=== PATIENT | female | born 2000 | race Caucasian/White ===

== ENCOUNTER 2021-08-03 00:38 | Emergency (ER) | payer MEDICAID, SELFPAY ==
[2021-08-03 00:50] VITALS: BP 161/109; PULSE 72; RESP 18; TEMP 36.9; O2SAT 98; BMI 34.3
--- NOTE | 2021-08-03 01:00 | W.ED.PREGNAN ---
HPI - General: Chief complaint: Vaginal Bleeding Stated complaint: 2 Months Preg\ Bleeding Time Seen by Provider: 08/03/21 00:47 Source: patient Mode of arrival: ambulatory Limitations: no limitations History of Present Illness: HPI Narrative: 20-year-old female who believes she is 6 to 8 weeks states that she has been having some vaginal spotting over the last 3 to 4 days states that starting tonight 4 to 5 hours ago she has had heavier bleeding she states it is on and off to go through a pad denies any clots or tissue passed. She denies any pain she denies any worsening proving factors. This is her first . Associated symptoms: Deny abdominal pain, headache(s), nausea or vomiting Review of Systems Const: Denies: fever(s), chills, body aches or change in appetite Eyes: Denies: blurry vision or eye discomfort ENMT: Denies: throat pain or dental pain Card: Denies: chest pain Resp: Denies: dyspnea GI: Denies: abdominal pain, nausea, vomiting or diarrhea : Reports: vaginal bleeding Musc: Denies: neck pain or back pain Skin/Breast: Denies: rash Neuro: Denies: headache(s) Psych: Denies: depression Cristian/Lymph: Denies: easy bruising All/Imm: Denies: urticaria Physical Exam Const: COMMON NORMALS: no acute distress, patient oriented x3 and healthy appearing HENMT: COMMON NORMALS: normocephalic and atraumatic HEAD & SCALP: normocephalic and atraumatic Eye: COMMON NORMALS: Equal, round and reactive pupils present and EOMs intact bilaterally PUPIL: Yes Equal, round and reactive pupils present Neck/C-Spine: COMMON NORMALS: full ROM and supple Chest: COMMONS NORMALS: normal inspection of the chest and normal palpation of entire chest wall Resp: COMMON NORMALS: normal respiratory effort, No retractions, No use of accessory muscles and clear to auscultation bilaterally AUSCULTATION: clear to auscultation bilaterally Cardio: COMMON NORMALS: regular rate, regular rhythm and No murmurs present (Cardio) RATE: regular rate RHYTHM: regular rhythm GI: COMMON NORMALS: Normal to inspection, nondistended, normoactive bowel sounds present, Soft to palpation, non-tender and no masses PALPATION: Yes Soft to palpation : OTHER: Patient does have blood along with clot in the vaginal vault cervix is slightly open with some blood coming from the cervical os no tissue noted Extremity: COMMON NORMALS: normal to inspection and full ROM Neuro: COMMON NORMALS: patient oriented x3, moves all extremities and no focal motor deficits Psych: COMMON NORMALS: mental status grossly normal, Normal thought process present and cooperative THOUGHT PROCESS: Normal thought process present Skin: COMMON NORMALS: no rashes or lesions noted and no wounds GENERAL SKIN EXAM: no rashes or lesions noted Course Vital Signs: Vital signs: Vital Signs Temperature 98.4 F 08/03/21 00:50 Pulse Rate 64 08/03/21 01:41 Respiratory Rate 17 08/03/21 01:41 Blood Pressure 133/82 08/03/21 01:41 Pulse Oximetry 98 08/03/21 01:41 MDM - OB/Uterine Contractions MDM Narrative: Medical decision making narrative: Patient presents here with a threatened miscarriage is likely inevitable. Cervix is slightly open ultrasound shows likely normal wall motion as well she has no signs of ectopic she has follow-up with her OB this week and is to follow-up as scheduled her bleeding is minimal here she does not require RhoGam she is stable for discharge is to follow-up as scheduled and return if worsening. Lab Data: Labs: Lab Results 08/03/21 08/03/21 08/03/21 01:36 01:36 01:36 WBC 15.2 10^3/uL H 10 ^3/uL (4.0-10.0) RBC 4.46 10^6/uL 10^6 /uL (4.1-5.3) Hgb 14.0 g/dL g/dL (11.5-15.3) Hct 42.4 % % (37.0-47.0) MCV 95.1 fl fl (81-99) MCH 31.4 pg pg (28.0-34.0) MCHC 33.0 g/dL g/dL (30.0-36.0) RDW 14.7 % % (12.1-15.1) Plt Count 275 10^3/cmm 10^3 /cmm (130-400) MPV 9.8 fL fL (7.4-10.4) Neut % (Auto) 71.7 % % Lymph % (Auto) 20.1 % % [place] % (Auto) 5.7 % % Eos % (Auto) 0.3 % % Baso % (Auto) 0.3 % % Neut # (Auto) 10.91 10^3/uL H 1 0^3/uL (1.8-7.7) Lymph # (Auto) 3.1 10^3/uL 10^3/ uL (0.8-4.8) [place] # (Auto) 0.9 10^3/uL 10^3/ uL (0.2-0.9) Eos # (Auto) 0.1 10^3/uL 10^3/ uL (0.0-0.8) Baso # (Auto) 0.1 10^3/uL 10^3/ uL (0.0-0.1) Nucleated RBC % (a uto) 0 % % Nucleated RBCs # 0.0 /100WBC /100W BC Sodium 139 mmol/L mmol/L (136-145) Potassium 4.3 mmol/L mmol/L (3.5-5.1) Chloride 100 mmol/L mmol/L (98-107) Carbon Dioxide 25 mmol/L mmol/L (22-29) Anion Gap 18.3 (5-19) BUN 14 mg/dL mg/dL (6-20) Creatinine 0.6 mg/dL mg/dL (0.5-0.9) GFR Calculation 126.2 mL/min mL/m in (90-130) Glucose 87 mg/dL mg/dL (65-115) Calculated Osmolal ity 288 mOsm/kg mOsm/ kg (285-295) Calcium 9.2 mg/dL mg/dL (8.5-10.5) Total Bilirubin 0.2 mg/dL mg/dL (0.15-1.2) AST 15 U/L U/L (0-32) ALT 23 U/L U/L (0-33) Alkaline Phosphata se 55 IU/L IU/L (35-105) Total Protein 6.9 g/dL g/dL (6.6-8.7) Albumin 4.3 g/dL g/dL (3.5-5.2) Globulin 2.6 g/dL g/dL (1.3-4.6) Ser , Alicia i-Qnt 3004.00 mIU/mL mI U/mL Blood Type A Positive Rho(D) Type Positive Antibody Screen Negative Discharge Plan Discharge Patient Disposition: Home Clinical Impression: Threatened Condition: Stable Discharge Orders: Discharge ED (Routine); Ordered 08/03/21 Ordered By: Sofiya Lock Discharge Diet: Advance as tolerated Discharge Activity: Resume usual activity Patient Instructions: Threatened Miscarriage (ED) Coding Level of Care Code ED Produce Associate for Ben Fwd Exam Comprehensive
[2021-08-03 01:41] VITALS: BP 133/82; PULSE 64; RESP 17; O2SAT 98
[2021-08-03 02:07] LABS: Basophils # 0.1 10^3/uL (0.0-0.1); Basophils % 0.3 %; Eosinophils # 0.1 10^3/uL (0.0-0.8); Eosinophils % 0.3 %; Hematocrit 42.4 % (37.0-47.0); Lymphocytes # 3.1 10^3/uL (0.8-4.8); Lymphocytes % 20.1 %; Mean Corpuscular Hemoglobin 31.4 pg (28.0-34.0); Mean Corpuscular Volume 95.1 fl (81-99); Mean Platelet Volume 9.8 fL (7.4-10.4); Monocytes # 0.9 10^3/uL (0.2-0.9); Monocytes % 5.7 %; Neutrophils # 10.91 10^3/uL (1.8-7.7); Neutrophils % 71.7 %; Nucleated Red Blood Cells % 0 %; Platelet Count 275 10^3/cmm (130-400); Red Blood Count 4.46 10^6/uL (4.1-5.3); Red Cell Distribution Width 14.7 % (12.1-15.1); White Blood Count 15.2 10^3/uL (4.0-10.0)
--- NOTE | 2021-08-03 02:37 | USR_ITS ---
PROCEDURE INFORMATION: Exam: US , Transvaginal Exam date and time: 08/03/2021 2:37 AM Age: 20 years old Clinical indication: Lmp or gestational age (in weeks): 9w0d; Antepartum complications; Bleeding; ; Patient HX: ; Additional info: Threatened ab TECHNIQUE: Imaging protocol: Real-time transvaginal obstetrical ultrasound of the maternal pelvis with image documentation. Transvaginal imaging was used for better evaluation of the fetus, adnexa, and/or cervix. COMPARISON: No relevant prior studies available. FINDINGS: Gestation: Gestational sac is present in the lower uterine segment and is partially surrounded by fluid. Mean gestational sac diameter is 1.06 cm. No pole. No heart rate is identified. BIOMETRY: Gestational age (AUA): Estimated gestational age = 6 weeks/1 day. MATERNAL: Right ovary/adnexa: Right ovary is normal and measures 2.8 x 1.5 x 2 cm. Normal ovarian blood flow. Normal ovarian blood flow. Left ovary/adnexa: Left ovary is normal and measures 2 x 1.3 x 1.7 cm . Intraperitoneal space: Tiny amount of free fluid in the pelvic cul-de-sac. US/US OB transvaginal [id number] IMPRESSION: Gestational sac present in the lower uterine segment with surrounding fluid. Findings are suspicious for failed . No pole or heart rate. Radiation Dose CTDIVOL = (mGy): DLP = (mGy-cm)
[2021-08-03 02:44] LABS: Alanine Aminotransferase 23 U/L (0-33); Albumin Level 4.3 g/dL (3.5-5.2); Alkaline Phosphatase 55 IU/L (35-105); Aspartate Amino Transferase 15 U/L (0-32); Blood Urea Nitrogen 14 mg/dL (6-20); Calcium 9.2 mg/dL (8.5-10.5); Carbon Dioxide 25 mmol/L (22-29); Chloride 100 mmol/L (98-107); Globulin 2.6 g/dL (1.3-4.6); Glomerular Filtration Rate 126.2 mL/min (90-130); Glucose 87 mg/dL (65-115); Osmolality Calculated 288 mOsm/kg (285-295); Sodium 139 mmol/L (136-145); Total Bilirubin 0.2 mg/dL (0.15-1.2); Total Protein 6.9 g/dL (6.6-8.7)
[2021-08-03 02:50] LABS: Anion Gap 18.3 (5-19); Potassium 4.3 mmol/L (3.5-5.1)
[2021-08-03 03:45] VITALS: BP 130/93
== END 2021-08-03 03:47 | disposition home or self-care (01) ==
PROVIDERS: Nurse Practitioner Family; Emergency Provider Emergency Medicine
DX: O20.0 Threatened abortion (principal); Z3A.01 Less than 8 weeks gestation of pregnancy
CPT/HCPCS: 76817; 80053; 84702; 85025; 86850; 86900; 99283

== ENCOUNTER 2022-06-14 12:45 | Emergency (ER) | payer MEDICAID, SELFPAY ==
[2022-06-14 12:48] VITALS: BP 122/72; PULSE 94; RESP 16; TEMP 36.1; O2SAT 95
--- NOTE | 2022-06-14 12:55 | W.ED.GENADLT ---
HPI - General Adult General: Chief complaint: General Medical Stated complaint: can't talk, allergies Time Seen by Provider: 06/14/22 12:54 History of Present Illness: Patient is a 21-year-old female comes to the ED with sore throat. Patient says she has been having a lot of nasal drainage and congestion over the past couple days. 3 days ago she started having a scratchy voice and 2 days ago her voice was completely gone. Over the past 24 hours her voice started to improve. She denies any fevers, chills, trouble breathing, throat tightening/swelling. She states her sore throat is mild. Endorses voice hoarseness. Denies painful swallowing or any trouble swallowing. Associated symptoms: Deny chest pain, dyspnea, headache(s), nausea, rash, palpitations or vomiting Review of Systems Const: Denies: fever(s), chills or fatigue Eyes: Denies: change in vision or eye discomfort ENMT: Reports: throat pain and hoarseness; Denies: odynophagia, swelling of lips/tongue, nasal discharge or nasal congestion Card: Denies: chest pain, palpitations, edema, swelling of feet/ankles, dyspnea on exertion or orthopnea Resp: Denies: dyspnea, productive cough or non-productive cough GI: Denies: abdominal pain, nausea, vomiting, diarrhea, constipation or hematochezia : Denies: flank pain, dysuria or hematuria Musc: Denies: neck pain, back pain or extremity swelling Skin/Breast: Denies: rash or new lesions Neuro: Denies: headache(s), numbness in extremities or weakness in extremities [facility] ED PFSH: Medical History (Updated 06/15/22 @ 11:46 by ANKIT Hercules) No pertinent family history No pertinent past medical history Female Reproductive History: Date of last menstrual period: 05/27/21 Physical Exam Const: COMMON NORMALS: no acute distress, patient oriented x3, healthy appearing and alert GENERAL APPEARANCE: cooperative and comfortable OTHER: Patient's voice is hoarse and a little scratchy. HENMT: COMMON NORMALS: normocephalic HEAD & SCALP: normocephalic MOUTH: Normal oral and palatal mucosa present THROAT: posterior oropharynx normal, tonsils normal and uvula midline Neck/C-Spine: COMMON NORMALS: supple GENERAL: Yes normal visual inspection Resp: COMMON NORMALS: normal respiratory effort, No retractions, No use of accessory muscles and clear to auscultation bilaterally AUSCULTATION: clear to auscultation bilaterally Cardio: COMMON NORMALS: regular rate, regular rhythm, S1 normal heart sound present, S2 normal heart sound present, No gallops present (Cardio), No clicks present (Cardio), No murmurs present (Cardio) and Peripheral pulses 2+ throughout RATE: regular rate RHYTHM: regular rhythm HEART SOUNDS: S1 normal heart sound present and S2 normal heart sound present PERIPHERAL PULSES: Peripheral pulses 2+ throughout GI: COMMON NORMALS: Normal to inspection, nondistended, normoactive bowel sounds present, Soft to palpation, non-tender and no masses PALPATION: Yes Soft to palpation : COMMON NORMALS: Yes no CVA tenderness BLADDER/KIDNEY EXAM: Yes no CVA tenderness Back/Pelvis: COMMON NORMALS: no CVA tenderness Extremity: COMMON NORMALS: normal to inspection Neuro: COMMON NORMALS: patient oriented x3 SENSORIUM/ORIENTATION: Yes alert GAIT: Yes Normal gait present Skin: GENERAL SKIN EXAM: dry skin Course Vital Signs: Vital signs: Vital Signs Temperature 97.0 F L 06/14/22 12:48 Pulse Rate 94 06/14/22 12:48 Respiratory Rate 16 06/14/22 12:48 Blood Pressure 122/72 06/14/22 12:48 Pulse Oximetry 95 06/14/22 12:48 Oxygen Delivery Me thod 06/14/22 12:48 MDM - General Adult Medical Decision Making Patient is a 21-year-old female comes to the ED with sore throat. Patient says she has been having a lot of nasal drainage and congestion over the past couple days. 3 days ago she started having a scratchy voice and 2 days ago her voice was completely gone. Over the past 24 hours her voice started to improve. She denies any fevers, chills, trouble breathing, throat tightening/swelling. Vitals are stable. Patient's voice is a little hoarse and scratchy but the rest of her exam is benign. She appears in no acute distress or pain. Strep was negative. Patient was diagnosed with viral laryngitis and was discharged home. Told to follow-up with PCP within the next week for reevaluation. Return to ED precautions given. Patient understood and agreed with plan. Lab Data I reviewed the patient's lab results. Laboratory Results Group A Strep Rapid Negative (Negative) 06/14/22 13:30 Discharge Plan Discharge Patient Disposition: Home Clinical Impression: Viral laryngitis Condition: Stable Discharge Orders: Discharge ED (Routine); Ordered 06/14/22 Ordered By: Rich Salgado Discharge Diet: Regular Discharge Activity: Resume usual activity Patient Instructions: Acute Laryngitis - Adult Activity Restrictions/Additional Instructions: Follow-up with medical provider as directed in the next 5 to 7 days for reevaluation. Take medications as prescribed. Return to the ER or your medical provider if condition worsens. Please read and understand discharge instructions. Thank you for choosing [facility] for your healthcare needs today. Please realize this is an emergency room and that we are providing you with a medical screening exam and this may not be complete and all inclusive of all the testing and or work up that you may need to determine your ailment or severity of your illness. It is very important that you follow up as instructed or that you return to the Emergency Department should you have concerns or if your condition changes or worsens in any way. Coding Level of Care Code ED Director Of Collections for Ben Newby Exam Comprehensive
[2022-06-14 14:05] LABS: Rapid Strep A Test Negative (Negative)
== END 2022-06-14 14:47 | disposition home or self-care (01) ==
PROVIDERS: Emergency Provider Physician Assistant
DX: J04.0 Acute laryngitis (principal)
CPT/HCPCS: 87081; 87880; 99283

== ENCOUNTER 2022-10-06 07:49 | Outpatient (CLI) | payer OTHER, MEDICAID, SELFPAY ==
--- NOTE | 2022-10-06 | US_ITS ---
WS: [id number] OBSTETRICAL ULTRASOUND COMPLETE HISTORY: ANATOMY SCAN COMPARISON: None available. Single intrauterine gestation in breech presentation. Cervix is Closed and normal length. Cervical length is 4.1 cm. Normal amount of amniotic fluid surrounds the fetus. Placenta: Posterior and LEFT, no previa or abruption. Placenta grade 1 Heart: 144 BPM. Four chambers are identified. RIGHT and LEFT outflow tracts are unremarkable. Anatomy: Intracranial structures and spine are normal. kidneys, stomach and urinary bladd er are unremarkable. Abdominal wall, three-vessel cord and cord insertion site are normal. 4 extremities are present. profile: Unremarkable. Gender: Male. measurements: BPD = 4.8 cm = 20w4d HC = 18.9 cm = 21w2d AC = 16.0 cm = 21w1d FL = 3.4 cm = 20w4d EFW: 384 g. Biometry is internally concordant. AGA by ultrasound: 20w6d MARY by ultrasound: 02/17/2023 US/US OB >= 14 weeks fetus [id number] IMPRESSION: 1. Single intrauterine gestation of 20w6d with an MARY of 02/17/2023. 2. Unremarkable screening survey of anatomy.
== END 2022-10-06 07:50 | disposition home or self-care (01) ==
LOC: RAD 07:52
PROVIDERS: PCP Family Medicine; Visit Provider Family Medicine
DX: Z34.82 Encounter for supervision of other normal pregnancy, second trimester (principal)
CPT/HCPCS: 76805

== ENCOUNTER 2023-01-05 12:06 | Outpatient (CLI) | payer OTHER, MEDICAID, SELFPAY ==
[2023-01-05 12:25] VITALS: BP 139/94; PULSE 80
[2023-01-05 12:41] VITALS: BP 139/84; RESP 16
[2023-01-05 12:42] VITALS: BP 145/78; PULSE 53
[2023-01-05 12:44] VITALS: BMI 38.0
[2023-01-05 12:57] VITALS: BP 142/86; PULSE 56
[2023-01-05 13:26] LABS: Add Urine Microscopic? NO; Charge for UA Resulting for Rev
[2023-01-05 13:29] LABS: Bilirubin Urine Neg (Negative); Blood Urine Neg (Negative); Glucose Urine UA Norm (Normal); Ketones Urine 1+ (Negative); Leukocyte Esterase Urine Negative (Negative); Nitrate Urine Negative (Negative); Protein Urine Neg (Negative); Urine Appearance Clear (CLEAR); Urine Color Yellow (Yellow); Urobilinogen Urine Neg (Negative); pH Urine 6.5 (5-7)
[2023-01-05 13:35] LABS: Basophils % 0.1 %; Eosinophils % 0.5 %; Hematocrit 37.5 % (37.0-47.0); Hemoglobin 12.2 g/dL (11.5-15.3); Lymphocytes # 1.9 10^3/uL (0.8-4.8); Lymphocytes % 22.3 %; Mean Corpuscular HGB Conc 32.5 g/dL (30.0-36.0); Mean Corpuscular Volume 95.4 fl (81-99); Mean Platelet Volume 11.1 fL (7.4-10.4); Monocytes # 0.5 10^3/uL (0.2-0.9); Monocytes % 5.6 %; Neutrophils # 6.08 10^3/uL (1.8-7.7); Nucleated Red Blood Cells % 0 %; Platelet Count 210 10^3/cmm (130-400); Red Blood Count 3.93 10^6/uL (4.1-5.3); Red Cell Distribution Width 13.6 % (12.1-15.1); White Blood Count 8.6 10^3/uL (4.0-10.0)
[2023-01-05 14:03] LABS: Urine Creatinine 124 mg/dL (28-217); Urine Protein Random 19 mg/dL
[2023-01-05 14:03] LABS: Alanine Aminotransferase 19 U/L (0-33); Albumin Level 3.3 g/dL (3.5-5.2); Alkaline Phosphatase 100 U/L (35-105); Aspartate Amino Transferase 24 U/L (0-32); Blood Urea Nitrogen 6 mg/dL (6-20); Carbon Dioxide 20 mmol/L (22-29); Chloride 103 mmol/L (98-107); Globulin 2.7 g/dL (1.3-4.6); Glomerular Filtration Rate 152.9 mL/min (90-130); Glucose 76 mg/dL (65-115); Osmolality Calculated 278 mOsm/kg (285-295); Sodium 136 mmol/L (136-145); Total Bilirubin 0.3 mg/dL (0.15-1.2); Uric Acid 5.3 mg/dL (2.4-5.7)
[2023-01-05 14:08] LABS: UPRO/UCREAT Ratio 0.15 mg/mg CR
== END 2023-01-05 13:15 | disposition home or self-care (01) ==
LOC: OPOB 12:06 → OBGYN 12:07
PROVIDERS: PCP Family Medicine; Visit Provider Family Medicine
DX: O24.419 Gestational diabetes mellitus in pregnancy, unspecified control (principal)
CPT/HCPCS: 36415; 59025; 80053; 81003; 82570; 84156; 84550; 85025; 99211

== ENCOUNTER 2023-01-08 10:23 | Outpatient (CLI) | payer OTHER, MEDICAID, SELFPAY ==
[2023-01-08 10:23] VITALS: BMI 38.2
[2023-01-08 10:34] VITALS: BP 165/90; PULSE 71
[2023-01-08 10:45] VITALS: BP 152/87; PULSE 78
[2023-01-08 10:55] VITALS: BP 149/82; PULSE 64
== END 2023-01-08 11:05 | disposition home or self-care (01) ==
LOC: OPOB 10:28 → OBGYN 10:29
PROVIDERS: Absent Provider Family Medicine; PCP Family Medicine; Visit Provider Family Medicine
DX: O24.419 Gestational diabetes mellitus in pregnancy, unspecified control (principal); Z3A.00 Weeks of gestation of pregnancy not specified
CPT/HCPCS: 59025; 99211

== ENCOUNTER 2023-01-12 18:50 | Outpatient (CLI) | payer OTHER, MEDICAID, SELFPAY ==
[2023-01-12 18:49] VITALS: BMI 38.0
[2023-01-12 19:06] VITALS: BP 127/74; PULSE 64
[2023-01-12 19:22] VITALS: BP 143/88; PULSE 57
[2023-01-12 19:32] LABS: Add Urine Microscopic? NO; Charge for UA Resulting for Rev
[2023-01-12 19:34] LABS: Basophils % 0.3 %; Eosinophils % 0.3 %; Hematocrit 33.6 % (37.0-47.0); Hemoglobin 11.2 g/dL (11.5-15.3); Lymphocytes # 1.9 10^3/uL (0.8-4.8); Lymphocytes % 19.4 %; Mean Corpuscular HGB Conc 33.3 g/dL (30.0-36.0); Mean Corpuscular Hemoglobin 31.1 pg (28.0-34.0); Mean Corpuscular Volume 93.3 fl (81-99); Mean Platelet Volume 11.2 fL (7.4-10.4); Monocytes # 0.6 10^3/uL (0.2-0.9); Monocytes % 6.2 %; Neutrophils # 7.14 10^3/uL (1.8-7.7); Neutrophils % 73.2 %; Nucleated Red Blood Cells % 0 %; Platelet Count 227 10^3/cmm (130-400); Red Cell Distribution Width 13.5 % (12.1-15.1); White Blood Count 9.8 10^3/uL (4.0-10.0)
[2023-01-12 19:36] VITALS: BP 138/83; PULSE 78
[2023-01-12 19:51] VITALS: BP 158/88; PULSE 86
[2023-01-12 19:51] LABS: Bilirubin Urine Neg (Negative); Blood Urine Neg (Negative); Glucose Urine UA Norm (Normal); Ketones Urine Negative (Negative); Leukocyte Esterase Urine Negative (Negative); Nitrate Urine Negative (Negative); Protein Urine Neg (Negative); Urine Appearance Clear (CLEAR); Urine Color Yellow (Yellow); Urobilinogen Urine Norm (Negative); pH Urine 5 (5-7)
[2023-01-12 20:00] LABS: Alanine Aminotransferase 22 U/L (0-33); Albumin Level 3.4 g/dL (3.5-5.2); Alkaline Phosphatase 98 U/L (35-105); Anion Gap 19.7 (5-19); Aspartate Amino Transferase 23 U/L (0-32); Blood Urea Nitrogen 12 mg/dL (6-20); Calcium 8.5 mg/dL (8.5-10.5); Carbon Dioxide 16 mmol/L (22-29); Chloride 111 mmol/L (98-107); Globulin 2.4 g/dL (1.3-4.6); Glomerular Filtration Rate 197.8 mL/min (90-130); Glucose 80 mg/dL (65-115); Osmolality Calculated 293 mOsm/kg (285-295); Potassium 4.7 mmol/L (3.5-5.1); Sodium 142 mmol/L (136-145); Total Bilirubin 0.2 mg/dL (0.15-1.2); Total Protein 5.8 g/dL (6.6-8.7)
[2023-01-12 20:02] LABS: Urine Creatinine 125 mg/dL (28-217)
[2023-01-12 20:03] LABS: UPRO/UCREAT Ratio 0.25 mg/mg CR; Urine Protein Random 31 mg/dL
[2023-01-12 20:06] VITALS: BP 149/89; PULSE 55
== END 2023-01-12 20:14 | disposition home or self-care (01) ==
LOC: OPOB 18:50 → OBGYN 18:53
PROVIDERS: PCP Family Medicine; Visit Provider Family Medicine
DX: O16.9 Unspecified maternal hypertension, unspecified trimester (principal); O24.419 Gestational diabetes mellitus in pregnancy, unspecified control; Z3A.00 Weeks of gestation of pregnancy not specified
CPT/HCPCS: 36415; 59025; 80053; 81003; 82570; 84156; 84550; 85025

== ENCOUNTER 2023-01-15 16:25 | Outpatient (CLI) | payer OTHER, MEDICAID, SELFPAY ==
[2023-01-15 16:25] VITALS: BMI 37.6
[2023-01-15 16:49] VITALS: BP 141/80; PULSE 68
[2023-01-15 16:59] VITALS: BP 132/72; PULSE 56
[2023-01-15 17:43] VITALS: BP 163/89; PULSE 74
[2023-01-15 17:46] VITALS: BP 141/67; PULSE 53
== END 2023-01-15 18:06 | disposition home or self-care (01) ==
LOC: OPOB 16:31 → OBGYN 16:33
PROVIDERS: PCP Family Medicine; Visit Provider Family Medicine
DX: Z36.9 Encounter for antenatal screening, unspecified (principal)
CPT/HCPCS: 59025; 99211

== ENCOUNTER 2023-01-19 18:19 | Outpatient (CLI) | payer OTHER, MEDICAID, SELFPAY ==
[2023-01-19 18:38] VITALS: BMI 37.7
[2023-01-19 18:41] VITALS: RESP 17
[2023-01-19 18:53] VITALS: BP 136/69; PULSE 80
[2023-01-19 19:08] VITALS: BP 137/72; PULSE 78
[2023-01-19 19:23] VITALS: BP 129/75; PULSE 71
[2023-01-19 19:24] VITALS: RESP 16
== END 2023-01-19 19:30 | disposition home or self-care (01) ==
LOC: OPOB 18:21 → OBGYN 18:24
PROVIDERS: PCP Family Medicine; Visit Provider Family Medicine
DX: O24.419 Gestational diabetes mellitus in pregnancy, unspecified control (principal); Z3A.00 Weeks of gestation of pregnancy not specified
CPT/HCPCS: 59025

== ENCOUNTER 2023-01-22 13:45 | Outpatient (CLI) | payer OTHER, MEDICAID, SELFPAY ==
[2023-01-22 14:00] VITALS: BP 130/63; PULSE 84
[2023-01-22 14:04] VITALS: RESP 16; BMI 37.9
[2023-01-22 14:14] VITALS: BP 130/60; PULSE 77
[2023-01-22 14:29] VITALS: BP 126/58; PULSE 65
[2023-01-22 14:44] VITALS: BP 126/58; PULSE 65
== END 2023-01-22 14:45 | disposition home or self-care (01) ==
LOC: OPOB 13:46 → OBGYN 13:47
PROVIDERS: PCP Family Medicine; Visit Provider Family Medicine
DX: Z36.9 Encounter for antenatal screening, unspecified (principal)
CPT/HCPCS: 59025

== ENCOUNTER 2023-01-29 20:16 | Outpatient (CLI) | payer OTHER, MEDICAID, SELFPAY ==
[2023-01-29 20:20] VITALS: BMI 37.9
[2023-01-29 20:24] VITALS: BP 160/95; PULSE 80
[2023-01-29 20:25] VITALS: TEMP 36.1
[2023-01-29 20:41] VITALS: BP 155/107; PULSE 80
[2023-01-29 20:57] VITALS: BP 153/97; PULSE 67
[2023-01-29 21:05] VITALS: BP 153/97; PULSE 67; RESP 18
[2023-01-29 21:10] VITALS: RESP 18
== END 2023-01-29 21:20 | disposition home or self-care (01) ==
LOC: OPOB 20:17 → OBGYN 20:18
PROVIDERS: PCP Family Medicine; Visit Provider Family Medicine
DX: Z36.9 Encounter for antenatal screening, unspecified (principal)
CPT/HCPCS: 59025

== ENCOUNTER 2023-02-02 11:21 | Inpatient (IN) | payer OTHER, MEDICAID, SELFPAY ==
[2023-02-02] VITALS (172 sets, daily range): BP systolic 112–176; BP diastolic 56–107; PULSE 56–106; RESP 16–18; O2SAT 88–100; BMI 37.5
[2023-02-02 11:54] LABS: Basophils % 0.3 %; Eosinophils % 0.2 %; Hematocrit 37.5 % (37.0-47.0); Hemoglobin 12.7 g/dL (11.5-15.3); Lymphocytes # 2.3 10^3/uL (0.8-4.8); Mean Corpuscular HGB Conc 33.9 g/dL (30.0-36.0); Mean Corpuscular Hemoglobin 31.7 pg (28.0-34.0); Mean Corpuscular Volume 93.5 fl (81-99); Mean Platelet Volume 11.2 fL (7.4-10.4); Monocytes # 0.6 10^3/uL (0.2-0.9); Neutrophils # 9.01 10^3/uL (1.8-7.7); Neutrophils % 74.5 %; Nucleated Red Blood Cells % 0 %; Platelet Count 240 10^3/cmm (130-400); Red Blood Count 4.01 10^6/uL (4.1-5.3); Red Cell Distribution Width 13.9 % (12.1-15.1); White Blood Count 12.1 10^3/uL (4.0-10.0)
[2023-02-02 12:05] LABS: Amphetamines Screen Urine Negative (Negative); Barbiturates Screen Urine Negative (Negative); Benzodiazepines Screen Urine Negative (Negative); Cocaine Screen Urine Negative (Negative); Opiate Screen Urine Negative (Negative); PCP Screen Urine Negative (Negative); THC Screen Urine Negative (Negative)
[2023-02-02] MEDS: lactated ringers 1,000 ML 999 ML IV ×3 (12:10→21:30)
[2023-02-02] MEDS: hyDROXYzine 25 mg Capsule 50 MG PO (12:11)
[2023-02-02 12:12] LABS: Urine Appearance Cloudy (CLEAR); Urine Color Yellow (Yellow)
[2023-02-02 12:13] LABS: Add Urine Microscopic? YES; Bilirubin Urine Neg (Negative); Blood Urine 3+ (Negative); Glucose Urine UA Norm (Normal); Ketones Urine Negative (Negative); Leukocyte Esterase Urine Negative (Negative); Nitrate Urine Negative (Negative); Protein Urine 1+ (Negative); Urobilinogen Urine Norm (Negative); pH Urine 8 (5-7)
[2023-02-02 12:14] LABS: Alanine Aminotransferase 24 U/L (0-33); Albumin Level 3.4 g/dL (3.5-5.2); Alkaline Phosphatase 144 U/L (35-105); Aspartate Amino Transferase 25 U/L (0-32); Blood Urea Nitrogen 6 mg/dL (6-20); Calcium 8.7 mg/dL (8.5-10.5); Carbon Dioxide 20 mmol/L (22-29); Chloride 103 mmol/L (98-107); Globulin 2.8 g/dL (1.3-4.6); Glomerular Filtration Rate 152.9 mL/min (90-130); Glucose 78 mg/dL (65-115); Osmolality Calculated 278 mOsm/kg (285-295); Sodium 136 mmol/L (136-145); Total Bilirubin 0.3 mg/dL (0.15-1.2); Total Protein 6.2 g/dL (6.6-8.7); Uric Acid 5.8 mg/dL (2.4-5.7)
[2023-02-02 12:21] LABS: Anion Gap 17.1 (5-19); Potassium 4.1 mmol/L (3.5-5.1)
[2023-02-02 12:22] LABS: UPRO/UCREAT Ratio 2.19 mg/mg CR; Urine Creatinine 21 mg/dL (28-217); Urine Protein Random 46 mg/dL
[2023-02-02] MEDS: labetalol 5 mg/mL SDV 20mL 20 MG IVP ×2 (12:29→21:44)
[2023-02-02 12:34] LABS: Actim Prom Positive
[2023-02-02 12:48] LABS: Add Urine Culture? No; Amorphous Sediment Urine 2+ /hpf; Bacteria Urine TRACE /hpf; RBC Urine 0-4 /hpf (0-2); Squamous Epithelial Cell Urine 15-25 /hpf (0-5); WBC Urine 0-4 /hpf (0-5)
[2023-02-02] MEDS: miSOPROStol 100 mcg tablet 25 MCG VAGINAL (13:42)
[2023-02-02] MEDS: magnesium sulfate premix 4 GM/100 ML PREMIX IV (14:05)
[2023-02-02] MEDS: magnesium sulfate premix 20 GM/500 ML BAG IV (14:05)
[2023-02-02 16:26] LABS: Glucose Point of Care 71 mg/dL (70-110)
[2023-02-02] MEDS: acetaminophen 325 mg Tablet 650 MG PO ×2 (16:48→22:43)
[2023-02-02] MEDS: metformin XR 500 MG Tablet PO (18:22)
[2023-02-02] MEDS: fentaNYL 50 mcg/mL INJ 2mL IVP ×2 (18:41→20:36)
[2023-02-02 20:41] LABS: Magnesium Level (OB Only) 4.7 mg/dL (5.0-7.5)
--- NOTE | 2023-02-02 22:05 | ANES.PREANE2 ---
Pre-Anesthetic Assessment Height/Weight: Height 1.6 m Weight 96.162 kg Pulse Resp BP Pulse Ox O2 Del Method 87 18 169/89 97 Room Air 02/02/23 22:00 02/02/23 20:36 02/02/23 21:58 02/02/23 22:00 02/02/23 11:38 Preop Diagnosis: labor epidural Familial anesthetic complications: none Was Beta Rashida taken within 24 hours: Yes Was Clonidine taken within 24 hours: N/A Last Intake: 21:00 Social No alcohol and No tobacco Exam alert, oriented x 3, clear to auscultation bilaterally and regular rate & rhythm Airway Submandibular: within normal limits Cervical ROM: within normal limits Mallampati: Class II Dentition: full Pulmonary None reported CV/HEM Hypertension (with ) None reported Hepatic None reported GI Gastroesophageal Reflux Disease Metabolic Diabetes Mellitus (gestational) and Morbid Obesity Musc/skel Lower Back Pain Neuropsych None reported Anesthetic Plan ASA status: 2 Anesthesia: Regional (specify below) (epidural) Medications/Allergies Home Medications Medication Instructions Recorded Confirmed Last Taken Type metformin 750 mg tablet,extended 750 mg PO DAILY 01/08/23 02/02/23 02/02/23 08:00 History release 24 hr omeprazole 20 mg capsule,delayed 20 mg PO DAILY 01/08/23 02/02/23 02/02/23 08:00 History release no.58-iron bisglycinate cap PO 01/08/23 02/02/23 08:00 History 10 mg iron-folic acid 400 mcg capsule Allergies Allergy/AdvReac Type Severity Reaction Status Date / Time No Known Allergies Allergy Verified 06/14/22 12:52 Current Medications Generic Name Dose Route Start Last Admin Trade Name Freq PRN Reason Stop Dose Admin Acetaminophen 650 mg 02/02/23 13:11 02/02/23 16:48 Acetaminophen 325 Mg Tablet PO 650 mg Q6H PRN Administration MILD TO MODERATE PAIN Fentanyl 25 - 100 mcg 02/02/23 11:29 02/02/23 20:36 Fentanyl 50 Mcg/Ml Inj 2ml IVP 50 mcg Q1H PRN Administration SEVERE PAIN Hydroxyzine Pamoate 50 mg 02/02/23 11:29 02/02/23 12:11 Hydroxyzine 25 Mg Capsule PO 50 mg QID PRN Administration sleep, agitation or itching Dextrose/Lactated Ringer's 1,000 mls @ 125 mls/hr 02/02/23 11:30 02/02/23 15:49 Dextrose 5%-Lactated Ringers IV Not Given .Q8H ERIN Lactated Ringer's 1,000 mls @ 999 mls/hr 02/02/23 11:29 02/02/23 15:52 Lactated Ringers IV 999 mls/hr .Q1H1M PRN Administration Per L&D Rescitation Protocol Magnesium Sulfate 20 gm in 500 mls @ 50 mls/hr 02/02/23 13:15 02/02/23 14:05 Magnesium Sulfate Premix IV 50 mls/hr .Q10H ERIN Administration Lactated Ringer's 1,000 mls @ 125 mls/hr 02/02/23 16:00 02/02/23 21:30 Lactated Ringers IV 999 mls/hr .Q8H ERIN Administration Oxytocin 30 unit/ Sodium 503 mls @ 1 mls/hr 02/02/23 19:15 02/02/23 21:00 Chloride IV 7 mls/hr .Q24H ERIN 7 mls/hr Titration Protocol Labetalol HCl 20 mg 02/02/23 11:29 02/02/23 21:44 Labetalol 5 Mg/Ml Sdv 20ml IVP 20 mg PRN PRN Administration HYPERTENSION Protocol [facility] Anesthesia Medical History (Updated 06/22/22 @ 00:01 by RACHEL Penny) No pertinent family history No pertinent past medical history Female Reproductive History : 2 Data Anesthesia 02/02/23 11:40 02/02/23 11:40 Short CBC 02/02/23 Range/Units 11:40 WBC 12.1 H (4.0-10.0) 10^3/uL Hgb 12.7 (11.5-15.3) g/dL Hct 37.5 (37.0-47.0) % MCV 93.5 (81-99) fl Plt Count 240 (130-400) 10^3/cmm Neut % (Auto) 74.5 % Neut # (Auto) 9.01 H (1.8-7.7) 10^3/uL BMP 02/02/23 11:40 Sodium 136 Potassium 4.1 Chloride 103 Carbon Dioxide 20 L BUN 6 Creatinine 0.5 Glucose 78 Calcium 8.7 Liver Function 02/02/23 Range/Units 11:40 Total Bilirubin 0.3 (0.15-1.2) mg/dL AST 25 (0-32) U/L ALT 24 (0-33) U/L Alkaline Phosphatase 144 H (35-105) U/L Albumin 3.4 L (3.5-5.2) g/dL Urine 02/02/23 Range/Units 11:40 Urine Color Yellow (Yellow) Urine Appearance Cloudy A (CLEAR) Urine pH 8 H (5-7) Ur Specific [place] 1.010 (1.005-1.030) Urine Protein 1+ H (Negative) Urine Glucose (UA) Norm (Normal) Urine Ketones Negative (Negative) Urine Nitrate Negative (Negative) Urine Bilirubin Neg (Negative) Ur Leukocyte Esterase Negative (Negative) Urine RBC 0-4 H (0-2) /hpf Urine WBC 0-4 H (0-5) /hpf Cardiac Studies: No Data to Display
--- NOTE | 2023-02-02 22:43 | ANES.PROC ---
Anesthesia Procedures Procedure/Date: 02/02/23 Epidural Bolus Procedure Narrative: Pt complaining of pressure in perineal area with contractions. Pt noted to be 7cm per RN. Pt given 8ml 1% Lidocaine MPF and 100mcg Fentanyl MPF via epidural. Increased rate from 10ml/hr to 13ml. Pt states pressure much improved. Will continue to monitor. Epidural: Time Out Performed: Yes Consents Signed: Procedure Consent and NPO Consent Consent: requested by attending/covering physician, from patient, risks and benefits reviewed, patient agrees to proceed and emergency procedure Lumbar Level: L3-L4 Epidural position: sitting Epidural procedure: sterile prep of area (betadine), 1% lidocaine to numb the area (3ml), 18 g needle, neg for paresthesia, test dose given, 1.5% xylocaine 1:200k epi (3ml/2ml), 0.2% Ropivacaine bolus ml (5ml), placed PCEA, no systemic response, sterile dressing applied, L.U.D. no apparent complications and 0.2% Ropiavacaine @ mls/hr (10ml/hr)
[2023-02-03] VITALS (342 sets, daily range): BP systolic 104–203; BP diastolic 56–110; PULSE 65–150; RESP 16; TEMP 36.7–37.4; O2SAT 71–100
[2023-02-03] MEDS: magnesium sulfate premix 20 GM/500 ML BAG IV ×3 (00:26→23:04)
[2023-02-03] MEDS: dextrose 5%-lactated ringers 1,000 ML 75 ML IV (02:54)
[2023-02-03] MEDS: acetaminophen 325 mg Tablet 650 MG PO ×2 (04:08→12:06)
[2023-02-03] MEDS: lidocaine 2% INJ 20 mL INJECTION (10:00)
--- NOTE | 2023-02-03 10:30 | PM.OPHPUD ---
Labor & Delivery H&P Update Date of Procedure: February 03, 2023 Date H&P Performed: 02/02/23 Admission Diagnosis: IUP at 37wks 2 days Preeclampsia Gestational diabetes mellitus Other information: This patient presented to clinic for routine OB follow-up. Her was complicated by gestational diabetes mellitus for which she was taking metformin, is also complicated by -induced hypertension which had not yet required antihypertensives. In clinic her blood pressure was found to be 220/120, repeat after resting was 180/110. Patient was sent over to labor and delivery for further management and induction. PIH labs confirmed preeclampsia with 1+ protein in the urine and protein creatinine ratio of 2.19. She was started on magnesium for seizure prophylaxis. Hypertensive protocol was initiated. Her cervix was not favorable so that induction was started using Cytotec.
--- NOTE | 2023-02-03 10:34 | P.PCNOB_ITS ---
Delivery Note: Date of delivery: February 03, 2023 Pre-delivery diagnoses: IUP at 37 weeks 2 days gestation Spontaneous rupture of membranes Preeclampsia with severe blood pressures Gestational diabetes mellitus on metformin Procedure: Normal spontaneous vaginal delivery Estimated blood loss (mL): 325 Pre-Delivery Course: The patient had routine care at [facility]. labs blood type A+ antibody negative, hepatitis B nonreactive, hepatitis C nonreactive, HIV nonreactive, rubella immune, RPR nonreactive, GC chlamydia negative, she failed her glucose tolerance test was diagnosed with gestational diabetes mellitus. Her sugars were controlled on 1000 mg of metformin ER. She was receiving twice weekly NSTs towards the end of the . During this time she had some transiently elevated blood pressures which seemed mostly related to anxiety. She was diagnosed with -induced hypertension but did not require antihypertensives. She did have weekly PIH labs. It was not until her 37-week appointment that she was diagnosed with preeclampsia and had severely elevated blood pressures. Delivery: This is a 22-year-old G1, P0 at 37 weeks 2 days gestation who is being induced secondary to SROM, preeclampsia and gestational diabetes mellitus. She was started on magnesium for seizure prophylaxis. She did have several severely elevated blood pressures and was treated with both labetalol and hydralazine. She did receive an epidural for pain management. She had a normal spontaneous vaginal delivery of a viable male infant weight 5 pounds 9 ounces Apgars of 4 and 8 over an intact perineum. The was suctioned at delivery and placed on mother's chest. The cord was clamped and cut. The infant was floppy and was taken immediately to the warmer. The placenta was delivered grossly intact and normal to inspection. The patient still had sensation to needles so 20 mL of 1% lidocaine was injected around the laceration sites for anesthetic. There were bilateral second-degree vaginal lacerations that were sutured using 0 chromic. Mother and were doing well after delivery. Coding Level of Care Code Acute Code for Chg Fwd Diagnoses
[2023-02-03] MEDS: ondansetron 2 mg/ML SDV 2 mL 4 MG IVP (10:56)
--- NOTE | 2023-02-03 14:52 | ANE.PACU2 ---
Inpatient post-anesthesia follow up: Airway intact: Yes Vital signs: Temperature 98.5 F Pulse Rate 96 Respiratory Rate 16 Blood Pressure 119/73 Pulse Oximetry 97 Oxygen Delivery Me thod Room Air Oxygen Flow Rate 10 Fraction of Inspir ed Oxygen Hydration adequate: Yes Nausea and vomiting: No Pain level: 2 Mental status: Baseline
[2023-02-03] MEDS: HYDROcodone-acetaminophen 5-325 mg Tablet PO (15:16)
[2023-02-03] MEDS: prenatal vitamin Capsule 1 CAP PO (15:17)
[2023-02-03] MEDS: ibuprofen 800 mg tablet PO ×2 (15:17→21:51)
[2023-02-03] MEDS: dextrose 5%-lactated ringers 1,000 ML 71 ML IV (15:19)
[2023-02-03] MEDS: docusate sodium 100 mg Capsule PO (18:20)
[2023-02-03 22:45] LABS: Hematocrit 32.9 % (37.0-47.0); Hemoglobin 10.9 g/dL (11.5-15.3); Mean Corpuscular HGB Conc 33.1 g/dL (30.0-36.0); Mean Corpuscular Hemoglobin 31.2 pg (28.0-34.0); Mean Corpuscular Volume 94.3 fl (81-99); Mean Platelet Volume 10.5 fL (7.4-10.4); Platelet Count 203 10^3/cmm (130-400); Red Blood Count 3.49 10^6/uL (4.1-5.3); Red Cell Distribution Width 14.2 % (12.1-15.1); White Blood Count 14.7 10^3/uL (4.0-10.0)
[2023-02-04] VITALS (160 sets, daily range): BP systolic 124–189; BP diastolic 63–100; PULSE 65–103; RESP 16; TEMP 35.6–36.3; O2SAT 90–99
[2023-02-04] MEDS: dextrose 5%-lactated ringers 1,000 ML 75 ML IV (03:25)
[2023-02-04] MEDS: acetaminophen 325 mg Tablet 650 MG PO (04:08)
[2023-02-04] MEDS: prenatal vitamin Capsule 1 CAP PO (09:31)
[2023-02-04] MEDS: docusate sodium 100 mg Capsule PO ×2 (09:31→17:05)
[2023-02-04] MEDS: ibuprofen 800 mg tablet PO ×2 (09:31→14:29)
[2023-02-04] MEDS: benzocaine-menthol 78 gm Canister 1 SPRAY TOPICAL (14:50)
[2023-02-04] MEDS: cetylpyridinium Lozenge 1 EACH MUCOUS MEM (14:54)
--- NOTE | 2023-02-04 14:58 | P.PN_ITS ---
Subjective Subjective: Some perineal discomfort, especially with coughing. States her bleeding is about like a period. Vitals/I&O/Wt Last Vital Signs Temp 96.6 F L 02/04/23 09:33 Pulse 81 02/04/23 12:15 Resp 16 02/04/23 09:40 BP 156/88 02/04/23 12:15 Pulse Ox 98 02/04/23 10:12 O2 Del Method Room Air 02/03/23 03:15 O2 Flow Rate 10 02/03/23 03:00 02/03/23 02/04/23 02/04/23 22:59 06:59 14:59 Intake Total 1887.483 / 2844.033 859.1 / 3703.133 Output Total 1440 / 2615 2265 / 4880 1055 / 1055 Balance 447.483 / 229.033 -1405.9 / -1176.867 -1055 / -1055 Physical Exam Narrative: Alert and oriented, walking around the room, heart regular rate and rhythm, lungs clear to auscultation bilaterally, abdomen is soft and nontender, fundus is firm, extremities have no edema and no calf tenderness Urinary Catheter Management: Lindo: Cath Placed During This Visit: yes, but has since been removed by the nurse Reason for Continuing Indwelling Catheter: Required Immobilization for Trauma or Surgery or Anesthesia Urinary Catheter Date of Insertion: 02/02/23 Urinary Catheter Time of Insertion: 18:25 Date Urinary Catheter Removed: 02/04/23 Time Urinary Catheter Discontinued: 10:38 Data 02/03/23 22:35 02/02/23 11:40 A&P Assessment and plan (1) (normal spontaneous vaginal delivery): Routine care (2) Pre-eclampsia: The patient has been diuresing well. Her magnesium was stopped around the 24- hour jeffry. Her blood pressures have been in the mild range and have not required antihypertensives after delivery. (3) Gestational diabetes mellitus (GDM): Discontinue metformin (4) Prolonged rupture of membranes, greater than 24 hours, delivered, current hospitalization: Attestations Medical Necessity Statement*: Routine care Coding Level of Care Code Acute Code for Chg Fwd Diagnoses (normal spontaneous vaginal delivery) O80 Pre-eclampsia O14.90 Gestational diabetes mellitus (GDM) O24.419 Prolonged rupture of membranes, greater than 24 hours, delivered, current hospitalization O42.10
--- NOTE | 2023-02-04 14:59 | PC.NURSE ---
Pt complaint of vaginal soreness while coughing, nurse provided pt with dermoplast and icepack and instructed pt on usage. Encouraged to use while up in bathroom, pt verbalized understanding.
[2023-02-05] VITALS (16 sets, daily range): BP systolic 133–180; BP diastolic 67–94; PULSE 65–114; TEMP 35.8
[2023-02-05] MEDS: NIFEdipine ER (24 hr) 30 mg Tablet PO ×2 (04:41→09:11)
[2023-02-05] MEDS: ibuprofen 800 mg tablet PO (09:11)
[2023-02-05] MEDS: docusate sodium 100 mg Capsule PO (09:11)
[2023-02-05] MEDS: prenatal vitamin Capsule 1 CAP PO (09:11)
--- NOTE | 2023-02-05 11:24 | PM.DCS ---
Discharge Providers Date of Admission: 02/02/23 11:21 Date of Discharge: February 05, 2023 Attending Provider at Admission: Sarah Ceballos MD Attending Provider at Discharge: Sarah Ceballos MD Primary Care Provider: Sarah Ceballos MD Diagnoses at Discharge Discharge Diagnosis (1) (normal spontaneous vaginal delivery): Status: Acute (2) Pre-eclampsia: Status: Acute (3) Gestational diabetes mellitus (GDM): Status: Acute (4) Prolonged rupture of membranes, greater than 24 hours, delivered, current hospitalization: Status: Acute Reason for Visit Reason for Visit: induction of labor Hospital Course Hospital Course This is a 22-year-old G1 now P1 who had a normal spontaneous vaginal delivery of a viable male . Mother was sent over due to preeclampsia with severely elevated blood pressures. She was placed on magnesium that was discontinued 24 hours after delivery. She was diuresing well. She had had gestational diabetes mellitus during the that was controlled on metformin ER 1000 mg. This was discontinued in the hospital. On day #2 she had 2 consecutive severely elevated blood pressures and was placed on Procardia XL 30 mg daily. She was ambulating, tolerating a regular diet, and was comfortable with discharge home. Physical Exam Narrative: Alert and oriented, resting in bed, heart regular rate and rhythm, lungs clear to auscultation bilaterally, abdomen is soft and nontender, fundus is firm, extremities have no calf tenderness and no edema. Urinary Catheter Management: Lindo: Cath Placed During This Visit: yes, but has since been removed by the nurse Reason for Continuing Indwelling Catheter: Required Immobilization for Trauma or Surgery or Anesthesia Urinary Catheter Date of Insertion: 02/02/23 Urinary Catheter Time of Insertion: 18:25 Date Urinary Catheter Removed: 02/04/23 Time Urinary Catheter Discontinued: 10:38 Discharge Data Studies Completed and Pending Laboratory Results WBC 14.7 10^3/uL (4.0-10.0) H 02/03/23 22:35 RBC 3.49 10^6/uL (4.1-5.3) L 02/03/23 22:35 Hgb 10.9 g/dL (11.5-15.3) L 02/03/23 22:35 Hct 32.9 % (37.0-47.0) L 02/03/23 22:35 MCV 94.3 fl (81-99) 02/03/23 22:35 MCH 31.2 pg (28.0-34.0) 02/03/23 22:35 MCHC 33.1 g/dL (30.0-36.0) 02/03/23 22:35 RDW 14.2 % (12.1-15.1) 02/03/23 22:35 Plt Count 203 10^3/cmm (130-400) 02/03/23 22:35 MPV 10.5 fL (7.4-10.4) H 02/03/23 22:35 Neut % (Auto) 74.5 % 02/02/23 11:40 Lymph % (Auto) 19.0 % 02/02/23 11:40 Branch % (Auto) 5.0 % 02/02/23 11:40 Eos % (Auto) 0.2 % 02/02/23 11:40 Baso % (Auto) 0.3 % 02/02/23 11:40 Neut # (Auto) 9.01 10^3/uL (1.8-7.7) H 02/02/23 11:40 Lymph # (Auto) 2.3 10^3/uL (0.8-4.8) 02/02/23 11:40 Branch # (Auto) 0.6 10^3/uL (0.2-0.9) 02/02/23 11:40 Eos # (Auto) 0.0 10^3/uL (0.0-0.8) 02/02/23 11:40 Baso # (Auto) 0.0 10^3/uL (0.0-0.1) 02/02/23 11:40 Nucleated RBC % (auto) 0 % 02/02/23 11:40 Nucleated RBCs # 0.0 /100WBC 02/02/23 11:40 Sodium 136 mmol/L (136-145) 02/02/23 11:40 Potassium 4.1 mmol/L (3.5-5.1) 02/02/23 11:40 Chloride 103 mmol/L (98-107) 02/02/23 11:40 Carbon Dioxide 20 mmol/L (22-29) L 02/02/23 11:40 Anion Gap 17.1 (5-19) 02/02/23 11:40 BUN 6 mg/dL (6-20) 02/02/23 11:40 Creatinine 0.5 mg/dL (0.5-0.9) 02/02/23 11:40 GFR Calculation 152.9 mL/min (90-130) H 02/02/23 11:40 Glucose 78 mg/dL (65-115) 02/02/23 11:40 POC Glucose 71 mg/dL (70-110) 02/02/23 16:13 Calculated Osmolality 278 mOsm/kg (285-295) L 02/02/23 11:40 Uric Acid 5.8 mg/dL (2.4-5.7) H 02/02/23 11:40 Calcium 8.7 mg/dL (8.5-10.5) 02/02/23 11:40 Magnesium 4.7 mg/dL (5.0-7.5) L* 02/02/23 20:05 Total Bilirubin 0.3 mg/dL (0.15-1.2) 02/02/23 11:40 AST 25 U/L (0-32) 02/02/23 11:40 ALT 24 U/L (0-33) 02/02/23 11:40 Alkaline Phosphatase 144 U/L (35-105) H 02/02/23 11:40 Total Protein 6.2 g/dL (6.6-8.7) L 02/02/23 11:40 Albumin 3.4 g/dL (3.5-5.2) L 02/02/23 11:40 Globulin 2.8 g/dL (1.3-4.6) 02/02/23 11:40 Insulin-like GF I Positive 02/02/23 11:53 Urine Color Yellow (Yellow) 02/02/23 11:40 Urine Appearance Cloudy (CLEAR) A 02/02/23 11:40 Urine pH 8 (5-7) H 02/02/23 11:40 Ur Specific Jenkins 1.010 (1.005-1.030) 02/02/23 11:40 Urine Protein 1+ (Negative) H 02/02/23 11:40 Urine Glucose (UA) Norm (Normal) 02/02/23 11:40 Urine Ketones Negative (Negative) 02/02/23 11:40 Urine Blood 3+ (Negative) H 02/02/23 11:40 Urine Nitrate Negative (Negative) 02/02/23 11:40 Urine Bilirubin Neg (Negative) 02/02/23 11:40 Urine Urobilinogen Norm mg/dL (Negative) 02/02/23 11:40 Ur Leukocyte Esterase Negative (Negative) 02/02/23 11:40 Urine RBC 0-4 /hpf (0-2) H 02/02/23 11:40 Urine WBC 0-4 /hpf (0-5) H 02/02/23 11:40 Ur Squamous Epith Cells 15-25 /hpf (0-5) H 02/02/23 11:40 Amorphous Sediment 2+ /hpf 02/02/23 11:40 Urine Bacteria Trace /hpf (NONE) 02/02/23 11:40 U Random Total Protein 46 mg/dL 02/02/23 11:40 Urine Creatinine 21 mg/dL (28-217) L 02/02/23 11:40 Protein/Creatinin Ratio 2.19 mg/mg CR 02/02/23 11:40 Urine Opiates Screen Negative ng/mL (Negative) 02/02/23 11:40 Ur Barbiturates Screen Negative ng/mL (Negative) 02/02/23 11:40 Ur Phencyclidine Scrn Negative ng/mL (Negative) 02/02/23 11:40 Ur Amphetamines Screen Negative ng/mL (Negative) 02/02/23 11:40 U Benzodiazepines Scrn Negative ng/mL (Negative) 02/02/23 11:40 Urine Cocaine Screen Negative ng/mL (Negative) 02/02/23 11:40 U Marijuana (THC) Screen Negative ng/mL (Negative) 02/02/23 11:40 Vitals Last Vital Signs Temp 96.1 F L 02/04/23 22:04 Pulse 66 02/05/23 07:20 Resp 16 02/04/23 16:28 BP 151/87 02/05/23 07:20 Pulse Ox 97 02/04/23 16:28 O2 Del Method Room Air 02/04/23 16:28 O2 Flow Rate 10 02/03/23 03:00 Discharge Plan Discharge Patient Disposition: Home Condition: Stable Prescriptions: New nifedipine 30 mg Tablet Extended Release 24hr 30 mg PO DAILY 30 Days Qty: 30 0RF Continued omeprazole 20 mg Capsule,Delayed Release(Dr/Ec) 20 mg PO DAILY PNV comb no.58-iron bisgly-FA 10-400 mg-mcg Capsule PO Discontinued metformin 750 mg Tablet Extended Release 24 Hr 750 mg PO DAILY Discharge Orders: Discharge Order (Routine); Ordered 02/05/23 Ordered By: Sarah Ceballos Referrals: Sarah Ceballos MD [Primary Care Provider] - 1-3 days ( Tuesday) Discharge Diet: Advance as tolerated and Low Salt Discharge Activity: Limit activity as instructed Patient Instructions: Depression (DC), Bleeding (DC), Preeclampsia and Eclampsia After Delivery (GEN), Hemorrhage (DC), OB Discharge Report, OB Food/Drug Interaction Guide, OB Care at Home, Opioid Safety, OB Home Care, OB Proud Parent Packet, OB Vaginal Deliveries Discharge Attestations Time Spent in Discharge Care*: less than 30 min Quality Metrics Clinical Quality Measures [ No reported AMI, CVA or VTE this stay] Coding Level of Care Code Acute Code for Chg Fwd Diagnoses (normal spontaneous vaginal delivery) O80 Pre-eclampsia O14.90 Gestational diabetes mellitus (GDM) O24.419 Prolonged rupture of membranes, greater than 24 hours, delivered, current hospitalization O42.10
== END 2023-02-05 15:15 | disposition home or self-care (01) | DRG 807 ==
LOC: OPOB 11:22 → OBGYN 11:22
PROVIDERS: Admitting Provider Family Medicine; PCP Family Medicine; Visit Provider Family Medicine
DX: O14.14 Severe pre-eclampsia complicating childbirth (principal); Z37.0 Single live birth; Z3A.37 37 weeks gestation of pregnancy; O24.425 Gestational diabetes mellitus in childbirth, controlled by oral hypoglycemic drugs; O70.1 Second degree perineal laceration during delivery; O42.12 Full-term premature rupture of membranes, onset of labor more than 24 hours following rupture
CPT/HCPCS: 36415; 36416; 51702; 59025; 59409; 80053; 80306; 81001; 82570; 82962; 83735; 84112; 84156; 84550; 85025; 85027; 96374; 96376; 98960; 99211; J2405; J2795; J3010; J3475; J3490; J7040; J7120; J7121

== ENCOUNTER 2023-02-20 13:44 | Emergency (ER) | payer OTHER, MEDICAID, SELFPAY ==
[2023-02-20 13:50] VITALS: BP 128/80; PULSE 84; RESP 12; TEMP 36.7; O2SAT 98; BMI 35.4
--- NOTE | 2023-02-20 13:58 | XRR_ITS ---
PROCEDURE INFORMATION: Exam: XR Left Hip Exam date and time: 02/20/2023 2:03 PM Age: 22 years old Clinical indication: Hip pain; Left hip; Additional info: Lt hip pain TECHNIQUE: Imaging protocol: Radiologic exam of the left hip. Views: 2 or 3 views hip with pelvis when performed. COMPARISON: US OB >= 14 weeks fetus [id number] 10/06/2022 8:14 AM FINDINGS: Bones/joints: Unremarkable. No acute fracture. Soft tissues: Unremarkable. XR/XR hip LT 2-3V wo/w pel* [id number] IMPRESSION: No acute findings.
--- NOTE | 2023-02-20 13:59 | W.ED.EXTPRO ---
HPI - Extremity Problem General: Chief complaint: Extremity Injury, Lower Stated complaint: left hip pain Time Seen by Provider: 02/20/23 13:55 Source: patient Mode of arrival: ambulatory Limitations: no limitations History of Present Illness: 22-year-old female presents to the ER today for left hip pain for the last 1 to 2 weeks. Patient reports she is 2 weeks status post vaginal delivery. She reports the pain started after delivery and she thought maybe it was muscle pain that would improve however it is not getting better. Patient reports the pain is actually worsening. She reports it is worse with standing and walking. She gets relief when laying on her back. She is taking ibuprofen and Tylenol with minimal improvement. Denies any hip issues or prior hip injuries. Patient does report pushing for quite some time and being in the lithotomy position for an extended period of time. Review of Systems General: Reports: 10 or more systems reviewed and unremarkable except in HPI and below PFSH ED PFSH: Medical History No pertinent family history No pertinent past medical history Physical Exam Const: COMMON NORMALS: no acute distress, average body habitus, patient oriented x3, no limitations, healthy appearing, alert and well nourished Resp: COMMON NORMALS: normal respiratory effort EFFORT & INSPECTION: Yes able to speak in complete sentences Cardio: COMMON NORMALS: regular rate, regular rhythm and No murmurs present (Cardio) RATE: regular rate RHYTHM: regular rhythm GI: COMMON NORMALS: Normal to inspection, nondistended, normoactive bowel sounds present Extremity: NARRATIVE EXTREMITY EXAM: Patient has a normal gait however pain reported with flexion and external rotation of the left hip. Minimal tenderness to palpation. Neuro: COMMON NORMALS: patient oriented x3 SENSORIUM/ORIENTATION: Yes alert Psych: COMMON NORMALS: mental status grossly normal, Normal thought process present and cooperative THOUGHT PROCESS: Normal thought process present Skin: COMMON NORMALS: no rashes or lesions noted and no wounds GENERAL SKIN EXAM: no rashes or lesions noted Course ED course: Patient has 2 weeks of worsening left hip pain after vaginal delivery. No prior hip issues or known injuries. We will start with an x-ray to make sure the hip joint itself looks okay. I suspect muscle strain given prolonged positioning in the lithotomy position. Patient is taking anti-inflammatories and Tylenol at home. Patient is breast-feeding. Vital Signs: Vital signs: Vital Signs Temperature 98.0 F 02/20/23 13:50 Pulse Rate 84 02/20/23 13:50 Respiratory Rate 12 02/20/23 13:50 Blood Pressure 128/80 02/20/23 13:50 Pulse Oximetry 98 02/20/23 13:50 Oxygen Delivery Me thod Room Air 02/20/23 13:50 MDM - Extremity (Nontraumatic) Medical Decision Making Imaging of the left hip is unremarkable. I suspect this is a muscle strain or tendon strain from recent delivery and hormone shifts. I recommended anti-inflammatories and topical muscle rub. If pain not improving in the next 5 to 7 days, follow-up with PCP. Return to the ER with new or worsening symptoms. Patient verbalized understanding and was in agreement with the treatment plan. Lab Data Radiology Impressions Hip/Pelvis X-Ray 02/20/23 13:58 IMPRESSION: No acute findings. Critical Care Time Critical Care Time: Critical Care Time: No Discharge Plan Discharge Patient Disposition: Home Clinical Impression: Acute hip pain Qualifiers: Laterality: left Qualified Code(s): M25.552 - Pain in left hip Condition: Stable Prescriptions: No Action omeprazole 20 mg Capsule,Delayed Release(Dr/Ec) 20 mg PO DAILY PNV comb no.58-iron bisgly-FA 10-400 mg-mcg Capsule PO nifedipine 30 mg Tablet Extended Release 24hr 30 mg PO DAILY 30 Days Qty: 30 0RF Discharge Orders: Discharge ED (Routine); Ordered 02/20/23 Ordered By: Richelle Florian Referrals: Sarah Ceballos MD [Primary Care Provider] - Discharge Diet: Usual diet Discharge Activity: Resume usual activity Patient Instructions: Opioid Safety, Pain Management Activity Restrictions/Additional Instructions: Continue [id number] medications such as Tylenol and ibuprofen for pain. Topical muscle rub or anti-inflammatory recommended. Follow-up with PCP in 5 to 7 days if no improvement. Return to the ER with new or worsening symptoms. Coding Level of Care Code ED Sql Server Developer for Ben Newby
== END 2023-02-20 14:48 | disposition home or self-care (01) ==
PROVIDERS: Emergency Provider Physician Assistant; PCP Family Medicine
DX: O99.893 Other specified diseases and conditions complicating puerperium (principal)
CPT/HCPCS: 73502; 99283

== ENCOUNTER 2023-03-28 10:33 | Emergency (ER) | payer OTHER, MEDICAID, SELFPAY ==
[2023-03-28 11:11] VITALS: BMI 29.9
[2023-03-28 11:18] VITALS: BP 86/49; PULSE 96; RESP 18; TEMP 36.5; O2SAT 97
[2023-03-28 11:23] LABS: Basophils % 0.3 %; Eosinophils # 0.3 10^3/uL (0.0-0.8); Eosinophils % 4.4 %; Hemoglobin 11.6 g/dL (11.5-15.3); Lymphocytes # 1.5 10^3/uL (0.8-4.8); Lymphocytes % 24.3 %; Mean Corpuscular HGB Conc 32.2 g/dL (30.0-36.0); Mean Corpuscular Hemoglobin 29.4 pg (28.0-34.0); Mean Corpuscular Volume 91.1 fl (81-99); Mean Platelet Volume 10.1 fL (7.4-10.4); Monocytes # 0.6 10^3/uL (0.2-0.9); Monocytes % 9.6 %; Neutrophils # 3.88 10^3/uL (1.8-7.7); Neutrophils % 61.2 %; Nucleated Red Blood Cells % 0 %; Platelet Count 284 10^3/cmm (130-400); Red Blood Count 3.95 10^6/uL (4.1-5.3); Red Cell Distribution Width 12.6 % (12.1-15.1); White Blood Count 6.3 10^3/uL (4.0-10.0)
[2023-03-28 11:31] LABS: Alanine Aminotransferase 31 U/L (0-33); Albumin Level 3.4 g/dL (3.5-5.2); Alkaline Phosphatase 63 U/L (35-105); Anion Gap 22.2 (5-19); Aspartate Amino Transferase 31 U/L (0-32); Blood Urea Nitrogen 7 mg/dL (6-20); Calcium 11.1 mg/dL (8.5-10.5); Carbon Dioxide 22 mmol/L (22-29); Chloride 95 mmol/L (98-107); Globulin 3.1 g/dL (1.3-4.6); Glomerular Filtration Rate 88.9 mL/min (90-130); Glucose 68 mg/dL (65-115); Osmolality Calculated 276 mOsm/kg (285-295); Potassium 4.2 mmol/L (3.5-5.1); Sodium 135 mmol/L (136-145); Total Bilirubin 0.5 mg/dL (0.15-1.2); Total Protein 6.5 g/dL (6.6-8.7)
--- NOTE | 2023-03-28 11:43 | PC.PHAR ---
EXT MED HISTORY SHOWS NIFEDIPINE ER 30MG DAILY FILLED 02/08/23 30D/S PT STATES NOT TAKING AND NOT TAKING METFORMIN ER 750MG DAILY FILLED 01/09/23 30D/S SINCE HAVING HER BABY-
[2023-03-28 11:48] VITALS: PULSE 82; O2SAT 98
--- NOTE | 2023-03-28 11:52 | ED_ITS ---
HPI - Nausea/Vomiting/Diarrhea General: Chief complaint: Nausea/Vomiting/Diarrhea Stated complaint: N/V, WEAKNESS Time Seen by Provider: 03/28/23 10:35 Source: patient Mode of arrival: ambulatory History of Present Illness: 22-year-old female presents to the emergency room with complaints of nausea vomiting for the last month or slightly longer. She has been seen locally at a walk-in clinic and given ondansetron and subsequently was also seen at [facility] in [place] where she was hospitalized for 4 days she states she was told she had hyperthyroidism and an inflammation she initially told me she thought her appendix was inflamed but they did not do surgery. She denies any dysuria urgency or frequency no constipation is referred most of abdominal pain is suprapubic region. No flank pain no hematuria no hematochezia melena hematemesis coffee-ground emesis. MD elicited complaint: nausea and vomiting Onset (ago): week(s) Description of vomiting: food contents and watery Associated nausea: Yes Associated abdominal pain: Yes Location of pain: Diffuse Pain consistency: intermittent Severity: mild Quality: cramping Exacerbating factors: none Relieving factors: none Associated symtoms: Reports nausea; Denies altered mental status, anxiety, bloating, change in vision, chest pain, cough, diaphoresis, decreased urine output, dizziness, dysuria, epistaxis, fatigue, fecal incontinence, fevers/chills, headache(s), anorexia, malaise, myalgias, numbness, palpitations, rash, short of breath, syncope, tenesmus, tinnitus or weakness Review of Systems Const: Denies: fever(s), chills, fatigue, malaise or diaphoresis Eyes: Denies: change in vision ENMT: Denies: tinnitus or epistaxis Card: Denies: chest pain, palpitations or syncope Resp: Denies: dyspnea, productive cough or non-productive cough GI: Reports: abdominal pain, nausea and vomiting; Denies: bloating or fecal incontinence : Denies: dysuria, urinary frequency or urinary urgency Skin/Breast: Denies: rash or pruritus Neuro: Denies: headache(s) or dizziness Psych: Denies: anxiety PFSH ED PFSH: Medical History (Updated 03/29/23 @ 06:49 by Jhon Condon DO) No pertinent family history No pertinent past medical history Post thyroiditis Prolonged rupture of membranes, greater than 24 hours, delivered, current hospitalization Physical Exam Const: EXAM LIMITATIONS: no altered mental status GENERAL APPEARANCE: co operative and comfortable ORIENTATION/CONSCIOUSNESS: Yes awake, Yes oriented to person, Yes oriented to place and Yes oriented to time HENMT: COMMON NORMALS: normocephalic, atraumatic and hearing grossly normal bilaterally HEAD & SCALP: normocephalic and atraumatic Resp: COMMON NORMALS: normal respiratory effort, No retractions, No use of accessory muscles and clear to auscultation bilaterally AUSCULTATION: clear to auscultation bilaterally Cardio: COMMON NORMALS: regular rate, regular rhythm and No murmurs present (Cardio) RATE: regular rate RHYTHM: regular rhythm GI: COMMON NORMALS: Soft to palpation and No hepatosplenomegaly present AUSCULTATION: Yes normoactive bowel sounds PALPATION: Yes Soft to palpation, No Tenderness to palpation present (GI), No Guarding due to palpation present (GI) and Yes No hepatosplenomegaly present Extremity: COMMON NORMALS: normal to inspection, capillary refill normal, no clubbing, cyanosis or edema, no calf tenderness and no pedal edema Neuro: SENSORIUM/ORIENTATION: Yes oriented to person, Yes oriented to place and Yes oriented to time Skin: COMMON NORMALS: no rashes or lesions noted GENERAL SKIN EXAM: no rashes or lesions noted Course Vital Signs: Vital signs: Vital Signs Temperature 97.7 F 03/28/23 11:18 Pulse Rate 84 03/28/23 16:29 Respiratory Rate 18 03/28/23 11:18 Blood Pressure 115/64 03/28/23 16:29 Pulse Oximetry 94 03/28/23 16:29 Oxygen Delivery Me thod Room Air 03/28/23 11:18 MDM - Nausea/Vomiting/Diarrhea Medical Decision Making Records received from [place]. Patient had epiploic appendicitis which did not require any surgical intervention intervention. She also had a thyroiditis she was started on PTU and propranolol. She had a mild starvation ketosis and mild acute kidney injury due to dehydration all of which were treated while she was hospitalized she also had some hypercalcemia related to her thyroiditis. She has not had follow-up with endocrinology. Her anion gap today is slightly elevated she is given 2 L of fluid and BMP was rechecked. Increase methimazole to 15 mg 3 times daily continue propranolol. Start Macrobid for cystitis follow-up with endocrinology as symptoms were able to arrange. Order sent to case management. Medical Records I reviewed the patient's medical records. Lab Data I reviewed the patient's lab results. 03/28/23 10:51 03/28/23 14:18 Laboratory Results WBC 6.3 10^3/uL (4.0-10.0) 03/28/23 10:51 RBC 3.95 10^6/uL (4.1-5.3) L 03/28/23 10:51 Hgb 11.6 g/dL (11.5-15.3) 03/28/23 10:51 Hct 36.0 % (37.0-47.0) L 03/28/23 10:51 MCV 91.1 fl (81-99) 03/28/23 10:51 MCH 29.4 pg (28.0-34.0) 03/28/23 10:51 MCHC 32.2 g/dL (30.0-36.0) 03/28/23 10:51 RDW 12.6 % (12.1-15.1) 03/28/23 10:51 Plt Count 284 10^3/cmm (130-400) 03/28/23 10:51 MPV 10.1 fL (7.4-10.4) 03/28/23 10:51 Neut % (Auto) 61.2 % 03/28/23 10:51 Lymph % (Auto) 24.3 % 03/28/23 10:51 Prentiss % (Auto) 9.6 % 03/28/23 10:51 Eos % (Auto) 4.4 % 03/28/23 10:51 Baso % (Auto) 0.3 % 03/28/23 10:51 Neut # (Auto) 3.88 10^3/uL (1.8-7.7) 03/28/23 10:51 Lymph # (Auto) 1.5 10^3/uL (0.8-4.8) 03/28/23 10:51 Prentiss # (Auto) 0.6 10^3/uL (0.2-0.9) 03/28/23 10:51 Eos # (Auto) 0.3 10^3/uL (0.0-0.8) 03/28/23 10:51 Baso # (Auto) 0.0 10^3/uL (0.0-0.1) 03/28/23 10:51 Nucleated RBC % (auto) 0 % 03/28/23 10:51 Nucleated RBCs # 0.0 /100WBC 03/28/23 10:51 Sodium 134 mmol/L (136-145) L 03/28/23 14:18 Potassium 3.9 mmol/L (3.5-5.1) 03/28/23 14:18 Chloride 100 mmol/L (98-107) 03/28/23 14:18 Carbon Dioxide 20 mmol/L (22-29) L 03/28/23 14:18 Anion Gap 17.9 (5-19) 03/28/23 14:18 BUN 7 mg/dL (6-20) 03/28/23 14:18 Creatinine 0.6 mg/dL (0.5-0.9) 03/28/23 14:18 GFR Calculation 123.9 mL/min (90-130) 03/28/23 14:18 Glucose 62 mg/dL (65-115) L 03/28/23 14:18 Calculated Osmolality 274 mOsm/kg (285-295) L 03/28/23 14:18 Calcium 9.7 mg/dL (8.5-10.5) 03/28/23 14:18 Total Bilirubin 0.5 mg/dL (0.15-1.2) 03/28/23 10:51 AST 31 U/L (0-32) 03/28/23 10:51 ALT 31 U/L (0-33) 03/28/23 10:51 Alkaline Phosphatase 63 U/L (35-105) 03/28/23 10:51 Total Protein 6.5 g/dL (6.6-8.7) L 03/28/23 10:51 Albumin 3.4 g/dL (3.5-5.2) L 03/28/23 10:51 Globulin 3.1 g/dL (1.3-4.6) 03/28/23 10:51 Lipase 16 U/L (13-60) 03/28/23 14:18 TSH 0.01 uIU/mL (0.27-4.20) L 03/28/23 14:18 Urine Color Yellow (Yellow) 03/28/23 13:20 Urine Appearance Sl hazy (CLEAR) A 03/28/23 13:20 Urine pH 5 (5-7) 03/28/23 13:20 Ur Specific [place] 1.030 (1.005-1.030) 03/28/23 13:20 Urine Protein Trace (Negative) 03/28/23 13:20 Urine Glucose (UA) Norm (Normal) 03/28/23 13:20 Urine Ketones 3+ (Negative) H 03/28/23 13:20 Urine Blood Neg (Negative) 03/28/23 13:20 Urine Nitrate Negative (Negative) 03/28/23 13:20 Urine Bilirubin 1+ (Negative) H 03/28/23 13:20 Urine Urobilinogen Norm mg/dL (Negative) 03/28/23 13:20 Ur Leukocyte Esterase 1+ (Negative) H 03/28/23 13:20 Urine RBC None /hpf (0-2) 03/28/23 13:20 Urine WBC 15-25 /hpf (0-5) H 03/28/23 13:20 Ur Squamous Epith Cells 5-10 /hpf (0-5) H 03/28/23 13:20 Amorphous Sediment Not Reportable 03/28/23 13:20 Urine Bacteria 1+ /hpf (NONE) H 03/28/23 13:20 Hyaline Casts 0-4 /lpf H 03/28/23 13:20 Urine Mucus Trace /hpf 03/28/23 13:20 Serum Ketones Negative (Negative) 03/28/23 10:51 Discharge Plan Discharge Patient Disposition: Home Clinical Impression: Post thyroiditis, Cystitis Condition: Stable Prescriptions: New methimazole 5 mg tablet 15 mg PO TID Qty: 90 0RF promethazine 25 mg tablet 25 mg PO Q6H PRN (Reason: nausea and vomiting) Qty: 20 0RF Macrobid 100 mg capsule 100 mg PO BID 7 Days Qty: 14 0RF Rx Instructions: must administer with a meal/food No Action loperamide 2 mg capsule 4 mg PO TID PRN (Reason: Diarrhea) Tylenol Ex Str Rapid Release 500 mg Tablet 1,000 mg PO Q6H PRN (Reason: Pain) methimazole 10 mg tablet 30 mg PO QAM propranolol 20 mg tablet 20 mg PO TID ondansetron 4 mg tablet,disintegrating 4 mg PO TID PRN (Reason: Nausea And Vomiting) Discharge Orders: Discharge ED (Routine); Ordered 03/28/23 Ordered By: Jhon Condon Discharge Diet: Clear Liquid Discharge Activity: Increase activity as tolerated Patient Instructions: Opioid Safety, Pain Management Activity Restrictions/Additional Instructions: You were seen today with persistent nausea vomiting and thyroiditis. Recommend that you increase your methimazole to 15 mg 3 times a day. Case management will make an appointment for endocrinology with you within the next week. Return if you have further problems. You can use Phenergan for nausea or vomiting in place of ondansetron if needed. Continue taking your other prescription medications. Additionally you were noted to have a mild bladder infection for which you were given antibiotics for. Coding Level of Care Code ED Manual Arts Teacher for Ben Newby
[2023-03-28] MEDS: ondansetron 2 mg/ML SDV 2 mL 4 MG IVP (11:56)
[2023-03-28] MEDS: sodium chloride 0.9% 1,000 ML 999 ML IV ×2 (11:56→12:21)
[2023-03-28 13:18] VITALS: BP 118/64; PULSE 90; O2SAT 94
[2023-03-28 13:44] LABS: Add Urine Microscopic? YES; Bilirubin Urine 1+ (Negative); Blood Urine Neg (Negative); Glucose Urine UA Norm (Normal); Ketones Urine 3+ (Negative); Leukocyte Esterase Urine 1+ (Negative); Nitrate Urine Negative (Negative); Protein Urine Trace (Negative); Urine Appearance SL Hazy (CLEAR); Urine Color Yellow (Yellow); Urobilinogen Urine Norm (Negative); pH Urine 5 (5-7)
[2023-03-28 13:45] LABS: Add Urine Culture? Yes; Bacteria Urine 1+ /hpf; Hyaline Casts Urine 0-4 /lpf; Mucus Urine TRACE /hpf; WBC Urine 15-25 /hpf (0-5)
[2023-03-28 13:58] LABS: Ketone (Acetest) Serum Negative (Negative)
[2023-03-28] MEDS: cefTRIAXone 1,000 MG in sodium chloride 0.9% (plus) 50 ML 100 MG IV (14:20)
[2023-03-28 15:00] VITALS: BP 115/69; PULSE 89; O2SAT 97
[2023-03-28 15:00] LABS: Anion Gap 17.9 (5-19); Blood Urea Nitrogen 7 mg/dL (6-20); Calcium 9.7 mg/dL (8.5-10.5); Carbon Dioxide 20 mmol/L (22-29); Chloride 100 mmol/L (98-107); Glomerular Filtration Rate 123.9 mL/min (90-130); Glucose 62 mg/dL (65-115); Osmolality Calculated 274 mOsm/kg (285-295); Potassium 3.9 mmol/L (3.5-5.1); Sodium 134 mmol/L (136-145); Thyroid Stimulating Hormone 0.01 uIU/mL (0.27-4.20)
[2023-03-28 16:29] VITALS: BP 115/64; PULSE 84; O2SAT 94
[2023-03-28 16:43] LABS: Lipase 16 U/L (13-60)
--- NOTE | 2023-03-29 09:52 | DCPLANNER ---
Addendum entered by Yris Wang 04/28/23 10:27: Patient attended follow up appointment at endocrinology Addendum entered by Yris Wang 04/05/23 13:59: Patient has a follow up appointment scheduled for Thursday, April 27, 2023 at 9:[address] Eller at endocrinology. Original Note: transport manager had message to schedule a follow up appointment for patient with endocrinology. transport manager sent patients information to the front office staff a endocrinology. Patients information will be printed and reviewed. Clinic will call patient with appointment information.
--- NOTE | 2023-03-29 11:13 | DCPLANNER ---
weatherization operations manager called patient due to no primary care physician - no answer at this time.
== END 2023-03-28 16:32 | disposition home or self-care (01) ==
PROVIDERS: Emergency Provider Family Medicine
DX: O90.5 Postpartum thyroiditis (principal); N30.90 Cystitis, unspecified without hematuria
CPT/HCPCS: 36415; 80048; 80053; 81001; 82009; 83690; 84443; 85025; 87086; 96361; 96365; 96366; 96375; 99284; J0696; J2405; J7030

== ENCOUNTER 2023-04-04 17:48 | Inpatient (IN) | payer OTHER, MEDICAID, SELFPAY ==
[2023-04-04 18:00] VITALS: BP 83/59; PULSE 105; RESP 16; TEMP 36.4; O2SAT 97; BMI 28.3
[2023-04-04 18:32] LABS: Basophils % 0.5 %; Eosinophils # 0.3 10^3/uL (0.0-0.8); Eosinophils % 4.6 %; Hematocrit 39.4 % (37.0-47.0); Lymphocytes # 1.3 10^3/uL (0.8-4.8); Lymphocytes % 17.8 %; Mean Corpuscular Volume 87.8 fl (81-99); Mean Platelet Volume 10.4 fL (7.4-10.4); Monocytes # 0.6 10^3/uL (0.2-0.9); Monocytes % 7.9 %; Neutrophils # 5.05 10^3/uL (1.8-7.7); Neutrophils % 68.9 %; Nucleated Red Blood Cells % 0 %; Platelet Count 311 10^3/cmm (130-400); Red Blood Count 4.49 10^6/uL (4.1-5.3); White Blood Count 7.3 10^3/uL (4.0-10.0)
[2023-04-04 18:53] LABS: HCG, Serum Qual Negative (Negative)
[2023-04-04 19:00] LABS: Alanine Aminotransferase 52 U/L (0-33); Albumin Level 4.2 g/dL (3.5-5.2); Alkaline Phosphatase 99 U/L (35-105); Anion Gap 16.3 (5-19); Aspartate Amino Transferase 54 U/L (0-32); Blood Urea Nitrogen 22 mg/dL (6-20); Carbon Dioxide 22 mmol/L (22-29); Chloride 98 mmol/L (98-107); Globulin 2.6 g/dL (1.3-4.6); Glomerular Filtration Rate 61.6 mL/min (90-130); Glucose 95 mg/dL (65-115); Magnesium 1.8 mg/dL (1.7-2.3); Osmolality Calculated 277 mOsm/kg (285-295); Potassium 4.3 mmol/L (3.5-5.1); Sodium 132 mmol/L (136-145); Total Bilirubin 0.4 mg/dL (0.15-1.2); Total Protein 6.8 g/dL (6.6-8.7)
[2023-04-04 19:02] LABS: Lactic Sepsis W/Reflex 1.5 mmol/L (0.5-2.2)
[2023-04-04 19:18] LABS: Calcium 15.5 mg/dL (8.5-10.5)
--- NOTE | 2023-04-04 20:23 | ED_ITS ---
HPI - Nausea/Vomiting/Diarrhea General: Chief complaint: Nausea/Vomiting/Diarrhea Stated complaint: N/V Not able to eat solid foods Time Seen by Provider: 04/04/23 20:03 Source: patient Mode of arrival: ambulatory Limitations: no limitations History of Present Illness: 22-year-old female who states she has been having vomiting for quite some time states she has been seen by multiple physicians they are unsure the cause. She states that she had worse vomiting over the last 2 to 3 days but not able to tolerate any fluids and feels very dehydrated. She denies any abdominal pain denies any fevers. Associated nausea: Yes Associated symtoms: Reports nausea; Denies chest pain, dysuria or headache(s) Review of Systems Const: Denies: fever(s), chills, body aches or change in appetite Eyes: Denies: blurry vision or eye discomfort ENMT: Denies: throat pain or dental pain Card: Denies: chest pain Resp: Denies: dyspnea GI: Reports: nausea and vomiting; Denies: abdominal pain or diarrhea : Denies: dysuria Musc: Denies: neck pain or back pain Skin/Breast: Denies: rash Neuro: Denies: headache(s) PFSH ED PFSH: Medical History No pertinent family history No pertinent past medical history Post thyroiditis Prolonged rupture of membranes, greater than 24 hours, delivered, current hospitalization Physical Exam Const: COMMON NORMALS: no acute distress, patient oriented x3 and healthy appearing HENMT: COMMON NORMALS: normocephalic and atraumatic HEAD & SCALP: normocephalic and atraumatic Eye: COMMON NORMALS: Equal, round and reactive pupils present and EOMs intact bilaterally PUPIL: Yes Equal, round and reactive pupils present Neck/C-Spine: COMMON NORMALS: full ROM and supple Chest: COMMONS NORMALS: normal inspection of the chest and normal palpation of entire chest wall Resp: COMMON NORMALS: normal respiratory effort, No retractions, No use of accessory muscles and clear to auscultation bilaterally AUSCULTATION: clear to auscultation bilaterally Cardio: COMMON NORMALS: regular rate, regular rhythm and No murmurs present (Cardio) RATE: regular rate RHYTHM: regular rhythm GI: COMMON NORMALS: Normal to inspection, nondistended, normoactive bowel sounds present, Soft to palpation, non-tender and no masses PALPATION: Yes Soft to palpation Extremity: COMMON NORMALS: normal to inspection and full ROM Neuro: COMMON NORMALS: patient oriented x3, moves all extremities and no focal motor deficits Psych: COMMON NORMALS: mental status grossly normal, Normal thought process present and cooperative THOUGHT PROCESS: Normal thought process present Skin: COMMON NORMALS: no rashes or lesions noted and no wounds GENERAL SKIN EXAM: no rashes or lesions noted Course Vital Signs: Vital signs: Vital Signs Temperature 97.6 F 04/04/23 18:00 Pulse Rate 95 04/04/23 21:33 Respiratory Rate 18 04/04/23 21:33 Blood Pressure 118/63 04/04/23 21:33 Pulse Oximetry 100 04/04/23 21:33 Oxygen Delivery Me thod Room Air 04/04/23 21:33 MDM - Nausea/Vomiting/Diarrhea Medical Decision Making Patient presents here with vomiting along with hypercalcemia is likely due to dehydration from vomiting. Did give her IV fluids along with Reglan Benadryl I spoke to hospitalist and will admit for observation. Medical Records I reviewed the patient's medical records. Lab Data I reviewed the patient's lab results. 04/04/23 18:22 04/04/23 18:22 Laboratory Results WBC 7.3 10^3/uL (4.0-10.0) 04/04/23 18: RBC 4.49 10^6/uL (4.1-5.3) 04/04/23 18: Hgb 13.0 g/dL (11.5-15.3) 04/04/23 18: Hct 39.4 % (37.0-47.0) 04/04/23 18: MCV 87.8 fl (81-99) 04/04/23 18: MCH 29.0 pg (28.0-34.0) 04/04/23 18: MCHC 33.0 g/dL (30.0-36.0) 04/04/23 18: RDW 13.0 % (12.1-15.1) 04/04/23 18:22 Plt Count 311 10^3/cmm (130-400) 04/04/23 18:22 MPV 10.4 fL (7.4-10.4) 04/04/23 18:22 Neut % (Auto) 68.9 % 04/04/23 18:22 Lymph % (Auto) 17.8 % 04/04/23 18:22 [place] % (Auto) 7.9 % 04/04/23 18:22 Eos % (Auto) 4.6 % 04/04/23 18:22 Baso % (Auto) 0.5 % 04/04/23 18:22 Neut # (Auto) 5.05 10^3/uL (1.8-7.7) 04/04/23 18:22 Lymph # (Auto) 1.3 10^3/uL (0.8-4.8) 04/04/23 18:22 [place] # (Auto) 0.6 10^3/uL (0.2-0.9) 04/04/23 18:22 Eos # (Auto) 0.3 10^3/uL (0.0-0.8) 04/04/23 18:22 Baso # (Auto) 0.0 10^3/uL (0.0-0.1) 04/04/23 18:22 Nucleated RBC % (auto) 0 % 04/04/23 18:22 Nucleated RBCs # 0.0 /100WBC 04/04/23 18:22 Sodium 132 mmol/L (136-145) L 04/04/23 18:22 Potassium 4.3 mmol/L (3.5-5.1) 04/04/23 18:22 Chloride 98 mmol/L (98-107) 04/04/23 18:22 Carbon Dioxide 22 mmol/L (22-29) 04/04/23 18:22 Anion Gap 16.3 (5-19) 04/04/23 18:22 BUN 22 mg/dL (6-20) H 04/04/23 18:22 Creatinine 1.1 mg/dL (0.5-0.9) H 04/04/23 18:22 GFR Calculation 61.6 mL/min (90-130) L 04/04/23 18:22 Glucose 95 mg/dL (65-115) 04/04/23 18:22 Calculated Osmolality 277 mOsm/kg (285-295) L 04/04/23 18:22 Lactic Acid 1.5 mmol/L (0.5-2.2) 04/04/23 18:22 Calcium 14.9 mg/dL (8.5-10.5) H* 04/04/23 20:00 Magnesium 1.8 mg/dL (1.7-2.3) 04/04/23 18:22 Total Bilirubin 0.4 mg/dL (0.15-1.2) 04/04/23 18:22 AST 54 U/L (0-32) H 04/04/23 18:22 ALT 52 U/L (0-33) H 04/04/23 18:22 Alkaline Phosphatase 99 U/L (35-105) 04/04/23 18:22 Total Protein 6.8 g/dL (6.6-8.7) 04/04/23 18: Albumin 4.2 g/dL (3.5-5.2) 04/04/23 18:22 Globulin 2.6 g/dL (1.3-4.6) 04/04/23 18:22 HCG, Qual Negative (Negative) 04/04/23 18:22 Urine Color Smita (Yellow) 04/04/23 20:52 Urine Appearance Sl hazy (CLEAR) A 04/04/23 20:52 Urine pH 5 (5-7) 04/04/23 20:52 Ur Specific [place] 1.030 (1.005-1.030) 04/04/23 20:52 Urine Protein Trace (Negative) 04/04/23 20:52 Urine Glucose (UA) Norm (Normal) 04/04/23 20:52 Urine Ketones 1+ (Negative) H 04/04/23 20:52 Urine Blood Neg (Negative) 04/04/23 20:52 Urine Nitrate Negative (Negative) 04/04/23 20:52 Urine Bilirubin Neg (Negative) 04/04/23 20:52 Urine Urobilinogen Neg mg/dL (Negative) 04/04/23 20:52 Ur Leukocyte Esterase Trace (Negative) H 04/04/23 20:52 Urine RBC None /hpf (0-2) 04/04/23 20:52 Urine WBC 5-10 /hpf (0-5) H 04/04/23 20:52 Ur Squamous Epith Cells 10-15 /hpf (0-5) H 04/04/23 20:52 Ur Transition Epith Cell 0-4 /hpf 04/04/23 20:52 Amorphous Sediment 2+ /hpf 04/04/23 20:52 Urine Bacteria 2+ /hpf (NONE) H 04/04/23 20:52 Urine Mucus 1+ /hpf 04/04/23 20:52 Discharge Plan Discharge Condition: Stable Prescriptions: No Action loperamide 2 mg capsule 4 mg PO TID PRN (Reason: Diarrhea) Tylenol Ex Str Rapid Release 500 mg Tablet 1,000 mg PO Q6H PRN (Reason: Pain) methimazole 10 mg tablet 30 mg PO QAM propranolol 20 mg tablet 20 mg PO TID ondansetron 4 mg tablet,disintegrating 4 mg PO TID PRN (Reason: Nausea And Vomiting) methimazole 5 mg tablet 15 mg PO TID Qty: 90 0RF promethazine 25 mg tablet 25 mg PO Q6H PRN (Reason: nausea and vomiting) Qty: 20 0RF Referrals: Holley Ratliff DO [Primary Care Provider] - Coding Level of Care Code ED Public Health Advisor for [facility]
[2023-04-04 20:25] VITALS: BP 120/90; PULSE 94; RESP 16; O2SAT 100
[2023-04-04 20:31] LABS: Calcium 14.9 mg/dL (8.5-10.5)
[2023-04-04 20:35] VITALS: BP 121/77; PULSE 92; RESP 14; O2SAT 99
[2023-04-04] MEDS: diphenhydrAMINE 50 mg/mL SDV 1mL IVP (20:40)
[2023-04-04] MEDS: metoclopramide 5 mg/mL SDV 2 mL 10 MG IVP (20:44)
[2023-04-04] MEDS: sodium chloride 0.9% 1,000 ML 999 ML IV ×2 (20:48→21:32)
[2023-04-04 21:14] LABS: Bilirubin Urine Neg (Negative); Blood Urine Neg (Negative); Glucose Urine UA Norm (Normal); Ketones Urine 1+ (Negative); Nitrate Urine Negative (Negative); Protein Urine Trace (Negative); Urine Appearance SL Hazy (CLEAR); Urine Color Amber (Yellow); Urobilinogen Urine Neg (Negative); pH Urine 5 (5-7)
[2023-04-04 21:15] LABS: Add Urine Microscopic? YES; Bacteria Urine 2+ /hpf; Leukocyte Esterase Urine Trace (Negative); Mucus Urine 1+ /hpf; Transitional Epi Cells Urine 0-4 /hpf
[2023-04-04 21:16] LABS: Add Urine Culture? No; Amorphous Sediment Urine 2+ /hpf
[2023-04-04 21:33] VITALS: BP 118/63; PULSE 95; RESP 18; O2SAT 100
--- NOTE | 2023-04-04 22:02 | CTR_ITS ---
PROCEDURE INFORMATION: Exam: CT Abdomen And Pelvis Without Contrast Exam date and time: 04/04/2023 10:14 PM Age: 22 years old Clinical indication: Nausea and vomiting; Additional info: N/v TECHNIQUE: Imaging protocol: Computed tomography of the abdomen and pelvis without contrast. Radiation optimization: All CT scans at this facility use at least one of these dose optimization techniques: automated exposure control; mA and/or kV adjustment per patient size (includes targeted exams where dose is matched to clinical indication); or iterative reconstruction. REPORTING DATA: Count of CT and Cardiac NM exams in prior 12 months: This patient has received 0 known CTs and 0 known cardiac nuclear medicine studies in the 12 months prior to the current study. COMPARISON: CR (PELVIS, ) 02/20/2023 2:03 PM RADIATION DOSE METRICS: Total DLP (mGy-cm): 645.96 FINDINGS: Liver: No mass. Gallbladder and bile ducts: No calcified stones. No ductal dilation. Pancreas: No ductal dilation. Spleen: No splenomegaly. Adrenal glands: Normal. No mass. Kidneys and ureters: No hydronephrosis. Stomach and bowel: No obstruction. No mucosal thickening. Appendix: The appendix is borderline caliber 6-7 mm. No periappendiceal inflammatory changes are noted. Correlate clinically as findings are equivocal, but sometimes seen with early appendicitis. Intraperitoneal space: No free air. No significant fluid collection. Vasculature: No abdominal aortic aneurysm. Lymph nodes: No enlarged lymph nodes. Urinary bladder: Unremarkable as visualized. Reproductive: Unremarkable as visualized. Bones/joints: Unremarkable. No acute fracture. Soft tissues: Unremarkable. CT/CT abdomen pelvis wo con [id number] IMPRESSION: The appendix is borderline caliber 6-7 mm. No periappendiceal inflammatory changes are noted. Correlate clinically as findings are equivocal, but sometimes seen with early appendicitis.
--- NOTE | 2023-04-04 22:34 | ECG_ITS ---
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 Measurements Intervals [place] Rate: 89 P: 42 MN: 158 QRS: 30 QRSD: 95 T: 28 QT: 353 QTc: 431 Interpretive Statements SINUS RHYTHM NONSPECIFIC ST & T-WAVE ABNORMALITY No previous ECG available for comparison Electronically Signed On 04-05-2023 17:36:14 CDT by Ilir Wright M.D. [id number]
[2023-04-04 22:40] LABS: Free T4 Free Thyroxine 1.42 ng/dL (0.82-1.77); T3 Free 2.7 PG/ML (2.0-4.4)
[2023-04-04 22:44] LABS: Ionized Calcium 1.8 mmol/L (1.1-1.4)
--- NOTE | 2023-04-04 22:44 | PM.HP ---
Providers/Chief Complaint Admitting Physician: Addison Nguyen MD Primary Care Provider: Holley Ratliff DO Chief Complaint: N/V Not able to eat solid foods History of Present Illness Edith Birmingham is a 22 year old female with recent history of delivery with the last 2 months complicated by thyroiditis, gestational diabetes, intractable nausea and vomiting for last 2 months. Patient presented the ER today because of persistent nausea and vomiting and unable to keep even liquids down for last few days. In the ER she was found to have creatinine of 1.1 with calcium of more than 15. She was given 1 L of IV fluid bolus and hospitalist service was consulted for further management. On examination patient was lying comfortably in bed. Denies any headache, cramping or stiffness in her muscles, difficulty in swallowing. Patient also gives history of failure to . Review of Systems General: Reports: 10 or more systems reviewed and unremarkable except in HPI and below Const: Denies: fever(s), chills, body aches, change in appetite, change in weight, malaise, night sweats, diaphoresis, change in sleep pattern, daytime sleepiness or snoring Eyes: Denies: change in vision, blurry vision, photophobia, eye discomfort or eye discharge ENMT: Denies: throat pain, enlarged tonsils, hoarseness, mouth pain, oral sores, dry mouth, tinnitus, nasal congestion or post nasal drip Card: Denies: chest pain, palpitations, irregular heart rhythm, edema, swelling of feet/ankles, lightheadedness, syncope, pre-syncope, dyspnea on exertion, orthopnea, leg pain with exertion or acrocyanosis Resp: Denies: dyspnea, productive cough, non-productive cough, wheezing, stridor, pain on inspiration, change in phlegm color, hemoptysis or chest congestion GI: Denies: abdominal pain, nausea, vomiting, hematemesis, coffee ground emesis, dysphagia, heartburn, diarrhea, constipation, bloating, GI cramping, change in bowel habits, pain on defecation, hematochezia or melena : Denies: flank pain, dysuria, urinary frequency, urinary urgency, urinary hesitancy, nocturia or hematuria Musc: Denies: neck pain, back pain, extremity pain, joint pain, joint swelling, joint redness, joint stiffness or limited range of motion Neuro: Denies: headache(s), numbness in extremities, weakness in extremities, sensory changes, lack of coordination, difficulty walking, frequent falls, dizziness, vertigo, confusion, Slurred speech present, difficulty communicating thoughts or seizure-like activity Psych: Denies: anxiety, depression, mood swings, panic attacks, hopelessness or irritability Endo: Denies: polyuria, polydipsia, tired all the time, cold intolerance, excessive sweating, flushing or heat intolerance Cristian/Lymph: Denies: easy bruising or easy bleeding All/Imm: Denies: tongue swelling, facial swelling or acute wheezing Medications/Allergies Home Medications Medication Instructions Recorded Confirmed Last Taken Type acetaminophen 500 mg tablet 1,000 mg PO Q6H PRN Pain 03/28/23 03/28/23 Unknown History loperamide 2 mg capsule 4 mg PO TID PRN Diarrhea 03/28/23 03/28/23 Unknown History methimazole 10 mg tablet 30 mg PO QAM 03/28/23 03/28/23 03/28/23 09:00 History methimazole 5 mg tablet 15 mg PO TID #90 tabs 03/28/23 Unknown Rx ondansetron 4 mg disintegrating 4 mg PO TID PRN Nausea And Vomiting 03/28/23 03/28/23 Unknown History tablet promethazine 25 mg tablet 25 mg PO Q6H PRN nausea and 03/28/23 Unknown Rx vomiting #20 tabs propranolol 20 mg tablet 20 mg PO TID 03/28/23 03/28/23 03/28/23 History Allergies Allergy/AdvReac Type Severity Reaction Status Date / Time No Known Allergies Allergy Verified 04/04/23 17:58 PFSH Acute PFSH: Medical History (Updated 04/05/23 @ 04:20 by Addison Nguyen MD) Gestational diabetes mellitus (GDM) No pertinent family history (normal spontaneous vaginal delivery) Post thyroiditis Pre-eclampsia Prolonged rupture of membranes, greater than 24 hours, delivered, current hospitalization Vitals/I&O/Wt Last Vital Signs Temp 97.6 F 04/04/23 18:00 Pulse 95 04/04/23 21:33 Resp 18 04/04/23 21:33 BP 118/63 04/04/23 21:33 Pulse Ox 100 04/04/23 21:33 O2 Del Method Room Air 04/04/23 21:33 04/04/23 04/04/23 04/04/23 06:59 14:59 22:59 Intake Total 732.6 / 732.6 Balance 732.6 / 732.6 Weight last 48 hrs Weight 72.575 kg Physical Exam Narrative: General: No acute distress, AO x3, dehydrated HEENT: PERRLA, pupils bilaterally equal and reactive Chest: Normal vesicular breath sounds, no added sounds, equal good air entry bilaterally CVS: S1-S2 regular, no murmurs, no tachycardia, no gallops, no rubs Abdomen: Soft, nontender, no organomegaly, bowel sounds present Neuro: No focal deficits, no facial deformity, AO x3, power 5/5 in all limbs Data 04/04/23 18:22 04/04/23 18:22 A&P Assessment and plan (1) Nausea & vomiting: Check CT abdomen pelvis with contrast. Clear liquid diet. Protonix daily, Zofran and Reglan as needed. EKG to monitor for QTc. (2) Hypercalcemia: Most likely in setting of dehydration secondary to nausea and vomiting. Patient does have thyroiditis so cannot rule out parathyroid involvement. Check ionized calcium. Check PTH, urine calcium, vitamin D levels. Normal saline at 75 cc/h. Repeat calcium level in AM. Will monitor calcium level if needed will start on calcitonin but for now we will hold off. (3) DAVID (acute kidney injury): Most likely in setting of nausea, vomiting and hypercalcemia. Normal saline 75 cc/h. Medical reconciliation done for nephrotoxic drugs. Check urine lites, urine creatinine, urine eosinophils. (4) Hyponatremia: As above. (5) Post thyroiditis: Check free T3, free T4. Continue home dose of methimazole. Will need to follow-up with it programmer analyst as an outpatient. Plan Continue home dose of propranolol, methimazole. Full code Clear liquid diet Protonix for PUD prophylaxis Heparin 5000 every 12 hourly for DVT prophylaxis. Attestations Medical Necessity Statement*: Admission for more than 2 midnights for management of hypercalcemia, acute kidney injury for patient with recent thyroiditis admitted for intractable nausea and vomiting Diagnoses Nausea & vomiting R11.2 Hypercalcemia E83.52 DAVID (acute kidney injury) N17.9 Hyponatremia E87.1 Post thyroiditis O90.5
[2023-04-04 23:49] VITALS: BP 123/80; PULSE 95; RESP 17; TEMP 36.5; O2SAT 99
[2023-04-04] MEDS: heparin 5,000 unit/mL INJ 1 mL 5000 UNIT SUBCUT (23:49)
[2023-04-04] MEDS: pantoprazole 40 mg SDV IVP (23:49)
[2023-04-04] MEDS: sodium chloride 0.9% 1,000 ML 75 ML IV (23:49)
[2023-04-05] VITALS (7 sets, daily range): BP systolic 100–120; BP diastolic 62–75; PULSE 82–99; RESP 16–18; TEMP 36.4–36.7; O2SAT 95–97
[2023-04-05 00:43] LABS: Amphetamines Screen Urine Negative (Negative); Barbiturates Screen Urine Negative (Negative); Benzodiazepines Screen Urine Negative (Negative); Cocaine Screen Urine Negative (Negative); Opiate Screen Urine Negative (Negative); PCP Screen Urine Negative (Negative); THC Screen Urine Negative (Negative)
[2023-04-05 00:52] LABS: Potassium, Radom Urine 46 mmol/L; Urine Random Chloride 23 mmol/L
[2023-04-05 00:55] LABS: Urine Random Sodium 10 mmol/L
[2023-04-05 01:49] LABS: Parathyroid Hormone 5.2 pg/mL (15-65)
[2023-04-05 01:55] LABS: Iron 43 ug/dL (37-145); Percent Saturation 18.3 % (20-50); Thyroid Stimulating Hormone 0.01 uIU/mL (0.27-4.20); Total Iron Binding Capacity 234 mcg/dl; Unsaturated Iron Binding 191 ug/dL (112-347); Vitamin B12 809 pg/mL (232-1245)
[2023-04-05 02:22] LABS: Calcium 14.8 mg/dL (8.5-10.5)
[2023-04-05 02:28] LABS: 25 Hydroxy Vitamin D 33 ng/mL (30-100)
[2023-04-05 07:20] LABS: Basophils % 0.6 %; Eosinophils # 0.4 10^3/uL (0.0-0.8); Hematocrit 31.7 % (37.0-47.0); Hemoglobin 10.2 g/dL (11.5-15.3); Lymphocytes # 1.5 10^3/uL (0.8-4.8); Lymphocytes % 30.1 %; Mean Corpuscular HGB Conc 32.2 g/dL (30.0-36.0); Mean Corpuscular Hemoglobin 28.1 pg (28.0-34.0); Mean Corpuscular Volume 87.3 fl (81-99); Mean Platelet Volume 10.7 fL (7.4-10.4); Monocytes # 0.5 10^3/uL (0.2-0.9); Neutrophils # 2.58 10^3/uL (1.8-7.7); Neutrophils % 51.9 %; Nucleated Red Blood Cells % 0 %; Platelet Count 229 10^3/cmm (130-400); Red Blood Count 3.63 10^6/uL (4.1-5.3); Red Cell Distribution Width 12.9 % (12.1-15.1)
[2023-04-05 07:41] LABS: Alanine Aminotransferase 32 U/L (0-33); Albumin Level 3.2 g/dL (3.5-5.2); Alkaline Phosphatase 82 U/L (35-105); Anion Gap 12.9 (5-19); Aspartate Amino Transferase 28 U/L (0-32); Blood Urea Nitrogen 21 mg/dL (6-20); Calcium 12.7 mg/dL (8.5-10.5); Carbon Dioxide 21 mmol/L (22-29); Chloride 109 mmol/L (98-107); Chol HDL Ratio 6.43 mg/dL (0.0-4.40); Cholesterol 148 mg/dL (0-200); Globulin 2.2 g/dL (1.3-4.6); Glomerular Filtration Rate 61.6 mL/min (90-130); Glucose 83 mg/dL (65-115); HDL Cholesterol 23 mg/dL (60-100); LDL Cholesterol Calculated 82 mg/dL (50-129); LDL HDL Ratio 3.57 RATIO (0.00-3.22); Magnesium 1.5 mg/dL (1.7-2.3); Osmolality Calculated 290 mOsm/kg (285-295); Potassium 3.9 mmol/L (3.5-5.1); Sodium 139 mmol/L (136-145); Total Bilirubin 0.2 mg/dL (0.15-1.2); Total Protein 5.4 g/dL (6.6-8.7); Triglycerides 213 mg/dL (0-150)
[2023-04-05 07:51] LABS: Estmated Average Glucose 85; Hemoglobin A1C 4.6 % (4.0-6.0)
[2023-04-05 07:57] LABS: Folate Level 10.4 ng/mL (4.8-37.3)
--- NOTE | 2023-04-05 09:01 | PC.PHAR ---
PT STATES TAKES ONDANSETRON 4 MG BID. RX FILLED 04/04 FOR 4 MG TID. PT STATES TAKES LOPERAMIDE 2 MG 2 CAPS BID PRN. RX WRITTEN 02/08 2 CAPS TID PRN. PT STATES TAKES PROPRANOLOL 20 MG BID. RX WRITTEN 03/21/23 20 MG PO TID.
[2023-04-05] MEDS: propranolol 20 mg Tablet PO ×3 (09:54→20:07)
[2023-04-05] MEDS: methIMAzole 5 MG Tablet 15 MG PO ×3 (09:54→20:07)
[2023-04-05] MEDS: heparin 5,000 unit/mL INJ 1 mL 5000 UNIT SUBCUT ×2 (11:19→22:28)
[2023-04-05] MEDS: calcitonin,salmon 200 unit/mL SDV 2mL 100 UNIT SUBCUT (11:20)
--- NOTE | 2023-04-05 12:34 | P.PN_ITS ---
Subjective Subjective: This morning calcium is improving Given 1 dose of calcitonin Parathyroid hormones are not high to suggest the primary etiology Did discuss with the it could be related to hyperthyroidism causing increased bone turnover versus dehydration Continue clear liquids Patient is not expressing emesis She is tolerating clear liquid diet as of now Vitals/I&O/Wt Last Vital Signs Temp 97.6 F 04/05/23 10:52 Pulse 99 04/05/23 10:52 Resp 16 04/05/23 10:52 BP 113/75 04/05/23 10:52 Pulse Ox 97 04/05/23 10:52 O2 Del Method Room Air 04/05/23 10:52 04/04/23 04/05/23 04/05/23 22:59 06:59 14:59 Intake Total 732.6 / 732.6 1000 / 1732.6 480 / 480 Balance 732.6 / 732.6 1000 / 1732.6 480 / 480 Weight last 48 hrs Weight 72.575 kg Physical Exam Narrative: Patient is awake and alert Signs of dehydration improving Tolerating clear liquid GCS 15 Abdomen soft S1, S2 Nonfocal neuro exam Data 04/05/23 06:55 04/05/23 06:55 A&P Assessment and plan (1) Post thyroiditis: (2) Hyponatremia: (3) DAVID (acute kidney injury): (4) Nausea & vomiting: (5) Hypercalcemia: Plan Symptomatic hypercalcemia Calcium trending down Dehydration versus increased bone turnover from hyperthyroidism Low PTH would not explain her etiology of hypercalcemia Magnesium is also low Check vitamin D and PTH related peptide has been requested Patient does not have any sarcoidosis related features We will give 1 dose of calcitonin Recheck calcium in the evening Recurrent nausea vomiting related to hypercalcemia Continue Protonix Clear liquid diet for now Patient does not want to advance diet today Hyperthyroidism with thyroiditis Continue methimazole and propanolol Dehydration: Increase the rate of IV fluids to 100 mL/h Plan to discharge home tomorrow if tolerating diet We will touch base with Dr. Eller, she has appointment with transmission system operator in April Clear liquid diet Full code DVT prophylaxis on board Attestations Medical Necessity Statement*: Continue medical management Diagnoses Post thyroiditis O90.5 Hyponatremia E87.1 DAVID (acute kidney injury) N17.9 Nausea & vomiting R11.2 Hypercalcemia E83.52
[2023-04-05] MEDS: sodium chloride 0.9% 1,000 ML 75 ML IV (15:21)
[2023-04-05 15:48] LABS: Calcium Urine Random 32.7 mg/dL
[2023-04-05 17:39] LABS: Calcium 12.6 mg/dL (8.5-10.5)
[2023-04-05 17:56] LABS: 25 Hydroxy Vitamin D 23 ng/mL (30-100)
[2023-04-05] MEDS: pantoprazole 40 mg SDV IVP (22:28)
[2023-04-06] VITALS: BP 105/65; PULSE 90; RESP 17; TEMP 36.7; O2SAT 96
[2023-04-06 04:00] VITALS: BP 103/65; PULSE 82; RESP 16; TEMP 36.7; O2SAT 95
[2023-04-06 07:36] VITALS: BP 138/60; PULSE 80; RESP 14; TEMP 37.1; O2SAT 98
[2023-04-06] MEDS: methIMAzole 5 MG Tablet 15 MG PO (09:32)
[2023-04-06] MEDS: propranolol 20 mg Tablet PO (09:32)
[2023-04-06 10:00] VITALS: BP 102/60; PULSE 82; RESP 16; TEMP 36.6; O2SAT 95
--- NOTE | 2023-04-06 10:57 | PM.DCS ---
Discharge Providers Date of Admission: 04/04/23 21:41 Date of Discharge: April 06, 2023 Attending Provider at Admission: Addison Nguyen MD Attending Provider at Discharge: Francesco Fuller MD Primary Care Provider: Holley Ratliff DO Diagnoses at Discharge Discharge Diagnosis (1) Post thyroiditis: Status: Acute (2) Hyponatremia: Status: Acute (3) DAVID (acute kidney injury): Status: Acute (4) Nausea & vomiting: Status: Acute (5) Hypercalcemia: Status: Acute Reason for Visit Reason for Visit: N/V Not able to eat solid foods Hospital Course Hospital Course 22-year-old female who recently started treatment with methimazole and propanolol for related thyroiditis, has appointment to see Dr. Eller in April, present to the hospital further nausea vomiting, she was diagnosed with hypercalcemia and dehydration, she was given IV fluid during hospitalization which trended her calcium down, her nausea and vomiting improved, she has low PTH, low vitamin D, her high calcium seems to be secondary to dehydration, I highly doubt she would have anything underlying malignant in nature however PTH related peptide has been requested by the admitting physician, my concern is related to hypercalcemia related to increased bone turnover from hyperthyroidism. Physical Exam Narrative: Signs of dehydration improving Tolerating diet GCS 15 Nonfocal neuro exam No active pain Awake and alert S1, S2 Abdomen soft Discharge Data Studies Completed and Pending Completed Studies During Hospitalization Category Date Time Status CT abdomen pelvis wo con [id number] Stat Cat Scan 04/04/23 22:02 Completed Pending at discharge Category Date Time Status Adrenocorticotropic Hormone AM LABS Lab 04/06/23 04:00 Ordered CMP [Comprehensive Metabolic Panel] AM LABS Lab 04/06/23 04:00 Ordered Complete Blood Count w/Auto AM LABS Lab 04/06/23 04:00 Ordered ESR [Erythrocyte Sedimentation Rate] AM LABS Lab 04/06/23 04:00 Ordered PTH Related [PTH Related Peptide (Protein)] Stat Lab 04/05/23 11:03 Received Vitamin D 1,25 Dihydroxy Stat Lab 04/04/23 20:00 Received Radiology Impressions Abdomen/Pelvis CT 04/04/23 22:02 IMPRESSION: The appendix is borderline caliber 6-7 mm. No periappendiceal inflammatory changes are noted. Correlate clinically as findings are equivocal, but sometimes seen with early appendicitis. Laboratory Results WBC 5.0 10^3/uL (4.0-10.0) 04/05/23 06:55 RBC 3.63 10^6/uL (4.1-5.3) L 04/05/23 06:55 Hgb 10.2 g/dL (11.5-15.3) L 04/05/23 06:55 Hct 31.7 % (37.0-47.0) L 04/05/23 06:55 MCV 87.3 fl (81-99) 04/05/23 06:55 MCH 28.1 pg (28.0-34.0) 04/05/23 06:55 MCHC 32.2 g/dL (30.0-36.0) 04/05/23 06:55 RDW 12.9 % (12.1-15.1) 04/05/23 06:55 Plt Count 229 10^3/cmm (130-400) 04/05/23 06:55 MPV 10.7 fL (7.4-10.4) H 04/05/23 06:55 Neut % (Auto) 51.9 % 04/05/23 06:55 Lymph % (Auto) 30.1 % 04/05/23 06:55 [place] % (Auto) 10.0 % 04/05/23 06:55 Eos % (Auto) 7.0 % 04/05/23 06:55 Baso % (Auto) 0.6 % 04/05/23 06:55 Neut # (Auto) 2.58 10^3/uL (1.8-7.7) 04/05/23 06:55 Lymph # (Auto) 1.5 10^3/uL (0.8-4.8) 04/05/23 06:55 [place] # (Auto) 0.5 10^3/uL (0.2-0.9) 04/05/23 06:55 Eos # (Auto) 0.4 10^3/uL (0.0-0.8) 04/05/23 06:55 Baso # (Auto) 0.0 10^3/uL (0.0-0.1) 04/05/23 06:55 Nucleated RBC % (auto) 0 % 04/05/23 06:55 Nucleated RBCs # 0.0 /100WBC 04/05/23 06:55 Sodium 139 mmol/L (136-145) 04/05/23 06:55 Potassium 3.9 mmol/L (3.5-5.1) 04/05/23 06:55 Chloride 109 mmol/L (98-107) H 04/05/23 06:55 Carbon Dioxide 21 mmol/L (22-29) L 04/05/23 06:55 Anion Gap 12.9 (5-19) 04/05/23 06:55 BUN 21 mg/dL (6-20) H 04/05/23 06:55 Creatinine 1.1 mg/dL (0.5-0.9) H 04/05/23 06:55 GFR Calculation 61.6 mL/min (90-130) L 04/05/23 06:55 Glucose 83 mg/dL (65-115) 04/05/23 06:55 Estimat Average Glucose 85 04/05/23 06:55 Hemoglobin A1c 4.6 % (4.0-6.0) 04/05/23 06:55 Calculated Osmolality 290 mOsm/kg (285-295) 04/05/23 06:55 Lactic Acid 1.5 mmol/L (0.5-2.2) 04/04/23 18:22 Calcium 12.6 mg/dL (8.5-10.5) H 04/05/23 06:55 Calcium 12.7 mg/dL (8.5-10.5) H 04/05/23 06:55 Ionized Calcium Tarah 1.8 mmol/L (1.1-1.4) H 04/04/23 20:00 Phosphorus 3.0 mg/dL (2.5-4.5) 04/05/23 06:55 Magnesium 1.5 mg/dL (1.7-2.3) L 04/05/23 06:55 Iron 43 ug/dL (37-145) 04/04/23 18:22 TIBC 234 mcg/dl 04/04/23 18:22 % Saturation 18.3 % (20-50) L 04/04/23 18:22 Unsat Iron Binding 191 ug/dL (112-347) 04/04/23 18:22 Total Bilirubin 0.2 mg/dL (0.15-1.2) 04/05/23 06:55 AST 28 U/L (0-32) 04/05/23 06:55 ALT 32 U/L (0-33) 04/05/23 06:55 Alkaline Phosphatase 82 U/L (35-105) 04/05/23 06:55 Total Protein 5.4 g/dL (6.6-8.7) L D 04/05/23 06:55 Albumin 3.2 g/dL (3.5-5.2) L 04/05/23 06:55 Globulin 2.2 g/dL (1.3-4.6) 04/05/23 06:55 Triglycerides 213 mg/dL (0-150) H 04/05/23 06:55 Cholesterol 148 mg/dL (0-200) 04/05/23 06:55 LDL Cholesterol, Calc 82 mg/dL (50-129) 04/05/23 06:55 HDL Cholesterol 23 mg/dL (60-100) L 04/05/23 06:55 LDL/HDL Ratio 3.57 RATIO (0.00-3.22) H 04/05/23 06:55 Cholesterol/HDL Ratio 6.43 mg/dL (0.0-4.40) H 04/05/23 06:55 Vitamin B12 809 pg/mL (232-1245) 04/04/23 18:22 25-OH Vitamin D Total 23 ng/mL (30-100) L 04/05/23 06:55 Folate 10.4 ng/mL (4.8-37.3) 04/05/23 06:55 TSH 0.01 uIU/mL (0.27-4.20) L 04/04/23 18:22 Free T4 1.42 ng/dL (0.82-1.77) 04/04/23 20:00 Free T3 2.7 PG/ML (2.0-4.4) 04/04/23 20:00 HCG, Qual Negative (Negative) 04/04/23 18:22 PTH Intact 5.2 pg/mL (15-65) L 04/04/23 20:00 Calcium (PTH Intact) 14.8 mg/dL (8.5-10.5) H* 04/04/23 20:00 Urine Color Smita (Yellow) 04/04/23 20:52 Urine Appearance Sl hazy (CLEAR) A 04/04/23 20:52 Urine pH 5 (5-7) 04/04/23 20:52 Ur Specific [place] 1.030 (1.005-1.030) 04/04/23 20:52 Urine Protein Trace (Negative) 04/04/23 20:52 Urine Glucose (UA) Norm (Normal) 04/04/23 20:52 Urine Ketones 1+ (Negative) H 04/04/23 20:52 Urine Blood Neg (Negative) 04/04/23 20:52 Urine Nitrate Negative (Negative) 04/04/23 20:52 Urine Bilirubin Neg (Negative) 04/04/23 20:52 Urine Urobilinogen Neg mg/dL (Negative) 04/04/23 20:52 Ur Leukocyte Esterase Trace (Negative) H 04/04/23 20:52 Urine RBC None /hpf (0-2) 04/04/23 20:52 Urine WBC 5-10 /hpf (0-5) H 04/04/23 20:52 Ur Squamous Epith Cells 10-15 /hpf (0-5) H 04/04/23 20:52 Ur Transition Epith Cell 0-4 /hpf 04/04/23 20:52 Amorphous Sediment 2+ /hpf 04/04/23 20:52 Urine Bacteria 2+ /hpf (NONE) H 04/04/23 20:52 Urine Mucus 1+ /hpf 04/04/23 20:52 Ur Random Sodium 10 mmol/L 04/04/23 20:52 Ur Random Potassium 46 mmol/L 04/04/23 20:52 Ur Random Chloride 23 mmol/L 04/04/23 20:52 Ur Random Calcium 32.7 mg/dL 04/04/23 20:52 Urine Opiates Screen Negative ng/mL (Negative) 04/04/23 20:52 Ur Barbiturates Screen Negative ng/mL (Negative) 04/04/23 20:52 Ur Phencyclidine Scrn Negative ng/mL (Negative) 04/04/23 20:52 Ur Amphetamines Screen Negative ng/mL (Negative) 04/04/23 20:52 U Benzodiazepines Scrn Negative ng/mL (Negative) 04/04/23 20:52 Urine Cocaine Screen Negative ng/mL (Negative) 04/04/23 20:52 U Marijuana (THC) Screen Negative ng/mL (Negative) 04/04/23 20:52 Vitals Last Vital Signs Temp 98.7 F 04/06/23 07:36 Pulse 80 04/06/23 07:36 Resp 14 04/06/23 07:36 BP 138/60 04/06/23 07:36 Pulse Ox 98 04/06/23 07:36 O2 Del Method Room Air 04/06/23 07:36 Discharge Plan Discharge Patient Disposition: Home Condition: Stable Prescriptions: New metoclopramide HCl 5 mg tablet 5 mg PO DAILY PRN (Reason: nausea and vomiting) Qty: 10 0RF magnesium 200 mg tablet 200 mg PO BID Qty: 10 0RF Continued loperamide 2 mg capsule 4 mg PO BID PRN (Reason: Diarrhea) acetaminophen [Tylenol Ex Str Rapid Release] 500 mg Tablet 1,000 mg PO Q6H PRN (Reason: Pain) propranolol 20 mg tablet 20 mg PO BID ondansetron 4 mg tablet,disintegrating 4 mg PO BID PRN (Reason: Nausea And Vomiting) methimazole 5 mg tablet 15 mg PO TID Qty: 90 0RF promethazine 25 mg tablet 25 mg PO Q6H PRN (Reason: nausea and vomiting) Qty: 20 0RF Discharge Orders: Discharge Order (Routine); Ordered 04/06/23 Ordered By: Francesco Fuller Referrals: Holley Ratliff DO [Primary Care Provider] - 04/11/23 10:30 am Margaret Eller MD [Physician] - 7-10 days Patient Instructions: Opioid Safety Discharge Attestations Time Spent in Discharge Care*: greater than 30 min Quality Metrics Clinical Quality Measures [ No reported AMI, CVA or VTE this stay] Coding Level of Care Code Acute Code for Chg Fwd Diagnoses Post thyroiditis O90.5 Hyponatremia E87.1 DAVID (acute kidney injury) N17.9 Nausea & vomiting R11.2 Hypercalcemia E83.52
[2023-04-06] MEDS: heparin 5,000 unit/mL INJ 1 mL 5000 UNIT SUBCUT (11:16)
[2023-04-06 11:51] LABS: Basophils % 0.7 %; Eosinophils # 0.3 10^3/uL (0.0-0.8); Eosinophils % 6.8 %; Hematocrit 29.6 % (37.0-47.0); Lymphocytes # 1.6 10^3/uL (0.8-4.8); Lymphocytes % 36.7 %; Mean Corpuscular HGB Conc 33.8 g/dL (30.0-36.0); Mean Corpuscular Hemoglobin 29.3 pg (28.0-34.0); Mean Corpuscular Volume 86.8 fl (81-99); Mean Platelet Volume 11.1 fL (7.4-10.4); Monocytes # 0.4 10^3/uL (0.2-0.9); Monocytes % 9.8 %; Neutrophils % 45.5 %; Nucleated Red Blood Cells % 0 %; Platelet Count 227 10^3/cmm (130-400); Red Blood Count 3.41 10^6/uL (4.1-5.3); Red Cell Distribution Width 13.2 % (12.1-15.1); White Blood Count 4.4 10^3/uL (4.0-10.0)
[2023-04-06 12:21] LABS: Erythrocyte Sedimentation Rate 4 mm/hr (0-15)
[2023-04-06 12:40] LABS: Alanine Aminotransferase 23 U/L (0-33); Albumin Level 3.1 g/dL (3.5-5.2); Alkaline Phosphatase 74 U/L (35-105); Anion Gap 15.1 (5-19); Aspartate Amino Transferase 20 U/L (0-32); Blood Urea Nitrogen 7 mg/dL (6-20); Calcium 10.5 mg/dL (8.5-10.5); Carbon Dioxide 20 mmol/L (22-29); Chloride 108 mmol/L (98-107); Globulin 1.9 g/dL (1.3-4.6); Glomerular Filtration Rate 123.9 mL/min (90-130); Glucose 81 mg/dL (65-115); Osmolality Calculated 287 mOsm/kg (285-295); Potassium 3.1 mmol/L (3.5-5.1); Sodium 140 mmol/L (136-145); Total Bilirubin 0.2 mg/dL (0.15-1.2)
--- NOTE | 2023-04-06 14:20 | PC.NURSE ---
Discussed discharge follow up appointments, new medications and continued medications. Patient had medications at bedside from pharmacy upon discharge. All questions answered, verbalized understanding.
[2023-04-06 14:22] VITALS: BP 102/60; PULSE 82; RESP 16; TEMP 36.6; O2SAT 95
[2023-04-10 11:28] LABS: Vit D 1,25 (Oh)2, Total 22 pg/mL (18-72); Vit D2 1,25 (Oh)2 <8 pg/mL; Vit D3 1,25 (Oh)2 22 pg/mL
[2023-04-11 12:18] LABS: Adrenocorticotropic Hormone 6 pg/mL (6-50)
[2023-04-13 15:31] LABS: PTH Related Peptide (Protein) <5 pg/mL (11-20)
== END 2023-04-06 13:30 | disposition home or self-care (01) | DRG 641 ==
LOC: ER 20:24 → MEDSURG 23:06
PROVIDERS: Emergency Medicine; Admitting Provider Student in an Organized Health Care Education/Training Program; Emergency Provider Emergency Medicine; PCP Family Medicine; Visit Provider Internal Medicine
DX: E83.52 Hypercalcemia (principal); E87.1 Hypo-osmolality and hyponatremia; N17.9 Acute kidney failure, unspecified; O90.5 Postpartum thyroiditis; E86.0 Dehydration; E83.42 Hypomagnesemia
CPT/HCPCS: 36415; 74176; 80053; 80061; 80306; 81001; 82024; 82306; 82310; 82330; 82340; 82436; 82542; 82607; 82652; 82746; 83036; 83540; 83550; 83605; 83735; 83970; 84100; 84133; 84300; 84439; 84443; 84481; 84703; 85025; 85651; 93005; 96361; 96372; 96374; 96375; 99285; C9113; J0630; J1200; J1644; J2765; J7030

== ENCOUNTER → 2023-04-11 14:26 | Outpatient (BNVA) | payer OTHER, MEDICAID, SELFPAY | PROVIDERS: PCP Family Medicine; Referring Provider Family Medicine; Visit Provider Internal Medicine | DX: E07.9 Disorder of thyroid, unspecified (principal) | CPT/HCPCS: 36415; 80053; 82306; 82310; 83516; 83970; 84439; 84443; 84480; 86376; 86800 ==

== ENCOUNTER 2023-04-22 12:48 | Outpatient (CLI) | payer MEDICAID, SELFPAY ==
--- NOTE | 2023-04-22 13:15 | US_ITS ---
WS: [email or web address] THYROID ULTRASOUND HISTORY: E07.9 - Disorder of thyroid, unspecified COMPARISON: None available. Right lobe: 1.4 cm x 1.3 cm x 4.7 cm (w x ap x l). Volume: 4.2 cm3. Normal sized thyroid. There is very mild coarse echotexture throughout the thyroid but no mass. Very slight increased vascularity. Left lobe: 1.5 cm x 1.2 cm x 3.8 cm (w x ap x l). Volume: 3.5 cm3. Normal sized gland with mild coarse echotexture. No mass or nodule. Mild increased vascularity. Isthmus: 0.1 cm. IMPRESSION: 1. No thyroid nodule or mass. 2. Very slight coarse echotexture throughout the gland and mild hyperemia. Correlate for possible ear ly changes of Anthony's thyroiditis.
== END 2023-04-22 12:49 | disposition home or self-care (01) ==
PROVIDERS: PCP Family Medicine; Visit Provider Internal Medicine
DX: E07.9 Disorder of thyroid, unspecified (principal); O90.5 Postpartum thyroiditis
CPT/HCPCS: 76536

== ENCOUNTER 2023-06-06 10:00 | Outpatient (CLI) | payer MEDICAID, SELFPAY ==
[2023-06-06 11:06] LABS: Calcium 8.5 mg/dL (8.5-10.5)
[2023-06-06 11:12] LABS: Parathyroid Hormone 60.6 pg/mL (15-65)
[2023-06-06 11:17] LABS: Alanine Aminotransferase 24 U/L (0-33); Albumin Level 4.1 g/dL (3.5-5.2); Alkaline Phosphatase 139 U/L (35-105); Anion Gap 13.1 (5-19); Aspartate Amino Transferase 18 U/L (0-32); Blood Urea Nitrogen 12 mg/dL (6-20); Calcium 8.5 mg/dL (8.5-10.5); Carbon Dioxide 24 mmol/L (22-29); Chloride 106 mmol/L (98-107); Free T4 Free Thyroxine 0.74 ng/dL (0.82-1.77); Globulin 2.5 g/dL (1.3-4.6); Glomerular Filtration Rate 152.9 mL/min (90-130); Glucose 106 mg/dL (65-115); Osmolality Calculated 288 mOsm/kg (285-295); Potassium 4.1 mmol/L (3.5-5.1); Sodium 139 mmol/L (136-145); Thyroid Stimulating Hormone 4.16 uIU/mL (0.27-4.20); Total Bilirubin 0.2 mg/dL (0.15-1.2); Total Protein 6.6 g/dL (6.6-8.7)
[2023-06-07 11:35] LABS: T3 Total 88 ng/dL (76-181)
== END 2023-06-06 10:01 | disposition home or self-care (01) ==
PROVIDERS: PCP Family Medicine; Visit Provider Internal Medicine
DX: E07.9 Disorder of thyroid, unspecified (principal); E05.90 Thyrotoxicosis, unspecified without thyrotoxic crisis or storm; E83.52 Hypercalcemia; O90.5 Postpartum thyroiditis; R11.2 Nausea with vomiting, unspecified
CPT/HCPCS: 36415; 80053; 82310; 83970; 84439; 84443; 84480

== ENCOUNTER 2023-07-15 16:22 | Outpatient (CLI) | payer MEDICAID, SELFPAY ==
[2023-07-15 17:30] LABS: Alanine Aminotransferase 24 U/L (0-33); Albumin Level 4.2 g/dL (3.5-5.2); Alkaline Phosphatase 117 U/L (35-105); Anion Gap 16.9 (5-19); Aspartate Amino Transferase 22 U/L (0-32); Blood Urea Nitrogen 18 mg/dL (6-20); Carbon Dioxide 19 mmol/L (22-29); Chloride 102 mmol/L (98-107); Globulin 3.2 g/dL (1.3-4.6); Glomerular Filtration Rate 103.7 mL/min (90-130); Glucose 79 mg/dL (65-115); Osmolality Calculated 279 mOsm/kg (285-295); Potassium 3.9 mmol/L (3.5-5.1); Sodium 134 mmol/L (136-145); Thyroid Stimulating Hormone 2.19 uIU/mL (0.27-4.20); Total Bilirubin 0.3 mg/dL (0.15-1.2); Total Protein 7.4 g/dL (6.6-8.7)
[2023-07-15 18:11] LABS: Free T4 Free Thyroxine 0.98 ng/dL (0.82-1.77)
[2023-07-17 07:15] LABS: T3 Total 120 ng/dL (76-181)
== END 2023-07-15 16:23 | disposition home or self-care (01) ==
PROVIDERS: PCP Family Medicine; Visit Provider Internal Medicine
DX: E05.90 Thyrotoxicosis, unspecified without thyrotoxic crisis or storm (principal)
CPT/HCPCS: 36415; 80053; 84439; 84443; 84480

== ENCOUNTER 2023-08-11 09:48 | Outpatient (CLI) | payer MEDICAID, SELFPAY ==
--- NOTE | 2023-08-11 10:00 | US_ITS ---
WS: [email or web address] EARLY OBSTETRICAL ULTRASOUND (<14 WEEKS). HISTORY: SUPERVISION OF HIGH RISK , 1ST TRIMESTER COMPARISON: None available. Single intrauterine gestational sac is identified. Cardiac activity at 160 BPM. Pierre-rump length elpidio sures 3.2 cm which corresponds to a gestation of 10w1d. Normal-appearing yolk sac and amnion demonstr ated. Small subchorionic hemorrhage. Subchorionic hemorrhage just to the LEFT and inferior gestationa l sac measuring 4.5 x 3.0 x 2.0 cm. No free fluid. LEFT ovary not visualized. No adnexal masses. IMPRESSION: 1. Single intrauterine gestation of 10 weeks 1 day with an EDC of 03/07/2024. 2. Normal cardiac activity. 3. Small subchorionic hemorrhage.
== END 2023-08-11 09:49 | disposition home or self-care (01) ==
LOC: RAD 09:48
PROVIDERS: PCP Family Medicine; Visit Provider Family Medicine
DX: O09.91 Supervision of high risk pregnancy, unspecified, first trimester (principal); Z3A.10 10 weeks gestation of pregnancy
CPT/HCPCS: 76801; 76817

== ENCOUNTER 2023-09-19 08:45 | Outpatient (CLI) | payer MEDICAID, SELFPAY ==
[2023-09-19 09:42] LABS: Free T4 Free Thyroxine 0.97 ng/dL (0.82-1.77); Thyroid Stimulating Hormone 2.18 uIU/mL (0.27-4.20)
== END 2023-09-19 08:46 | disposition home or self-care (01) ==
LOC: LAB 08:47
PROVIDERS: PCP Family Medicine; Visit Provider Internal Medicine
DX: E07.9 Disorder of thyroid, unspecified (principal); E05.90 Thyrotoxicosis, unspecified without thyrotoxic crisis or storm
CPT/HCPCS: 36415; 84439; 84443

== ENCOUNTER 2023-11-23 14:38 | Outpatient (CLI) | payer MEDICAID, SELFPAY ==
--- NOTE | 2023-11-23 14:44 | USR_ITS ---
PROCEDURE INFORMATION: Exam: US After First Trimester, Transabdominal Exam date and time: 11/23/2023 3:16 PM Age: 23 years old Clinical indication: Screening exam; Routine US, uterus; Additional info: Anatomy check/supervision of high risk /2nd trim TECHNIQUE: Imaging protocol: Real-time transabdominal obstetrical ultrasound of the maternal pelvis and a second or third trimester with image documentation. COMPARISON: US OB <=14 wk fetus w transvag 08/11/2023 10:26 AM FINDINGS: Gestation: Single live intrauterine gestation. heart rate: 150 bpm presentation: Breech. Placenta: Unremarkable. No subchorionic bleed. Placenta is anterior fundal location. Negative for previa. Amniotic fluid: Amniotic fluid is normal for gestational age. ANATOMY: midline falx: Normal cerebellum: Normal lateral ventricles: Normal cisterna magna: Normal choroid plexus: Normal upper lip and nose: Not seen heart four-chamber view, heart size and position: Obscured by position right ventricular outflow tract: Normal left ventricular outflow tract: Normal kidneys: Normal stomach: Normal urinary bladder: Normal spine: Normal Umbilical cord insertion site into the abdomen: Normal Umbilical cord vessel number: Normal extremities: Normal external genitalia: Normal BIOMETRY: Gestational age (AUA): Previously estimated 24 weeks 4 days; 25 weeks 0 days based on the current biometry Estimated due date (AUA): 03/10/2024 estimated previously; 03/07/2024 based on the current biometry Estimated weight: 753.19 g. EFW by AC, BPD, FL, HC, [place] 1985 Biparietal diameter (BPD): 6.19 cm. EGA (BPD) is 25 w 1 d. 63.2 % percentile Head circumference (HC): 23.31 cm. EGA (HC) is 25 w 2 d. 59.4 % percentile Abdominal circumference (AC): 20.51 cm. EGA (AC) is 25 w 1 d. 58.1 % percentile Femur length (FL): 4.44 cm. EGA (FL) is 24 w 4 d. 38.3 % percentile Cephalic Index (CI): 75.03. (Normal range: 70 - 86) HC/AC: 1.14. (Normal range: 1.04 - 1.22) FL/HC: 19.05. (Normal range: 18.7 - 20.3) FL/BPD: 71.73. (Normal range: 71 - 87) FL/AC: 21.65. (Normal range: 20 - 24) MATERNAL: Uterus: Unremarkable. Cervix: Unremarkable. Closed appearance. Length 4.8 cm measured transabdominal. Right ovary/adnexa: Obscured by lack of adequate acoustic window. Left ovary/adnexa: Obscured by lack of adequate acoustic window. Intraperitoneal space: No intraperitoneal free fluid. US/US OB >= 14 weeks fetus [id number] IMPRESSION: 1. Single live intrauterine gestation. Breech position. 2. Unremarkable growth pattern. 3. Visible anatomy is unremarkable in appearance. 4. Nondiagnostic views of the 4 chamber heart and the face/profile.
== END 2023-11-23 14:39 | disposition home or self-care (01) ==
LOC: RAD 14:39
PROVIDERS: PCP Family Medicine; Visit Provider Family Medicine
DX: O09.92 Supervision of high risk pregnancy, unspecified, second trimester (principal); O32.1XX0 Maternal care for breech presentation, not applicable or unspecified; Z3A.00 Weeks of gestation of pregnancy not specified
CPT/HCPCS: 76805

== ENCOUNTER 2023-12-02 09:36 | Outpatient (CLI) | payer MEDICAID, SELFPAY ==
--- NOTE | 2023-12-02 09:40 | USR_ITS ---
PROCEDURE INFORMATION: Exam: US ; Follow up Exam date and time: 12/02/2023 9:56 AM Age: 23 years old Clinical indication: Screening exam; Routine US, uterus; Additional info: screening follow up TECHNIQUE: Imaging protocol: Transabdominal ultrasound of the uterus, real time with image documentation. Follow-up (eg, re-evaluation of size by measuring standard growth parameters and amniotic fluid volume, re-evaluation of organ system(s) suspected or confirmed to be abnormal on a previous scan). COMPARISON: US OB >= 14 weeks fetus [id number] 11/23/2023 3:16 PM FINDINGS: Gestation: Single viable IUP heart rate: heart rate is 142 bpm. position: profile unremarkable. lips/nose unremarkable. presentation: Single viable IUP in cephalic presentation. Placenta: Placenta is located anterior. Amniotic fluid: Amniotic fluid volume is normal. ANATOMY: heart four-chamber view, heart size and position: 4 chamber heart unremarkable. US[place] [id number] IMPRESSION: Viable IUP. No worrisome abnormality noted.
== END 2023-12-02 09:37 | disposition home or self-care (01) ==
LOC: RAD 09:36
PROVIDERS: PCP Family Medicine; Visit Provider Family Medicine
DX: Z36.2 Encounter for other antenatal screening follow-up (principal)
CPT/HCPCS: 76816

== ENCOUNTER 2024-01-18 11:07 | Outpatient (CLI) | payer MEDICAID, SELFPAY ==
[2024-01-18 12:44] LABS: Alanine Aminotransferase 18 U/L (0-33); Albumin Level 3.2 g/dL (3.5-5.2); Alkaline Phosphatase 310 U/L (35-105); Anion Gap 16.9 (5-19); Aspartate Amino Transferase 17 U/L (0-32); Blood Urea Nitrogen 10 mg/dL (6-20); Calcium 8.8 mg/dL (8.5-10.5); Carbon Dioxide 19 mmol/L (22-29); Chloride 103 mmol/L (98-107); Globulin 2.8 g/dL (1.3-4.6); Glomerular Filtration Rate 151.6 mL/min (90-130); Glucose 118 mg/dL (65-115); Osmolality Calculated 280 mOsm/kg (285-295); Potassium 3.9 mmol/L (3.5-5.1); Sodium 135 mmol/L (136-145); Thyroid Stimulating Hormone 0.98 uIU/mL (0.27-4.20); Total Bilirubin 0.2 mg/dL (0.15-1.2)
== END 2024-01-18 11:08 | disposition home or self-care (01) ==
LOC: LAB 11:08
PROVIDERS: PCP Family Medicine; Visit Provider Internal Medicine
DX: E05.90 Thyrotoxicosis, unspecified without thyrotoxic crisis or storm (principal)
CPT/HCPCS: 36415; 80053; 84439; 84443

== ENCOUNTER 2024-01-18 11:50 | Outpatient (CLI) | payer MEDICAID, SELFPAY ==
--- NOTE | 2024-01-18 11:56 | US_ITS ---
WS: [id number] BIOPHYSICAL PROFILE AND LIMITED OB. HISTORY: BPP AND GROWTH SCAN COMPARISON: 12/02/2023, 08/11/2023 Presentation: Vertex. Cervix: Closed and normal length. Placenta: Anterior, no previa or abruption. Grade: 1 HEART: FHR of 145BPM. measurements: BPD = 8.7 cm = 35w2d; greater than the 97th percentile HC = 31.8 cm = 35w6d; 90th percentile AC = 29.6 cm = 33w4d; 78th percentile FL = 6.8 cm = 35w0d; 91st percentile Normal amniotic fluid. EFW: 2415 g; 90th percentile AGA by ultrasound: 35w0d MARY by ultrasound: 02/22/2024 Biophysical profile: Parameters are as follows: Breathin Movement: 2 Tone: 2 Fluid volume: 2 US/US OB BPP wo NST [id number] IMPRESSION: 1. Biophysical profile score: 8/8. 2. Single intrauterine gestation of 35w0d with an EDC of 02/22/2024. Fetus is m easuring approximately 14 days greater than expected by the first trimester ult rasound. 3. Estimated weight at the 90th percentile. 4. Abdominal circumference measuring at the 78th percentile. The remaining biom etry above the 90th percentile. Large for gestational age fetus.
== END 2024-01-18 11:51 | disposition home or self-care (01) ==
LOC: RAD 11:50
PROVIDERS: PCP Family Medicine; Visit Provider Family Medicine
DX: O09.93 Supervision of high risk pregnancy, unspecified, third trimester (principal); O24.419 Gestational diabetes mellitus in pregnancy, unspecified control; O36.63X0 Maternal care for excessive fetal growth, third trimester, not applicable or unspecified; Z3A.35 35 weeks gestation of pregnancy
CPT/HCPCS: 76816; 76819

== ENCOUNTER 2024-01-18 12:32 | Outpatient (CLI) | payer MEDICAID, SELFPAY ==
[2024-01-18 12:32] VITALS: BMI 41.6
[2024-01-18 13:08] VITALS: BP 120/75; PULSE 75
[2024-01-18 13:24] VITALS: BP 124/69; PULSE 74
[2024-01-18 13:44] VITALS: BP 124/69; PULSE 74
== END 2024-01-18 13:44 ==
LOC: OPOB 12:43 → OBGYN 12:54
PROVIDERS: PCP Family Medicine; Visit Provider Family Medicine
DX: O24.419 Gestational diabetes mellitus in pregnancy, unspecified control (principal); Z3A.00 Weeks of gestation of pregnancy not specified
CPT/HCPCS: 59025

== ENCOUNTER 2024-01-25 12:03 | Outpatient (CLI) | payer MEDICAID, SELFPAY ==
--- NOTE | 2024-01-25 12:10 | US_ITS ---
WS: [email or web address] BIOPHYSICAL PROFILE AND LIMITED OB. HISTORY: SUPERVISON HIGH RISK /GESTATIONAL DIABETES COMPARISON: 12/02/2023, 08/11/2023, 01/18/2024 Presentation: Vertex. Cervix: Closed and normal length. Placenta: Anterior, no previa or abruption. Grade: 1 HEART: FHR of 144BPM. measurements: BPD = 8.8 cm = 35w5d; 94% HC = 32.3 cm = 36w3d; 84% AC = 30.6 cm = 34w4d; 78% FL = 7.0 cm = 36w0d; 92% EFW: 2625.7g; 88% AGA by ultrasound: 35w5d MARY by ultrasound: 02/24/2024 Measurements are internally concordant. Fetus continues to measure approximately 2 weeks greater in a ge than expected by the first trimester ultrasound. Biophysical profile: Parameters are as follows: Breathin Movement: 2 Tone: 2 Fluid volume: 2 US/US OB BPP wo NST [id number] IMPRESSION: 1. Biophysical profile score: 8/8. 2. Single intrauterine gestation of 35w5d with an EDC of 02/24/2024. Fetus arlene nues to measure approximately 2 weeks greater in size than expected compared to the first trimester ultrasound. 3. Biometry continues to demonstrate percentiles trending for a large for gesta tional age fetus. The abdominal circumference is just under the 90th percentile on today's exam. 4. Estimated weight at the 88th percentile. weight has increased by just over 200 g as compared to the most recent study.
== END 2024-01-25 12:04 | disposition home or self-care (01) ==
LOC: RAD 12:03
PROVIDERS: PCP Family Medicine; Visit Provider Family Medicine
DX: O09.893 Supervision of other high risk pregnancies, third trimester (principal); O24.419 Gestational diabetes mellitus in pregnancy, unspecified control; Z3A.35 35 weeks gestation of pregnancy
CPT/HCPCS: 76819

== ENCOUNTER 2024-01-25 12:44 | Outpatient (CLI) | payer MEDICAID, SELFPAY ==
[2024-01-25 13:04] VITALS: BP 125/69; PULSE 73
[2024-01-25 13:12] VITALS: RESP 16; BMI 41.6
[2024-01-25 13:25] VITALS: BP 116/71; PULSE 61
[2024-01-25 13:45] VITALS: BP 127/75; PULSE 64
== END 2024-01-25 14:00 ==
LOC: OPOB 12:52 → OBGYN 12:59
PROVIDERS: PCP Family Medicine; Visit Provider Family Medicine
DX: O24.419 Gestational diabetes mellitus in pregnancy, unspecified control (principal); Z3A.00 Weeks of gestation of pregnancy not specified
CPT/HCPCS: 59025

== ENCOUNTER 2024-01-27 13:45 | Outpatient (CLI) | payer MEDICAID, SELFPAY ==
[2024-01-27 13:45] VITALS: BMI 41.4
[2024-01-27 14:03] VITALS: BP 123/64; PULSE 78; TEMP 31
[2024-01-27 14:19] VITALS: BP 130/72; PULSE 67
[2024-01-27 14:27] VITALS: BP 130/72; PULSE 67; RESP 15; TEMP 36.6
== END 2024-01-27 14:28 | disposition home or self-care (01) ==
LOC: OPOB 13:53 → OBGYN 13:54
PROVIDERS: PCP Family Medicine; Visit Provider Family Medicine
DX: O24.419 Gestational diabetes mellitus in pregnancy, unspecified control (principal)
CPT/HCPCS: 59025; 99211

== ENCOUNTER 2024-02-01 12:04 | Outpatient (CLI) | payer MEDICAID, SELFPAY ==
--- NOTE | 2024-02-01 | US_ITS ---
[address] [address] Ultrasound Report Signed with Addenda Patient: Edith Birmingham Unit #: [id number] : 2000 Age/Sex: 23 / F ADM Date: 02/01/24 Loc: [facility] Room/Bed: Attending Dr: Holley Ratliff DO Ordering Provider/Ordering MD: Date of Service: Procedure(s): Accession Number(s): Report Number: [id number] ADDENDUM NOTE: Report was unsigned for reason: System failure. Original Signature date and time was: 02/01/24 @1255 Addendum Dictated By: Cece Mireles DO Addendum Signed By: Cece Mireles DO Signed Date/Time: 02/01/24 1641 Addendum Cosigned By: BIOPHYSICAL PROFILE AMNIOTIC FLUID HISTORY: SUPERVISION OF HIGH RISK PREGANCY-3RD TRIMESTER/GEST DIABETE COMPARISON: 01/25/2024 position: Vertex. Cardiac activity: 141 bpm. Cervix: Obscured by the head. Placenta: Anterior. No abruption or previa. Placenta grade: 1 Parameters are as follows: Breathin Movement: 2 Tone: 2 Fluid volume: 2 Amniotic Fluid Index: 8.4 cm IMPRESSION: 1. Biophysical profile score: 8/8. 2. Normal amniotic flui Dictated By: Cece Mireles DO Signed By: Cece Mireles DO Signed Date/Time: 02/01/24 1640 DD/ 1640 MTDD
== END 2024-02-01 12:05 | disposition home or self-care (01) ==
LOC: RAD 12:04
PROVIDERS: PCP Family Medicine; Visit Provider Family Medicine
DX: O09.93 Supervision of high risk pregnancy, unspecified, third trimester (principal); O24.419 Gestational diabetes mellitus in pregnancy, unspecified control
CPT/HCPCS: 76819

== ENCOUNTER 2024-02-01 12:43 | Outpatient (CLI) | payer MEDICAID, SELFPAY ==
[2024-02-01 12:43] VITALS: RESP 17; BMI 51.0
[2024-02-01 12:51] VITALS: TEMP 31.1
[2024-02-01 12:52] VITALS: BP 134/80; PULSE 88
== END 2024-02-01 13:26 | disposition home or self-care (01) ==
LOC: OPOB 12:43 → OBGYN 12:45
PROVIDERS: PCP Family Medicine; Visit Provider Family Medicine
DX: O24.419 Gestational diabetes mellitus in pregnancy, unspecified control (principal)
CPT/HCPCS: 59025; 99211

== ENCOUNTER 2024-02-03 13:50 | Outpatient (CLI) | payer MEDICAID, SELFPAY ==
[2024-02-03 13:50] VITALS: BMI 41.3
[2024-02-03 14:00] VITALS: BP 131/71; PULSE 94
[2024-02-03 14:16] VITALS: BP 143/87; PULSE 94
[2024-02-03 14:30] VITALS: BP 143/90; PULSE 90
[2024-02-03 14:34] VITALS: BP 137/70; PULSE 70
--- NOTE | 2024-02-03 15:42 | PC.NURSE ---
@ 1430 Pt was bending arm with bp cuff on while it was taking bp, educated pt to relax and keep arm straight. RN retook bp
== END 2024-02-03 14:35 | disposition home or self-care (01) ==
LOC: OPOB 13:54 → OBGYN 13:56
PROVIDERS: PCP Family Medicine; Visit Provider Family Medicine
DX: O24.419 Gestational diabetes mellitus in pregnancy, unspecified control (principal); Z3A.00 Weeks of gestation of pregnancy not specified
CPT/HCPCS: 59025

== ENCOUNTER 2024-02-08 12:00 | Outpatient (CLI) | payer MEDICAID, SELFPAY ==
--- NOTE | 2024-02-08 12:08 | US_ITS ---
WS: [id number] BIOPHYSICAL PROFILE AND LIMITED OB. HISTORY: HIGH RISK /THIRD TRIMESTER/GESTATIONAL DIABETES COMPARISON: 02/01/2024, 01/25/2024, Presentation: Vertex. Cervix: Closed and normal length. Placenta: Anterior, no previa or abruption. Grade: 1 HEART: FHR of 150BPM. measurements: BPD = 8.9 cm = 36w1d; 70% HC = 32.3 cm = 36w4d; 41% AC = 30.3 cm = 34w1d; 20% FL = 6.9 cm = 35w4d; 42% Visually fluid appears appropriate. EFW: 2568.3g; 33% AGA by ultrasound: 35w4d MARY by ultrasound: 03/10/2024 Biophysical profile: Parameters are as follows: Breathin Movement: 2 Tone: 2 Fluid volume: 2 US/US OB lmt w/ BPP wo NST IMPRESSION: 1. Biophysical profile score: 8/8. 2. Single intrauterine gestation of 35w4d with an EDC of 03/10/2024. 3. By biometry measurement there has been no increase in size of the fetus sin e 01/25/2024 with a slight decrease in estimated weight. I believe the elpidio surements are not accurate due to the late gestational age. Head circumference and abdominal circumference were more appropriate on the study from 01/25/2024. The landmarks of the abdomen and head are not well visualized on today's examin ation. 4. Estimated weight at the 33rd percentile. I believe this is probably an underestimation due to the difficulty obtaining accurate measurements. 5. Grade 1 placenta.
== END 2024-02-08 12:01 | disposition home or self-care (01) ==
LOC: RAD 12:00
PROVIDERS: PCP Family Medicine; Visit Provider Family Medicine
DX: O09.93 Supervision of high risk pregnancy, unspecified, third trimester (principal); O24.419 Gestational diabetes mellitus in pregnancy, unspecified control; Z3A.35 35 weeks gestation of pregnancy
CPT/HCPCS: 76815; 76819

== ENCOUNTER 2024-02-08 12:50 | Outpatient (CLI) | payer MEDICAID, SELFPAY ==
[2024-02-08 12:50] VITALS: BMI 42.0
[2024-02-08 13:06] VITALS: BP 125/70; PULSE 75
[2024-02-08 13:21] VITALS: BP 126/73; PULSE 89
[2024-02-08 13:35] VITALS: BP 126/73; PULSE 89; RESP 16; TEMP 36.6
== END 2024-02-08 13:40 | disposition home or self-care (01) ==
LOC: OPOB 12:58 → OBGYN 13:01
PROVIDERS: PCP Family Medicine; Visit Provider Family Medicine
DX: O24.419 Gestational diabetes mellitus in pregnancy, unspecified control (principal); Z3A.00 Weeks of gestation of pregnancy not specified
CPT/HCPCS: 59025; 99211

== ENCOUNTER 2024-02-10 11:11 | Outpatient (CLI) | payer MEDICAID, SELFPAY ==
[2024-02-10 11:11] VITALS: BMI 42.1
[2024-02-10 11:19] VITALS: BP 111/58; PULSE 60
[2024-02-10 11:32] VITALS: BP 119/62; PULSE 59
--- NOTE | 2024-02-14 08:15 | ANE.PACU2 ---
Inpatient post-anesthesia follow up: Airway intact: Yes Vital signs: Temperature Pulse Rate 59 Respiratory Rate Blood Pressure 119/62 Pulse Oximetry Oxygen Delivery Me thod Oxygen Flow Rate Fraction of Inspir ed Oxygen Hydration adequate: Yes Nausea and vomiting: No Pain level: 1 Mental status: Baseline Epidural Start/End: Epidural Start Date: 02/13/24 Epidural Start Time: 23:00 Epidural End Date: 02/14/24 Epidural End Time: 00:12
== END 2024-02-10 11:50 | disposition home or self-care (01) ==
LOC: OPOB 11:11 → OBGYN 11:12
PROVIDERS: PCP Family Medicine; Visit Provider Family Medicine
DX: O24.419 Gestational diabetes mellitus in pregnancy, unspecified control (principal); Z3A.00 Weeks of gestation of pregnancy not specified
CPT/HCPCS: 59025

== ENCOUNTER 2024-02-13 13:00 | Inpatient (IN) | payer MEDICAID, SELFPAY ==
[2024-02-13] VITALS (37 sets, daily range): BP systolic 101–161; BP diastolic 46–86; PULSE 30–176; O2SAT 78–97; BMI 41.6
--- NOTE | 2024-02-13 12:00 | US_ITS ---
WS: [email or web address] ULTRASOUND OB FOCUSED HISTORY: Vaginal Bleeding COMPARISON: 02/08/2024, 02/01/2024 Single intrauterine gestation is identified in vertex presentation. Urinary bladder is not distended. The cervix is not adequately identified. head is partially obscuring the cervix. Cervical insu fficiency is not excluded. Placenta is anterior and grade 2. No abruption or previa. heart rate at 150 BPM. The amount of amniotic fluid is decreasing over the past several examinations. There are still severa l pockets of fluid with the largest measuring 4 cm in depth. US/US OB limited [id number] IMPRESSION: 1. Anterior placenta. No abruption or previa identified. 2. Although the amniotic fluid volume still remains normal it is decreasing ov er the last couple examinations. 3. Cervical length has not been adequately evaluated. Cervix is partially obsc ured by the head at this late gestational age. Cervical insufficiency can not be excluded. If there is clinical concern for cervical insufficiency sugges t transvaginal ultrasound evaluation at this time.
[2024-02-13 12:41] LABS: Blood Urine 3+ (Negative); Glucose Urine UA Norm (Normal); Ketones Urine 1+ (Negative); Protein Urine 3+ (Negative); Specific Gravity, Urine 1.005 (1.005-1.030); Urine Appearance Cloudy (CLEAR); Urine Color Red (Yellow); pH Urine 7 (5-7)
[2024-02-13 12:42] LABS: Add Urine Culture? Yes; Bacteria Urine 1+ /hpf; Bilirubin Urine Neg (Negative); Leukocyte Esterase Urine 2+ (Negative); Nitrate Urine Positive (Negative); RBC Urine TOO NUMEROUS TO CNT /hpf (0-2); Squamous Epithelial Cell Urine 0-4 /hpf (0-5); Urobilinogen Urine Norm (Negative)
--- NOTE | 2024-02-13 13:09 | PM.OBGYHP ---
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 Reports she went to the bathroom and had some blood on the toilet paper and then after that had a gush of blood. After that she did start having some contractions and rates then 2/10 currently. Did have good movement this morning but has been decreased in the last hour. PMHx includes thyroiditis now hypothyroidism, preeclampsia and gestational diabetes. course complicated by hypothyroidism and gestational diabetes- on long acting insulin 16 units, macrosomia as well. care was good and starting in the first trimester. She has had monitoring starting at 32 weeks and has been good. Last growth US with questioned accuracy but EFM of 2568g. Present Details : 3 Para: 1 Labs Blood type OB HPI: A (+) positive Rubella: Immune RPR: Negative GBS: Unknown HBsAG: Negative Other Lab Information: HIV negative Initial H/H 12.7/37.3, Hemoglobin A1c 5.5, TSH 1.27 Pap smear NILM GC/CHlam negative 1hr GTT failed 161 3hr GTT failed 108/201/200/153 3rd trimester H/H 13.0/37.3, TSH 1.69 Review of Systems Const: Denies: fever(s) or chills Card: Denies: chest pain, palpitations or edema Resp: Denies: dyspnea or productive cough GI: Reports: abdominal pain; Denies: nausea or vomiting : Reports: vaginal bleeding Medications/Allergies Home Medications Medication Instructions Recorded Confirmed Last Taken Type vitamin with calcium 1 tab PO DAILY 07/21/23 02/10/24 02/10/24 History no.72-iron 27 mg-folic acid 1 mg tablet (M- Plus) levothyroxine 25 mcg tablet 25 mcg PO DAILY #90 tabs 01/04/24 02/10/24 02/10/24 Rx aspirin 81 mg tablet,delayed 1 mg PO 1XD 01/18/24 02/10/24 02/10/24 History release insulin glargine 100 unit/mL (3 15 unit SUBCUT QAM 01/26/24 02/03/24 1 Day Ago History mL) subcutaneous pen (Lantus ~02/02/24 Solostar U-100 Insulin) Allergies Allergy/AdvReac Type Severity Reaction Status Date / Time No Known Allergies Allergy Verified 02/03/24 15:45 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: Medical History Hyponatremia DAVID (acute kidney injury) Hypercalcemia Nausea & vomiting Post thyroiditis Prolonged rupture of membranes, greater than 24 hours, delivered, current hospitalization Gestational diabetes mellitus (GDM) Pre-eclampsia (normal spontaneous vaginal delivery) No pertinent family history History History History 3 Term 1 0 Miscarriages/Ectopic 1 Living Children 1 Vitals/I&O/Wt Last Vital Signs Pulse 82 02/13/24 12:43 BP 129/78 02/13/24 12:43 Weight last 48 hrs Weight 235 lb Physical Exam Const: COMMON NORMALS: no acute distress, alert and well nourished Resp: COMMON NORMALS: normal respiratory effort and clear to auscultation bilaterally Cardio: COMMON NORMALS: regular rate, regular rhythm, S1 normal heart sound present, S2 normal heart sound present and No murmurs present (Cardio) GI: OTHER: Some point tenderness to right lower abdomen, no rebound pain or guarding : OTHER: SSE with pooling bloody fluid, no clots, os not clearly visualized, + cough test SVE 2.5/50/-3, posterior Extremity: OTHER: No LE edema Data 02/13/24 12:58 02/13/24 12:58 Results Labs OB ([facility]): Obstetrics US 02/13/24 Obstetrics US/Biophysical Profile 02/08/24 Blood Type A Positive 02/13/24 Antibody Screen Negative 02/13/24 Hct 39.0 % (36-47) 02/13/24 Hgb 13.20 g/dL (11.27-16.99) 02/13/24 Rho(D) Type Rh positive 02/13/24 Plt Count 190 10^3/cmm (157-399) 02/13/24 TSH 0.98 uIU/mL (0.27-4.20) 01/18/24 Free T4 0.90 ng/dL (0.82-1.77) 01/18/24 Micro Urine Specimen 02/13/24 A&P Assessment and plan (1) Vaginal bleeding: (2) contractions: (3) Gestational diabetes: Plan 23yo at 35w5d admitted for vaginal bleeding and contractions. Category I FHT. Significant bleeding on exam however Actim PROM is positive as well- may be false positive from bleeding however could be patient has ROM as well. She is anthony q2-3 minutes although rating pain 2/10- plan to recheck SVE 4 hours from prior Discussed plan of care and potential ddx with patient and spouse including but not limited to possibility of SROM, placental abruption, labor. We also discussed the risks of and recommendation for steroid course- after discussion of risks and benefits patient would like betamethasone- plan for 2 doses q24hr if undelivered at that time. Discussed re-evaluation after repeat SVE unless indicated earlier. Continuous EFM. Currently Category I FHT. GBS ppx with ampicillin due to GBS unknown and gestation. Plan for q4hr glucose checks- initial glucose wnl. Attestations Medical Necessity Statement*: Edith Man Valencia's hospital stay will require greater than 2 midnights for vaginal bleeding and contractions with possible delivery and care. Coding Level of Care Code Acute Code for Chg Fwd Diagnoses Vaginal bleeding N93.9 contractions O47.00 Gestational diabetes O24.419
[2024-02-13 13:14] LABS: Actim Prom Positive
[2024-02-13 13:19] LABS: Glucose Point of Care 82 mg/dL (70-110)
[2024-02-13] MEDS: dextrose 5%-lactated ringers 1,000 ML 125 ML IV (13:28)
[2024-02-13] MEDS: ampicillin 2,000 MG in sodium chloride 0.9% (plus) 50 ML 100 MG IV (13:29)
[2024-02-13 13:30] LABS: Basophils % 0.2 %; Eosinophils # 0.1 10^3/uL (0.0-0.8); Eosinophils % 0.6 %; Lymphocytes # 2.1 10^3/uL (0.8-4.8); Lymphocytes % 24.3 %; Mean Corpuscular HGB Conc 33.8 g/dL (30-55); Mean Corpuscular Hemoglobin 32.4 pg (27-33); Mean Corpuscular Volume 95.6 fl (85-98); Mean Platelet Volume 11.8 fL (7.4-10.4); Monocytes # 0.4 10^3/uL (0.2-0.9); Monocytes % 4.8 %; Neutrophils # 6.09 10^3/uL (1.8-7.7); Neutrophils % 69.6 %; Nucleated Red Blood Cells % 0 %; Platelet Count 190 10^3/cmm (157-399); Red Blood Count 4.08 10^6/uL (3.85-5.65); Red Cell Distribution Width 14.3 % (12.1-15.1); White Blood Count 8.74 10^3/uL (3.29-11.43)
[2024-02-13 13:54] LABS: Alanine Aminotransferase 28 U/L (0-33); Albumin Level 3.1 g/dL (3.5-5.2); Alkaline Phosphatase 442 U/L (35-105); Blood Urea Nitrogen 7 mg/dL (6-20); Calcium 8.1 mg/dL (8.5-10.5); Carbon Dioxide 15 mmol/L (22-29); Chloride 107 mmol/L (98-107); Creatinine Clr Calc Pharmacy 253.6129; Globulin 2.9 g/dL (1.3-4.6); Glomerular Filtration Rate 196.1 mL/min (90-130); Glucose 74 mg/dL (65-115); Osmolality Calculated 277 mOsm/kg (285-295); Sodium 135 mmol/L (136-145); Total Bilirubin 0.3 mg/dL (0.15-1.2)
[2024-02-13 14:02] LABS: Aspartate Amino Transferase 38 U/L (0-32)
[2024-02-13 14:13] LABS: Platelet Count 190 10^3/cmm (157-399)
[2024-02-13 14:58] LABS: INR 0.88 (0.8-1.2)
[2024-02-13 14:59] LABS: Fibrinogen 614 mg/dL (174-498); Partial Thromboplastin Time 25.1 SECONDS (23.9-36.7)
[2024-02-13 15:54] LABS: Amphetamines Screen Urine Negative (Negative); Barbiturates Screen Urine Negative (Negative); Benzodiazepines Screen Urine Negative (Negative); Cocaine Screen Urine Negative (Negative); Opiate Screen Urine Negative (Negative); PCP Screen Urine Negative (Negative); THC Screen Urine Negative (Negative)
[2024-02-13] MEDS: betamethasone susp 6 mg/mL 1 mL (per mL) 12 MG IM (16:12)
[2024-02-13 16:58] LABS: Glucose Point of Care 91 mg/dL (70-110)
[2024-02-13] MEDS: ampicillin 1,000 MG in sodium chloride 0.9% (plus) 50 ML 100 MG IV ×2 (18:07→22:00)
--- NOTE | 2024-02-13 18:08 | USR_ITS ---
PROCEDURE INFORMATION: Exam: US , Limited Exam date and time: 02/13/2024 7:49 PM Age: 23 years old Clinical indication: Lmp or gestational age (in weeks): 36w 2d; Antepartum complications; Bleeding and premature rupture of membranes; ; Patient HX: Leaking bloody fluid today; Additional info: Possible srom, courtney with mvp LABS AND CLINICAL REPORTS: Gestational age (Established): 36 w 2 d Estimated due date (Established): 03/10/2024 TECHNIQUE: Imaging protocol: Real-time ultrasound of the maternal uterus with image documentation. Exam focused on the clinical indication. COMPARISON: US OB limited [id number] 02/13/2024 12:13 PM FINDINGS: Gestation: Single, viable intrauterine gestation. heart rate: 157 bpm presentation and position: Cephalic. The fetus is in vertex presentation. Placenta: The placenta is anterior/right lateral. Grade 2 placenta. Amniotic fluid (Qualitative): Amniotic fluid volume is low, consistent with oligohydramnios. Amniotic fluid index: COURTNEY is 3.61 cm. MATERNAL: Cervix: Limited visualization of the maternal cervix due to an incompletely filled bladder. Impression. US/US OB limited [id number] IMPRESSION: 1. Single, viable intrauterine gestation. 2. Oligohydramnios.
--- NOTE | 2024-02-13 22:54 | P.ANESASSM_ITS ---
Pre-Anesthetic Assessment Height/Weight: Height 1.6 m Weight 106.594 kg Pulse BP O2 Del Method 66 113/55 Room Air 02/13/24 19:40 02/13/24 19:40 02/13/24 13:03 Preop Diagnosis: labor pain epidural Exam alert, oriented x 3, clear to auscultation bilaterally and regular rate & rhythm Airway Submandibular: within normal limits Cervical ROM: within normal limits Mallampati: Class II Dentition: full Pulmonary None reported CV/HEM Hypertension None reported Hepatic None reported GI Gastroesophageal Reflux Disease Metabolic Diabetes Mellitus and Thyroid Disease [facility] [place] None reported Neuropsych None reported Anesthetic Plan ASA status: 2 Anesthesia: Anesthesia Evaluation and Regional (specify below) Medications/Allergies Home Medications Medication Instructions Recorded Confirmed Last Taken Type vitamin with calcium 1 tab PO DAILY 07/21/23 02/10/24 02/10/24 History no.72-iron 27 mg-folic acid 1 mg tablet (M-Barry Plus) levothyroxine 25 mcg tablet 25 mcg PO DAILY #90 tabs 01/04/24 02/10/24 02/10/24 Rx aspirin 81 mg tablet,delayed 1 mg PO 1XD 01/18/24 02/10/24 02/10/24 History release insulin glargine 100 unit/mL (3 15 unit SUBCUT QAM 01/26/24 02/03/24 1 Day Ago History mL) subcutaneous pen (Lantus ~02/02/24 Solostar U-100 Insulin) Allergies Allergy/AdvReac Type Severity Reaction Status Date / Time No Known Allergies Allergy Verified 02/03/24 15:45 Current Medications Generic Name Dose Route Start Last Admin Trade Name Frankq PRN Reason Stop Dose Admin Dextrose/Lactated Ringer's 1,000 mls @ 125 mls/hr 02/13/24 13:00 02/13/24 13:28 Dextrose 5%-Lactated Ringers IV 125 mls/hr .Q8H ERIN Administration Ampicillin Sodium 1,000 mg/ 50 mls @ 100 mls/hr 02/13/24 17:00 02/13/24 22:00 Sodium Chloride IV 100 mls/hr Q4H ERIN Administration Protocol [facility] Anesthesia Medical History Hyponatremia DAVID (acute kidney injury) Hypercalcemia Nausea & vomiting Post thyroiditis Prolonged rupture of membranes, greater than 24 hours, delivered, current hospitalization Gestational diabetes mellitus (GDM) Pre-eclampsia (normal spontaneous vaginal delivery) No pertinent family history Female Reproductive History : 3 Data Anesthesia 02/13/24 12:58 02/13/24 12:58 Short CBC 02/13/24 02/13/24 Range/Units 12:58 12:58 WBC 8.74 (3.29-11.43) 10^3/uL Hgb 13.20 (11.27-16.99) g/dL Hct 39.0 (36-47) % MCV 95.6 (85-98) fl Plt Count 190 190 (157-399) 10^3/cmm Neut % (Auto) 69.6 % Neut # (Auto) 6.09 (1.8-7.7) 10^3/uL BMP 02/13/24 12:58 Sodium 135 L Potassium 4.0 Chloride 107 Carbon Dioxide 15 L BUN 7 Creatinine 0.4 L Glucose 74 Calcium 8.1 L Liver Function 02/13/24 Range/Units 12:58 Total Bilirubin 0.3 (0.15-1.2) mg/dL AST 38 H (0-32) U/L ALT 28 (0-33) U/L Alkaline Phosphatase 442 H (35-105) U/L Albumin 3.1 L (3.5-5.2) g/dL Urine 02/13/24 Range/Units 11:55 Urine Color Red A (Yellow) Urine Appearance Cloudy A (CLEAR) Urine pH 7 (5-7) Ur Specific [place] 1.005 (1.005-1.030) Urine Protein 3+ H (Negative) Urine Glucose (UA) Norm (Normal) Urine Ketones 1+ H (Negative) Urine Nitrate Positive H (Negative) Urine Bilirubin Neg (Negative) Ur Leukocyte Esterase 2+ H (Negative) Urine RBC Too numerous to cnt H (0-2) /hpf Urine WBC 5-10 H (0-5) /hpf Blood Bank 02/13/24 12:58 Blood Type A Positive Rho(D) Type Rh positive Antibody Screen Negative Coags 02/13/24 12:58 PT 12.20 INR 0.88 APTT 25.1 Fibrinogen 614 H Cardiac Studies: 2 No Data to Display
--- NOTE | 2024-02-13 23:24 | P.ANES_ITS ---
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, vitals taken during procedure and satisfactory throughout, patient admits to decrease pain, report of procedure to OB RN Epidural: Time Out Performed: Yes Consents Signed: Procedure Consent Consent: requested by attending/covering physician, from patient, risks and benefits reviewed and patient agrees to proceed Lumbar Level: L3-L4 Ep idural position: sitting Epidural procedure: sterile prep of area, 1% lidocaine to numb the area (3 mL), 18 g needle, negative for paresthesia passed, neg for paresthesia, test dose given, 1.5% xylocaine 1:200k epi (5 mL), 0.2% Ropivacaine bolus ml (5 mL), placed PCEA, no systemic response, sterile dressing applied, L.U.D. no apparent complications and 0.2% Ropiavacaine @ mls/hr (13 mL/hr)
[2024-02-14] VITALS (14 sets, daily range): BP systolic 121–156; BP diastolic 55–84; PULSE 60–105; RESP 16–18; TEMP 36.7–36.9; O2SAT 99
--- NOTE | 2024-02-14 00:12 | P.PCNOB_ITS ---
Delivery Note: Date of delivery: February 14, 2024 Pre-delivery diagnoses: Gestational diabetes controlled on insulin labor premature rupture of membranes Vaginal bleeding Post-delivery diagnoses: Delivery of viable male Procedure: Spontaneous vaginal delivery Delivering Physician: Holley Ratliff DO Estimated blood loss (mL): 150 Pre-Delivery Course: Patient was admitted on 02/13/2024 in the afternoon after presenting with vaginal bleeding since approximately 11 AM. She was also noted to have contractions on presentation with initial SVE of 2/50/-4. Limited ultrasound done at that time noted to be with normal fluid volume. She was started on GBS prophylaxis and given a dose of betamethasone. Following her contractions noted to improve however she continued to have vaginal bleeding that appeared to be a thin blood. Repeat SVE after 4 hours was unchanged. Actim PROM was obtained and was positive. Ferning was indeterminate and repeat amniotic fluid volume assessment was noted to be low. Diagnosis PPROM presumed to be at 11 AM. heart tones noted to be Category 1 overall throughout with some occasional 5 to 10- minute periods of minimal variability. Repeat SVE again noted to be 2/80/-4 and following patient noted contractions to increase in intensity at approximately 8 PM. She then quickly progressed to SVE of 8/90/-3 at which time nursing called to advise she was pushing spontaneously. I began and route and arrived to bedside with repeat SVE of 8/90/-3. At that time epidural anesthesia was obtained. Following epidural patient noted to be complete. 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 Claudio was also called and case discussed and at bedside prior to pushing. Delivery: Patient progressed to complete. Patient placed in lithotomy position. Patient pushed with adequate effort. Head delivered in SACHA position, no nuchal cord was present. Shoulders and rest of body delivered without difficulty with inadequate epidural anesthesia. Infant noted to be with spontaneous cry. Infant placed on maternal abdomen. Mouth and nares bulb suctioned. Cord clamped and cut after 1 minute delay. At that time infant was transferred to the warmer to Dr. Claudio and awaiting nursing staff for further resuscitation. Placenta spontaneously delivered and noted to be intact. Pitocin started. Fundus was noted to be firm. The vagina and cervix were inspected and right periurethral first-degree laceration were noted. After placing red Rishi catheter and draining small amount of urine, laceration noted to be hemostatic and was not repaired. Fundus was again noted to be firm. Male born at 2342 at 35 weeks 5 days at 2610g. See infant summary for further details. Placenta noted to be intact with centrally inserted umbilical cord and three- vessel cord. On inspection noted to have amniotic sac tear close to edge of placenta as well as a small less than 1 cm diameter infarct on the opposite edge of the placenta. Umbilical cord noted to have true knot more proximal to infant and tortuous knob more proximal to placenta. Complications: Maternal none tachypnea requiring CPAP and transferred to nursery with Dr. Claudio and nursing staff for further resuscitation. History History History 3 Term 1 1 Miscarriages/Ectopic 1 Living Children 2 A&P Assessment and plan (1) delivery: (2) Spontaneous vaginal delivery: Coding Level of Care Code Acute Code for Chg Fwd Diagnoses delivery O60.10X0 Spontaneous vaginal delivery O80
[2024-02-14] MEDS: ROPivacaine syringe 100 MG/50 ML SYRINGE 10 MG EPIDURAL (03:15)
[2024-02-14] MEDS: oxytocin 30 UNIT/500 ML BAG 600 UNIT IV (03:16)
--- NOTE | 2024-02-14 03:18 | PC.NURSE ---
MAR states medication cannot be scanned for past time, pitocin administered at 2351 600 MLS/HR for 300 MLS. 125 MLS/HR for 200 MLS. ropivicaine administered at 2317.
[2024-02-14] MEDS: HYDROcodone-acetaminophen 5-325 mg Tablet PO (04:13)
[2024-02-14] MEDS: benzocaine-menthol 78 gm Canister 1 SPRAY TOPICAL (04:14)
[2024-02-14 05:58] LABS: Glucose Point of Care 106 mg/dL (70-110)
[2024-02-14 06:23] LABS: Hematocrit 35.4 % (36-47); Mean Corpuscular HGB Conc 33.9 g/dL (30-55); Mean Corpuscular Hemoglobin 32.6 pg (27-33); Mean Corpuscular Volume 96.2 fl (85-98); Mean Platelet Volume 11.1 fL (7.4-10.4); Platelet Count 184 10^3/cmm (157-399); Red Blood Count 3.68 10^6/uL (3.85-5.65); Red Cell Distribution Width 14.2 % (12.1-15.1)
[2024-02-14 07:20] LABS: Glucose Point of Care 112 mg/dL (70-110)
--- NOTE | 2024-02-14 08:38 | PM.OBGYDC ---
Discharge Providers ARTIST MODEL Date of Admission: 02/13/24 Date of Discharge: 02/14/24 Attending Provider at Admission: Holley Ratliff DO Attending Provider at Discharge: Holley Ratliff DO Primary Care Provider: Holley Ratliff DO Diagnoses at Discharge Discharge Diagnosis (1) delivery: Status: Acute (2) Spontaneous vaginal delivery: Status: Acute Reason for Visit Reason for Visit: VAGINAL BLEEDING Hospital Course Hospital Course Estimated blood loss (mL): 150 Pre-Delivery Course: Patient was admitted on 02/13/2024 in the afternoon after presenting with vaginal bleeding since approximately 11 AM. She was also noted to have contractions on presentation with initial SVE of 2/50/-4. Limited ultrasound done at that time noted to be with normal fluid volume. She was started on GBS prophylaxis and given a dose of betamethasone. Following her contractions noted to improve however she continued to have vaginal bleeding that appeared to be a thin blood. Repeat SVE after 4 hours was unchanged. Actim PROM was obtained and was positive. Fer[place] was indeterminate and repeat amniotic fluid volume assessment was noted to be low. Diagnosis PPROM presumed to be at 11 AM. heart tones noted to be Category 1 overall throughout with some occasional 5 to 10-minute periods of minimal variability. Repeat SVE again noted to be 2/80/-4 and following patient noted contractions to increase in intensity at approximately 8 PM. She then quickly progressed to SVE of 8/90/-3 at which time nursing called to advise she was pushing spontaneously. I began en route and arrived to bedside with repeat SVE of 8/90/-3. At that time epidural anesthesia was obtained. Following epidural patient noted to be complete. Internal Wholes[employer] Dr. Claudio was also called and case discussed and at bedside prior to pushing. Delivery: Patient progressed to complete. Patient placed in lithotomy position. Patient pushed with adequate effort. Head delivered in SACHA position, no nuchal cord was present. Shoulders and rest of body delivered without difficulty with inadequate epidural anesthesia. noted to be with spontaneous cry. Infant placed on maternal abdomen. Mouth and nares bulb suctioned. Cord clamped and cut after 1 minute delay. At that time was transferred to the warmer to Dr. Claudio and awaiting nursing staff for further resuscitation. Placenta spontaneously delivered and noted to be intact. Pitocin started. Fundus was noted to be firm. The vagina and cervix were inspected and right periurethral first-degree laceration were noted. After placing red Rishi catheter and draining small amount of urine, laceration noted to be hemostatic and was not repaired. Fundus was again noted to be firm. Male born at 2342 at 35 weeks 5 days at 2610g. See infant summary for further details. Placenta noted to be intact with centrally inserted umbilical cord and three-vessel cord. On inspection noted to have amniotic sac tear close to edge of placenta as well as a small less than 1 cm diameter infarct on the opposite edge of the placenta. Umbilical cord noted to have true knot more proximal to infant and tortuous knob more proximal to placenta. Complications: Maternal none tachypnea requiring CPAP and transferred to nursery with Dr. Claudio and nursing staff for further resuscitation. course: Patient underwent on 02/13/24. course was uncomplicated. Following delivery patient ambulated well, tolerated a normal diet without nausea or vomiting. Pain was well controlled. on PO medications, is in NICU in [place], no leg/calf pain, no calf/leg swelling, normal urination, passing gas. Vaginal bleeding thin lochia and decreasing. labs significant for hemoglobin 12 down from 13.2 on admission. control was discussed and patient is considering nexplanon. Follow-up planned for 2 and 6 weeks . Warning signs for endometritis, pre-eclampsia, DVT/PE, mastitis were reviewed, discussed additional warning signs including increased vaginal bleeding, worsening abdominal pain. Pelvic rest and activity precautions reviewed as well. She is discharged on 02/14/24 in stable condition. Information Peripartum Data: Delivery Method: Vaginal Physical Exam Const: COMMON NORMALS: no acute distress, alert and well nourished Resp: COMMON NORMALS: normal respiratory effort and clear to auscultation bilaterally AUSCULTATION: clear to auscultation bilaterally Cardio: COMMON NORMALS: regular rate, regular rhythm, S1 normal heart sound present, S2 normal heart sound present and No murmurs present (Cardio) RATE: regular rate RHYTHM: regular rhythm HEART SOUNDS: S1 normal heart sound present and S2 normal heart sound present : OTHER: Uterine fundus firm and below the umbilicus Extremity: OTHER: No LE edema Neuro: SENSORIUM/ORIENTATION: Yes alert History History History 3 Term 1 1 Miscarriages/Ectopic 1 Living Children 2 Discharge Data Studies Completed and Pending Completed Studies During Hospitalization Category Date Time Status US OB limited [id number] Stat Ultrasound 02/13/24 12:00 Completed US OB limited [id number] Stat Ultrasound 02/13/24 18:08 Completed Pending at discharge Category Date Time Status Urine Culture Stat Lab 02/13/24 11:55 Received Radiology Impressions Obstetrics Ultrasound 02/13/24 18:08 IMPRESSION: 1. Single, viable intrauterine gestation. 2. Oligohydramnios. ADDENDUM: 02/13/242116 THIS REPORT CONTAINS FINDINGS THAT MAY BE CRITICAL TO PATIENT CARE. The findings were verbally communicated via telephone conference with Holley Nassar at 9:15 PM CDT on 02/13/2024. The findings were acknowledged and understood. Laboratory Results WBC 15.80 10^3/uL (3.29-11.43) H 02/14/24 06:18 RBC 3.68 10^6/uL (3.85-5.65) L 02/14/24 06:18 Hgb 12.00 g/dL (11.27-16.99) 02/14/24 06:18 Hct 35.4 % (36-47) L 02/14/24 06:18 MCV 96.2 fl (85-98) 02/14/24 06:18 MCH 32.6 pg (27-33) 02/14/24 06:18 MCHC 33.9 g/dL (30-55) 02/14/24 06:18 RDW 14.2 % (12.1-15.1) 02/14/24 06:18 Plt Count 184 10^3/cmm (157-399) 02/14/24 06:18 MPV 11.1 fL (7.4-10.4) H 02/14/24 06:18 Neut % (Auto) 69.6 % 02/13/24 12:58 Lymph % (Auto) 24.3 % 02/13/24 12:58 [place] % (Auto) 4.8 % 02/13/24 12:58 Eos % (Auto) 0.6 % 02/13/24 12:58 Baso % (Auto) 0.2 % 02/13/24 12:58 Neut # (Auto) 6.09 10^3/uL (1.8-7.7) 02/13/24 12:58 Lymph # (Auto) 2.1 10^3/uL (0.8-4.8) 02/13/24 12:58 [place] # (Auto) 0.4 10^3/uL (0.2-0.9) 02/13/24 12:58 Eos # (Auto) 0.1 10^3/uL (0.0-0.8) 02/13/24 12:58 Baso # (Auto) 0.0 10^3/uL (0.0-0.1) 02/13/24 12:58 Nucleated RBC % (auto) 0 % 02/13/24 12:58 Nucleated RBCs # 0.0 /100WBC 02/13/24 12:58 PT 12.20 SECONDS (12.1-14.9) 02/13/24 12:58 INR 0.88 (0.8-1.2) 02/13/24 12:58 APTT 25.1 SECONDS (23.9-36.7) 02/13/24 12:58 Fibrinogen 614 mg/dL (174-498) H 02/13/24 12:58 Sodium 135 mmol/L (136-145) L 02/13/24 12:58 Potassium 4.0 mmol/L (3.5-5.1) 02/13/24 12:58 Chloride 107 mmol/L (98-107) 02/13/24 12:58 Carbon Dioxide 15 mmol/L (22-29) L 02/13/24 12:58 Anion Gap 17.0 (5-19) 02/13/24 12:58 BUN 7 mg/dL (6-20) 02/13/24 12:58 Creatinine 0.4 mg/dL (0.5-0.9) L 02/13/24 12:58 GFR Calculation 196.1 mL/min (90-130) H 02/13/24 12:58 Glucose 74 mg/dL (65-115) 02/13/24 12:58 POC Glucose 112 mg/dL (70-110) H 02/14/24 07:16 Calculated Osmolality 277 mOsm/kg (285-295) L 02/13/24 12:58 Calcium 8.1 mg/dL (8.5-10.5) L 02/13/24 12:58 Total Bilirubin 0.3 mg/dL (0.15-1.2) 02/13/24 12:58 AST 38 U/L (0-32) H 02/13/24 12:58 ALT 28 U/L (0-33) 02/13/24 12:58 Alkaline Phosphatase 442 U/L (35-105) H 02/13/24 12:58 Total Protein 6.0 g/dL (6.6-8.7) L 02/13/24 12:58 Albumin 3.1 g/dL (3.5-5.2) L 02/13/24 12:58 Globulin 2.9 g/dL (1.3-4.6) 02/13/24 12:58 Insulin-like GF I Positive 02/13/24 12:40 Urine Color Red (Yellow) A 02/13/24 11:55 Urine Appearance Cloudy (CLEAR) A 02/13/24 11:55 Urine pH 7 (5-7) 02/13/24 11:55 Ur Specific [place] 1.005 (1.005-1.030) 02/13/24 11:55 Urine Protein 3+ (Negative) H 02/13/24 11:55 Urine Glucose (UA) Norm (Normal) 02/13/24 11:55 Urine Ketones 1+ (Negative) H 02/13/24 11:55 Urine Blood 3+ (Negative) H 02/13/24 11:55 Urine Nitrate Positive (Negative) H 02/13/24 11:55 Urine Bilirubin Neg (Negative) 02/13/24 11:55 Urine Urobilinogen Norm mg/dL (Negative) 02/13/24 11:55 Ur Leukocyte Esterase 2+ (Negative) H 02/13/24 11:55 Urine RBC Too numerous to cnt /hpf (0-2) H 02/13/24 11:55 Urine WBC 5-10 /hpf (0-5) H 02/13/24 11:55 Ur Squamous Epith Cells 0-4 /hpf (0-5) H 02/13/24 11:55 Amorphous Sediment Not Reportable 02/13/24 11:55 Urine Bacteria 1+ /hpf (NONE) H 02/13/24 11:55 Urine Opiates Screen Negative ng/mL (Negative) 02/13/24 11:55 Ur Barbiturates Screen Negative ng/mL (Negative) 02/13/24 11:55 Ur Phencyclidine Scrn Negative ng/mL (Negative) 02/13/24 11:55 Ur Amphetamines Screen Negative ng/mL (Negative) 02/13/24 11:55 U Benzodiazepines Scrn Negative ng/mL (Negative) 02/13/24 11:55 Urine Cocaine Screen Negative ng/mL (Negative) 02/13/24 11:55 U Marijuana (THC) Screen Negative ng/mL (Negative) 02/13/24 11:55 Blood Type A Positive 02/13/24 12:58 Rho(D) Type Rh positive 02/13/24 12:58 Antibody Screen Negative 02/13/24 12:58 Vitals Last Vital Signs Pulse 85 02/14/24 02:13 BP 133/84 02/14/24 02:13 Pulse Ox 99 02/14/24 00:10 O2 Del Method Room Air 02/13/24 13:03 Results Labs OB ([facility]): Obstetrics US 02/13/24 Obstetrics US/Biophysical Profile 02/08/24 Blood Type A Positive 02/13/24 Antibody Screen Negative 02/13/24 Hct 35.4 % (36-47) L 02/14/24 Hgb 12.00 g/dL (11.27-16.99) 02/14/24 Rho(D) Type Rh positive 02/13/24 Plt Count 184 10^3/cmm (157-399) 02/14/24 TSH 0.98 uIU/mL (0.27-4.20) 01/18/24 Free T4 0.90 ng/dL (0.82-1.77) 01/18/24 Urine Opiates Screen Negative ng/mL (Negative) 02/13/24 Ur Barbiturates Screen Negative ng/mL (Negative) 02/13/24 Ur Phencyclidine Scrn Negative ng/mL (Negative) 02/13/24 Ur Amphetamines Screen Negative ng/mL (Negative) 02/13/24 U Benzodiazepines Scrn Negative ng/mL (Negative) 02/13/24 Urine Cocaine Screen Negative ng/mL (Negative) 02/13/24 U Marijuana (THC) Screen Negative ng/mL (Negative) 02/13/24 Micro Urine Specimen 02/13/24 Discharge Plan Discharge Patient Disposition: Home Condition: Stable Prescriptions: New ibuprofen 800 mg Tablet 800 mg PO TID Qty: 90 0RF docusate sodium 100 mg Capsule 100 mg PO BID Qty: 60 0RF Continued M-Barry Plus 27 mg iron- 1 mg tablet 1 tab PO DAILY levothyroxine 25 mcg tablet 25 mcg PO DAILY Qty: 90 0RF Discontinued insulin glargine [Lantus Solostar U-100 Insulin] 100 unit/mL (3 mL) insulin pen 15 unit SUBCUT QAM aspirin 81 mg tablet,delayed release (DR/EC) 1 mg PO 1XD Discharge Orders: Discharge Order (Routine); Ordered 02/14/24 Ordered By: Holley Ratliff Referrals: Holley Ratliff DO [Primary Care Provider] - 02/28/24 3:30 pm (2 week: TuesdayFebruary 27 @3:30pm 6 week: TuesdayApril 03 @1:00pm) Discharge Diet: Regular Discharge Activity: Increase activity as tolerated Patient Instructions: Depression (DC), Opioid Safety (DC), Preeclampsia and Eclampsia After Delivery (GEN), Hemorrhage (DC), OB Discharge Report, OB Food/Drug Interaction Guide, OB Care at Home, Opioid Safety, OB Vaginal Deliveries, Abnormal Bleeding Activity Restrictions/Additional Instructions: Pelvic rest for 6 weeks. Follow-up at [address] Ratliff. Discharge Attestations ARTIST MODEL Time Spent in Discharge Care*: greater than 30 min Coding Level of Care Code Acute Code for Chg Fwd Diagnoses delivery O60.10X0 Spontaneous vaginal delivery O80
== END 2024-02-14 10:41 | disposition home or self-care (01) | DRG 805 ==
PROVIDERS: Admitting Provider Family Medicine; PCP Family Medicine; Visit Provider Family Medicine
DX: O42.913 Preterm premature rupture of membranes, unspecified as to length of time between rupture and onset of labor, third trimester (principal); O60.14X0 Preterm labor third trimester with preterm delivery third trimester, not applicable or unspecified; Z37.0 Single live birth; Z3A.35 35 weeks gestation of pregnancy; O99.284 Endocrine, nutritional and metabolic diseases complicating childbirth; E03.8 Other specified hypothyroidism; O24.424 Gestational diabetes mellitus in childbirth, insulin controlled; O69.2XX0 Labor and delivery complicated by other cord entanglement, with compression, not applicable or unspecified; O71.82 Other specified trauma to perineum and vulva; O67.9 Intrapartum hemorrhage, unspecified
CPT/HCPCS: 36415; 36416; 59025; 59409; 76815; 80053; 80306; 81001; 82962; 84112; 85025; 85027; 85049; 85384; 85610; 85730; 86850; 86900; 87086; 96372; 99211; J0290; J0702; J2590; J2795; J7121

== ENCOUNTER 2024-05-10 12:38 | Outpatient (CLI) | payer MEDICAID, SELFPAY ==
--- NOTE | 2024-05-10 12:44 | XR_ITS ---
WS: [email or web address] Exam: XR thoracic spine 3V* [id number] Date/Time of Exam: 05/10/2024 12:45 PM Reason For Exam: CHRONIC BACK PAIN Findings: In the AP projection, the thoracic spine is straight. In the lateral projection, the thoracic curve is well maintained. The intervertebral disc spaces are intact. No fractures or anomalies of the tho racic spine are noted. XR/XR thoracic spine 3V* [id number] IMPRESSION: Negative thoracic spine.
--- NOTE | 2024-05-10 12:48 | XR_ITS ---
WS: [email or web address] Exam: XR knee LT 4V [id number] Date/Time of Exam: 05/10/2024 12:49 PM Reason For Exam: KNEE JOINT PAIN No fracture or dislocation. The joint compartments are preserved. No joint effusion. Normal soft tiss ues. XR/XR knee LT 4V [id number] IMPRESSION: 1. Normal LEFT knee.
--- NOTE | 2024-05-10 12:48 | XR_ITS ---
WS: [email or web address] Exam: XR cervical spine 4-5V [id number] Date/Time of Exam: 05/10/2024 12:49 PM Reason For Exam: NECK PAIN No fracture or dislocation. No flexion or extension instability. There is straightening in the neutra l position. The disc spaces are preserved. Posterior elements are normal. Normal paraspinal soft tiss ues. The odontoid is intact. XR/XR cervical spine 4-5V [id number] IMPRESSION: 1. Straightening of the C-spine otherwise negative exam. 2. No flexion or extension instability.
--- NOTE | 2024-05-10 12:49 | XR_ITS ---
WS: [email or web address] Exam: XR knee RT 4V [id number] Date/Time of Exam: 05/10/2024 12:49 PM Reason For Exam: KNEE JOINT PAIN No fracture or dislocation. The joint compartments are preserved. No joint effusion. Normal soft tiss ues. XR/XR knee RT 4V [id number] IMPRESSION: 1. Normal RIGHT knee.
== END 2024-05-10 12:39 | disposition home or self-care (01) ==
LOC: LAB 12:42
PROVIDERS: PCP Family Medicine; Visit Provider Family Medicine
DX: M54.2 Cervicalgia (principal); M25.561 Pain in right knee; M25.562 Pain in left knee
CPT/HCPCS: 72050; 72072; 73564

== ENCOUNTER 2024-05-16 12:15 | Outpatient (CLI) | payer MEDICAID, SELFPAY ==
[2024-05-16 13:15] LABS: Alanine Aminotransferase 38 U/L (0-33); Alkaline Phosphatase 116 U/L (35-105); Aspartate Amino Transferase 20 U/L (0-32); Blood Urea Nitrogen 6 mg/dL (6-20); Calcium 8.3 mg/dL (8.5-10.5); Carbon Dioxide 22 mmol/L (22-29); Chloride 104 mmol/L (98-107); Free T4 Free Thyroxine 0.47 ng/dL (0.82-1.77); Globulin 2.8 g/dL (1.3-4.6); Glomerular Filtration Rate 151.6 mL/min (90-130); Glucose 86 mg/dL (65-115); Osmolality Calculated 283 mOsm/kg (285-295); Sodium 138 mmol/L (136-145); Thyroid Stimulating Hormone 6.95 uIU/mL (0.27-4.20); Total Bilirubin 0.3 mg/dL (0.15-1.2); Total Protein 6.8 g/dL (6.6-8.7)
[2024-05-17 09:09] LABS: T3 Total 54 ng/dL (76-181)
== END 2024-05-16 12:16 | disposition home or self-care (01) ==
LOC: LAB 12:17
PROVIDERS: PCP Family Medicine; Visit Provider Internal Medicine
DX: E05.90 Thyrotoxicosis, unspecified without thyrotoxic crisis or storm (principal); O90.5 Postpartum thyroiditis; E07.9 Disorder of thyroid, unspecified
CPT/HCPCS: 36415; 80053; 84439; 84443; 84480

== ENCOUNTER → 2024-05-22 09:13 | Outpatient (BNVA) | payer MEDICAID, SELFPAY | PROVIDERS: PCP Family Medicine; Visit Provider Internal Medicine | DX: E11.9 Type 2 diabetes mellitus without complications (principal); E05.90 Thyrotoxicosis, unspecified without thyrotoxic crisis or storm; E07.9 Disorder of thyroid, unspecified | CPT/HCPCS: 36415; 80053; 82310; 83970; 84439; 84443; 84480 ==

== ENCOUNTER 2024-06-19 16:03 | Outpatient (CLI) | payer MEDICAID, SELFPAY ==
[2024-06-19 17:01] LABS: Alanine Aminotransferase 26 U/L (0-33); Alkaline Phosphatase 99 U/L (35-105); Aspartate Amino Transferase 18 U/L (0-32); Blood Urea Nitrogen 12 mg/dL (6-20); Calcium 8.7 mg/dL (8.5-10.5); Carbon Dioxide 21 mmol/L (22-29); Chloride 104 mmol/L (98-107); Free T4 Free Thyroxine 1.06 ng/dL (0.82-1.77); Globulin 3.3 g/dL (1.3-4.6); Glomerular Filtration Rate 122.8 mL/min (90-130); Glucose 84 mg/dL (65-115); Osmolality Calculated 283 mOsm/kg (285-295); Sodium 137 mmol/L (136-145); Thyroid Stimulating Hormone 0.29 uIU/mL (0.27-4.20); Total Bilirubin 0.2 mg/dL (0.15-1.2); Total Protein 7.3 g/dL (6.6-8.7)
== END 2024-06-19 16:04 | disposition home or self-care (01) ==
LOC: LAB 16:04
PROVIDERS: PCP Family Medicine; Visit Provider Internal Medicine
DX: E05.90 Thyrotoxicosis, unspecified without thyrotoxic crisis or storm (principal); E07.9 Disorder of thyroid, unspecified
CPT/HCPCS: 36415; 80053; 84439; 84443

== ENCOUNTER 2024-07-24 14:31 | Outpatient (CLI) | payer MEDICAID, SELFPAY ==
[2024-07-24 15:35] LABS: Free T4 Free Thyroxine 1.44 ng/dL (0.82-1.77)
== END 2024-07-24 14:32 | disposition home or self-care (01) ==
LOC: LAB 14:32
PROVIDERS: PCP Family Medicine; Visit Provider Internal Medicine
DX: E05.90 Thyrotoxicosis, unspecified without thyrotoxic crisis or storm (principal)
CPT/HCPCS: 36415; 84439

== ENCOUNTER 2024-09-25 11:42 | Outpatient (CLI) | payer MEDICAID, SELFPAY ==
[2024-09-25 12:33] LABS: Calcium 8.9 mg/dL (8.5-10.5)
[2024-09-25 12:40] LABS: Parathyroid Hormone 61.2 pg/mL (15-65); Thyroid Stimulating Hormone 0.24 uIU/mL (0.27-4.20)
== END 2024-09-25 11:43 | disposition home or self-care (01) ==
LOC: LAB 11:44
PROVIDERS: PCP Family Medicine; Visit Provider Internal Medicine
DX: E06.3 Autoimmune thyroiditis (principal); E83.51 Hypocalcemia
CPT/HCPCS: 36415; 82310; 83970; 84439; 84443

== ENCOUNTER 2024-09-26 04:04 | Emergency (ER) | payer MEDICAID, SELFPAY ==
[2024-09-26 04:10] VITALS: BP 138/78; PULSE 97; RESP 16; TEMP 36.6; O2SAT 95; BMI 35.4
--- NOTE | 2024-09-26 04:19 | ED_ITS ---
HPI - Abdominal Pain 2 General: Chief Complaint: Abdominal Pain Stated Complaint: ABD Pain\V Time Seen by Provider: 09/26/24 04:09 History of Present Illness: Patient presents to the ER with complaints of midepigastric abdominal pain. Is been going on for about 24 hours. Patient also has nausea vomiting but no diarrhea. Patient says she got over an episode of this lasted 5 days about a week ago. She says she does have thyroid issues so is curious if maybe her thyroid or suggest another GI bug. Related Data Date of Last Menstrual Period: 09/25/24 Previous Rx's Medication Instructions Recorded norgestimate 0.25 mg-ethinyl 1 tab PO DAILY #84 tabs 08/02/24 estradiol 35 mcg tablet (Sprintec (28)) levothyroxine 50 mcg tablet See Rx Instructions .Route 08/20/24 .COMPLEX #30 tabs ondansetron HCl 4 mg tablet 4 mg PO Q8H PRN nausea and 09/26/24 vomiting #14 tabs Allergies Allergy/AdvReac Type Severity Reaction Status Date / Time No Known Allergies Allergy Verified 09/26/24 04:14 Review of Systems 2 General: Reports: 10 or more systems reviewed and unremarkable except in HPI and below PFSH ED 2 PFSH: Medical History Gestational diabetes Hyponatremia DAVID (acute kidney injury) Hypercalcemia Nausea & vomiting Post thyroiditis Prolonged rupture of membranes, greater than 24 hours, delivered, current hospitalization Gestational diabetes mellitus (GDM) Pre-eclampsia (normal spontaneous vaginal delivery) No pertinent family history Social History Smoking and tobacco/nicotine status: never used tobacco/nicotine Female Reproductive History: Date of last menstrual period: 09/25/24 Physical Exam 2 Const: COMMON NORMALS: no acute distress, average body habitus, patient oriented x3, no limitations, healthy appearing, alert and well nourished HENMT: COMMON NORMALS: normocephalic, atraumatic, hearing grossly normal bilaterally, external ears normal, Normal external nose present and moist oral mucous membranes HEAD & SCALP: normocephalic and atraumatic NOSE: Normal external nose present EXTERNAL EAR: Yes external ears normal Neck/C-Spine: COMMON NORMALS: no JVD Chest: COMMONS NORMALS: normal inspection of the chest and normal palpation of entire chest wall Resp: COMMON NORMALS: normal respiratory effort, No retractions, No use of accessory muscles and clear to auscultation bilaterally AUSCULTATION: clear to auscultation bilaterally Cardio: COMMON NORMALS: no JVD, regular rate, regular rhythm, S1 normal heart sound present, S2 normal heart sound present, No gallops present (Cardio), No clicks present (Cardio), No murmurs present (Cardio) and No rub (Cardio) R ATE: regular rate RHYTHM: regular rhythm HEART SOUNDS: S1 normal heart sound present and S2 normal heart sound present GI: COMMON NORMALS: Normal to inspection, nondistended, normoactive bowel sounds present, Soft to palpation, No hepatosplenomegaly present and no masses; negative for non-tender (Tender to palpate midepigastric area) PALPATION: Yes Soft to palpation and Yes No hepatosplenomegaly present Neuro: COMMON NORMALS: patient oriented x3 SENSORIUM/ORIENTATION: Yes alert Course 2 Vital Signs: Vital signs: Vital Signs Temperature 97.9 F 09/26/24 04:10 Pulse Rate 97 09/26/24 04:10 Respiratory Rate 16 09/26/24 04:10 Blood Pressure 138/78 09/26/24 04:10 Pulse Oximetry 95 09/26/24 04:10 Oxygen Delivery Me thod Room Air 09/26/24 04:10 MDM - Abdominal Pain Medical Decision Making Lab work was reviewed which is essentially benign other than a 16.9 white count which may be due to the stress of throwing up. These results was discussed with the patient. Patient was given Zofran for her nausea. She will be orally challenged. If she passes she will be able to go home. Medical Records I reviewed the patient's medical records. Lab Data I reviewed the patient's lab results. 09/26/24 04:15 09/26/24 04:15 Labs/Radiology: Laboratory Results WBC 16.93 10^3/uL (3.29-11.43) H 09/26/24 04:15 RBC 4.94 10^6/uL (3.85-5.65) 09/26/24 04:15 Hgb 14.20 g/dL (11.27-16.99) 09/26/24 04:15 Hct 43.6 % (36-47) 09/26/24 04:15 MCV 88.3 fl (85-98) 09/26/24 04:15 MCH 28.7 pg (27-33) 09/26/24 04:15 MCHC 32.6 g/dL (30-55) 09/26/24 04:15 RDW 13.6 % (12.1-15.1) 09/26/24 04:15 Plt Count 309 10^3/cmm (157-399) 09/26/24 04:15 MPV 9.2 fL (7.4-10.4) 09/26/24 04:15 Neut % (Auto) 73.6 % 09/26/24 04:15 Lymph % (Auto) 20.7 % 09/26/24 04:15 [place] % (Auto) 4.4 % 09/26/24 04:15 Eos % (Auto) 0.5 % 09/26/24 04:15 Baso % (Auto) 0.3 % 09/26/24 04:15 Neut # (Auto) 12.47 10^3/uL (1.8-7.7) H 09/26/24 04:15 Lymph # (Auto) 3.5 10^3/uL (0.8-4.8) 09/26/24 04:15 [place] # (Auto) 0.7 10^3/uL (0.2-0.9) 09/26/24 04:15 Eos # (Auto) 0.1 10^3/uL (0.0-0.8) 09/26/24 04:15 Baso # (Auto) 0.1 10^3/uL (0.0-0.1) 09/26/24 04:15 Nucleated RBC % (auto) 0 % 09/26/24 04:15 Nucleated RBCs # 0.0 /100WBC 09/26/24 04:15 Sodium 142 mmol/L (136-145) 09/26/24 04:15 Potassium 4.0 mmol/L (3.5-5.1) 09/26/24 04:15 Chloride 106 mmol/L (98-107) 09/26/24 04:15 Carbon Dioxide 25 mmol/L (22-29) 09/26/24 04:15 Anion Gap 15.0 (5-19) 09/26/24 04:15 BUN 12 mg/dL (6-20) 09/26/24 04:15 Creatinine 0.8 mg/dL (0.5-0.9) 09/26/24 04:15 GFR Calculation 87.4 mL/min (90-130) L 09/26/24 04:15 Glucose 115 mg/dL (65-115) 09/26/24 04:15 Calculated Osmolality 295 mOsm/kg (285-295) 09/26/24 04:15 Calcium 8.3 mg/dL (8.5-10.5) L 09/26/24 04:15 Magnesium 1.9 mg/dL (1.7-2.3) 09/26/24 04:15 Total Bilirubin 0.2 mg/dL (0.15-1.2) 09/26/24 04:15 AST 15 U/L (0-32) 09/26/24 04:15 ALT 28 U/L (0-33) 09/26/24 04:15 Alkaline Phosphatase 82 U/L (35-105) 09/26/24 04:15 Total Protein 6.5 g/dL (6.6-8.7) L 09/26/24 04:15 Albumin 3.8 g/dL (3.5-5.2) 09/26/24 04:15 Globulin 2.7 g/dL (1.3-4.6) 09/26/24 04:15 Lipase 43 U/L (13-60) 09/26/24 04:15 TSH 0.51 uIU/mL (0.27-4.20) 09/26/24 04:15 Urine Color Yellow (Yellow) 09/26/24 04:15 Urine Appearance Clear (CLEAR) 09/26/24 04:15 Urine pH 5.5 (5-7) 09/26/24 04:15 Ur Specific [place] 1.018 (1.005-1.030) 09/26/24 04:15 Urine Protein Negative (Negative) 09/26/24 04:15 Urine Glucose (UA) Negative (Normal) 09/26/24 04:15 Urine Ketones Negative (Negative) 09/26/24 04:15 Urine Blood Negative (Negative) 09/26/24 04:15 Urine Nitrate Negative (Negative) 09/26/24 04:15 Urine Bilirubin Negative (Negative) 09/26/24 04:15 Urine Urobilinogen 0.2 mg/dL (Negative) 09/26/24 04:15 Ur Leukocyte Esterase Negative (Negative) 09/26/24 04:15 Urine RBC 0-2 /hpf (0-2) 09/26/24 04:15 Urine WBC 0-5 /hpf (0-5) 09/26/24 04:15 Ur Squamous Epith Cells 0-5 /hpf (0-5) 09/26/24 04:15 Amorphous Sediment Not Reportable 09/26/24 04:15 Urine Bacteria None seen /hpf (NONE) 09/26/24 04:15 Hyaline Casts 0-4 /lpf H 09/26/24 04:15 All radiology interpretation(s) finalized by discharge Discharge Plan Discharge Patient Disposition: Home Clinical Impression: Gastroenteritis Condition: Stable Prescriptions: New ondansetron HCl 4 mg tablet 4 mg PO Q8H PRN (Reason: nausea and vomiting) Qty: 14 0RF No Action norgestimate-ethinyl estradiol [Sprintec (28)] 0.25-35 mg-mcg tablet 1 tab PO DAILY Qty: 84 0RF levothyroxine 50 mcg tablet See Rx Instructions .ROUTE .COMPLEX Qty: 30 3RF Dose Instruction: TAKE ONE TABLET BY MOUTH DAILY Rx Instructions: TAKE ONE TABLET BY MOUTH DAILY Discharge Orders: Discharge ED (Routine); Ordered 09/26/24 Ordered By: Andres Roth Referrals: Holley Ratliff DO [Primary Care Provider] - Patient Instructions: Gastroenteritis (ED) Activity Restrictions/Additional Instructions: Thank you for choosing [facility] for your healthcare needs today. Please realize that you were seen in the emergency department and that we are providing you with an emergency medical screening exam and this may not be a complete and all exclusive of all testing and/or medical workup we may need to determine your element or severity of your illness. It is very important that you follow-up as instructed with your primary care provider or specialist for the additional evaluation and to discuss your medical treatment plan. You may return to the emergency department should you have concerns or if your condition changes or worsens in any way. Coding Level of Care Code ED Citizen Participation Specialist for [facility] [place]
[2024-09-26 04:28] LABS: Basophils # 0.1 10^3/uL (0.0-0.1); Basophils % 0.3 %; Eosinophils # 0.1 10^3/uL (0.0-0.8); Eosinophils % 0.5 %; Hematocrit 43.6 % (36-47); Lymphocytes # 3.5 10^3/uL (0.8-4.8); Lymphocytes % 20.7 %; Mean Corpuscular HGB Conc 32.6 g/dL (30-55); Mean Corpuscular Hemoglobin 28.7 pg (27-33); Mean Corpuscular Volume 88.3 fl (85-98); Mean Platelet Volume 9.2 fL (7.4-10.4); Monocytes # 0.7 10^3/uL (0.2-0.9); Monocytes % 4.4 %; Neutrophils # 12.47 10^3/uL (1.8-7.7); Neutrophils % 73.6 %; Nucleated Red Blood Cells % 0 %; Platelet Count 309 10^3/cmm (157-399); Red Blood Count 4.94 10^6/uL (3.85-5.65); Red Cell Distribution Width 13.6 % (12.1-15.1); White Blood Count 16.93 10^3/uL (3.29-11.43)
[2024-09-26 04:49] LABS: Bilirubin Urine Negative (Negative); Blood Urine Negative (Negative); Glucose Urine UA Negative (Normal); Ketones Urine Negative (Negative); Leukocyte Esterase Urine Negative (Negative); Nitrate Urine Negative (Negative); Protein Urine Negative (Negative); Specific Gravity, Urine 1.018 (1.005-1.030); Urine Appearance Clear (CLEAR); Urine Color Yellow (Yellow); Urobilinogen Urine 0.2 mg/dL (Negative); pH Urine 5.5 (5-7)
[2024-09-26 04:53] LABS: Add Urine Microscopic? YES; Alanine Aminotransferase 28 U/L (0-33); Albumin Level 3.8 g/dL (3.5-5.2); Alkaline Phosphatase 82 U/L (35-105); Aspartate Amino Transferase 15 U/L (0-32); Bacteria Urine None Seen /hpf; Blood Urea Nitrogen 12 mg/dL (6-20); Calcium 8.3 mg/dL (8.5-10.5); Carbon Dioxide 25 mmol/L (22-29); Chloride 106 mmol/L (98-107); Creatinine Clr Calc Pharmacy 114.9364; Globulin 2.7 g/dL (1.3-4.6); Glomerular Filtration Rate 87.4 mL/min (90-130); Glucose 115 mg/dL (65-115); Hyaline Casts Urine 0-4 /lpf; Lipase 43 U/L (13-60); Magnesium 1.9 mg/dL (1.7-2.3); Osmolality Calculated 295 mOsm/kg (285-295); RBC Urine 0-2 /hpf (0-2); Sodium 142 mmol/L (136-145); Squamous Epithelial Cell Urine 0-5 /hpf (0-5); Total Bilirubin 0.2 mg/dL (0.15-1.2); Total Protein 6.5 g/dL (6.6-8.7); WBC Urine 0-5 /hpf (0-5)
[2024-09-26 04:59] LABS: Thyroid Stimulating Hormone 0.51 uIU/mL (0.27-4.20)
[2024-09-26] MEDS: ondansetron 4 MG Tablet PO (05:10)
--- NOTE | 2024-09-26 05:51 | PC.NURSE ---
attempted PO challenge. pt sipping on soda but still feels unwell. pt c/o diarrhea
[2024-09-26 05:52] VITALS: BP 145/113; PULSE 98; RESP 18; O2SAT 94
--- NOTE | 2024-09-26 06:08 | PC.NURSE ---
informed MD that pt failed PO challenge and vomited. MD informed about new onset diarrhea.
--- NOTE | 2024-09-26 06:09 | CTR_ITS ---
PROCEDURE INFORMATION: Exam: CT Abdomen And Pelvis Without Contrast Exam date and time: 09/26/2024 6:26 AM Age: 24 years old Clinical indication: Nausea and vomiting; Abdominal pain; Epigastric TECHNIQUE: Imaging protocol: Computed tomography of the abdomen and pelvis without contrast. Radiation optimization: All CT scans at this facility use at least one of these dose optimization techniques: automated exposure control; mA and/or kV adjustment per patient size (includes targeted exams where dose is matched to clinical indication); or iterative reconstruction. COMPARISON: CT abdomen pelvis [facility] [id number] 04/04/2023 10:14 PM RADIATION DOSE METRICS: Total DLP (mGy-cm): 1043.87 FINDINGS: Liver: Normal. No mass. Gallbladder and biliary ducts: Normal. No calcified stones. No ductal dilation. Pancreas: Normal. No ductal dilation. Spleen: Normal. No splenomegaly. Adrenal glands: Normal. No mass. Kidneys and ureters: Normal. No hydronephrosis. Stomach and bowel: Unremarkable. No obstruction. No mucosal thickening. Appendix: No evidence of appendicitis. Intraperitoneal space: Unremarkable. No free air. No significant fluid collection. Vasculature: Unremarkable. No abdominal aortic aneurysm. Lymph nodes: Unremarkable. No enlarged lymph nodes. Urinary bladder: Unremarkable as visualized. Reproductive: Unremarkable as visualized. Bones/joints: Unremarkable. No acute fracture. Soft tissues: Unremarkable. CT/CT abdomen pelvis [facility] [id number] IMPRESSION: No acute findings.
[2024-09-26] MEDS: prochlorperazine 10 mg/2 mL Inj IVP (06:17)
[2024-09-26 06:19] LABS: HCG, Serum Qual Negative (Negative)
[2024-09-26 06:53] VITALS: BP 135/85; PULSE 64; RESP 18; O2SAT 96
[2024-09-26 07:13] VITALS: BP 126/63; O2SAT 96
[2024-09-26 08:58] VITALS: BP 123/65; PULSE 73; O2SAT 95
== END 2024-09-26 08:59 | disposition home or self-care (01) ==
PROVIDERS: Family Medicine; Emergency Provider Emergency Medicine; PCP Family Medicine
DX: K52.9 Noninfective gastroenteritis and colitis, unspecified (principal)
CPT/HCPCS: 74176; 80053; 81001; 83690; 83735; 84443; 84703; 85025; 96374; 99285; J0780; Q0162

== ENCOUNTER 2024-12-26 12:42 | Outpatient (CLI) | payer MEDICAID, SELFPAY ==
[2024-12-26 13:15] LABS: Alanine Aminotransferase 23 U/L (0-33); Albumin Level 4.1 g/dL (3.5-5.2); Alkaline Phosphatase 56 U/L (35-105); Aspartate Amino Transferase 18 U/L (0-32); Chloride 105 mmol/L (98-107); Glucose 109 mg/dL (65-115); Sodium 142 mmol/L (136-145)
[2024-12-26 13:42] LABS: Blood Urea Nitrogen 14 mg/dL (6-20); Calcium 9.3 mg/dL (8.5-10.5); Carbon Dioxide 20 mmol/L (22-29); Glomerular Filtration Rate 87.4 mL/min (90-130); Osmolality Calculated 295 mOsm/kg (285-295); Total Bilirubin 0.2 mg/dL (0.15-1.2)
[2024-12-26 13:43] LABS: Globulin 3.2 g/dL (1.3-4.6); Total Protein 7.3 g/dL (6.6-8.7)
[2024-12-26 13:59] LABS: Free T4 Free Thyroxine 0.88 ng/dL (0.82-1.77); Thyroid Stimulating Hormone 3.32 uIU/mL (0.27-4.20)
== END 2024-12-26 12:43 | disposition home or self-care (01) ==
LOC: LAB 12:44
PROVIDERS: PCP Family Medicine; Visit Provider Internal Medicine
DX: E06.3 Autoimmune thyroiditis (principal); E83.51 Hypocalcemia
CPT/HCPCS: 36415; 80053; 84439; 84443

== ENCOUNTER 2025-03-13 03:50 | Emergency (ER) | payer MEDICAID, SELFPAY ==
[2025-03-13 03:58] VITALS: BP 135/87; PULSE 73; RESP 16; TEMP 36.4; O2SAT 98; BMI 35.4
[2025-03-13 04:05] VITALS: BP 135/87; PULSE 94; O2SAT 98
--- NOTE | 2025-03-13 04:07 | XRR_ITS ---
PROCEDURE INFORMATION: Exam: XR Chest Exam date and time: 03/13/2025 4:16 AM Age: 24 years old Clinical indication: Cough; Additional info: Cough, upper respiratory infection TECHNIQUE: Imaging protocol: Radiologic exam of the chest. Views: 2 views. COMPARISON: CT abdomen pelvis con [id number] 09/26/2024 6:26 AM FINDINGS: Lungs: Unremarkable. No consolidation. Pleural spaces: Unremarkable. No pleural effusion. No pneumothorax. Heart/Mediastinum: Unremarkable. No cardiomegaly. Bones/joints: Unremarkable. XR/XR chest 2V* [id number] IMPRESSION: No acute findings.
--- NOTE | 2025-03-13 04:07 | XRR_ITS ---
PROCEDURE INFORMATION: Exam: XR Left Toe(s) Exam date and time: 03/13/2025 4:18 AM Age: 24 years old Clinical indication: Pain; Toes; Left; Additional info: Middle toe pain - stubbed 2 days ago TECHNIQUE: Imaging protocol: Radiologic exam of the left toes. Views: Minimum 2 views. COMPARISON: CR XR knee LT 4V [id number] 05/10/2024 12:52 PM FINDINGS: Bones/joints: There is minimal high density material adjacent to the lateral aspect of the D IP joint although closer to the surfaces skin then to the joint space. This may be debris in the skin or represent a small chip fracture. This appears to represent debris in or ON the skin surface rather than a fracture. However correlate clinically No other osseous or joint abnormality. Soft tissues: See Bones/joints finding. XR/XR toe LT min 2V [id number] IMPRESSION: Soft tissue calcifications near the D IP joint. This probably does not represent a fracture but correlate clinically.
[2025-03-13 05:40] VITALS: BP 140/84; PULSE 94; O2SAT 97
--- NOTE | 2025-03-13 05:43 | W.ED.URI ---
HPI - URI/Sore Throat General: Chief Complaint: Upper Respiratory Infection Stated Complaint: Possible Staff Infection Time Seen by Provider: 03/13/25 04:01 History of Present Illness: Patient presents with a three-day history of severe cough and nasal discomfort. Reports recent onset of pain with coughing, particularly in the last day. Denies known lung problems such as asthma and does not smoke. No mention of fever. The cough is the primary symptom affecting daily life; no limitations in walking or exercise reported. Patient?s boyfriend has recently been hospitalized twice in the past three weeks for a chest infection and received antibiotics and steroids. Additionally, patient reports left middle toe pain after stubbing it, with tenderness on touch but no visible swelling or deformity; able to walk without difficulty. Related Data Previous Rx's ?Medication ?Instructions ?Recorded norgestimate 0.25 mg-ethinyl 1 tab PO DAILY #84 tabs 08/02/24 estradiol 0.035 mg tablet (Sprintec (28)) ondansetron HCl 4 mg tablet 4 mg PO Q8H PRN nausea and 09/26/24 vomiting #14 tabs levothyroxine 25 mcg tablet 25 mcg PO DAILY #90 tabs 01/25/25 benzonatate 100 mg capsule 100 mg PO TID PRN cough #30 caps 03/13/25 Allergies Allergy/AdvReac Type Severity Reaction Status Date / Time No Known Allergies Allergy Verified 01/24/25 13:50 [facility] ED PFSH: Medical History Gestational diabetes Hyponatremia DAVID (acute kidney injury) Hypercalcemia Nausea & vomiting Post thyroiditis Prolonged rupture of membranes, greater than 24 hours, delivered, current hospitalization Gestational diabetes mellitus (GDM) Pre-eclampsia (normal spontaneous vaginal delivery) No pertinent family history Social History Smoking and tobacco/nicotine status: unknown if used tobacco/nicotine Physical Exam Const: COMMON NORMALS: no acute distress, patient oriented x3 and alert HENMT: COMMON NORMALS: normocephalic and atraumatic HEAD & SCALP: normocephalic and atraumatic Eye: COMMON NORMALS: Equal, round and reactive pupils present, EOMs intact bilaterally and no scleral icterus PUPIL: Yes Equal, round and reactive pupils present Resp: COMMON NORMALS: normal respiratory effort and No retractions Cardio: COMMON NORMALS: regular rate, regular rhythm and No murmurs present (Cardio) RATE: regular rate RHYTHM: regular rhythm GI: COMMON NORMALS: Normal to inspection, nondistended, normoactive bowel sounds present, Soft to palpation and non-tender PALPATION: Yes Soft to palpation Neuro: COMMON NORMALS: patient oriented x3 SENSORIUM/ORIENTATION: Yes alert Skin: COMMON NORMALS: no rashes or lesions noted GENERAL SKIN EXAM: no rashes or lesions noted Course Vital Signs: Vital signs: Vital Signs Temperature 97.6 F 03/13/25 03:58 Pulse Rate 94 03/13/25 04:05 Respiratory Rate 16 03/13/25 03:58 Blood Pressure 135/87 03/13/25 04:05 Pulse Oximetry 98 03/13/25 04:05 Oxygen Delivery Me thod Room Air 03/13/25 04:05 MDM - URI/Sore Throat Medical Decision Making Patient remained hemodynamically stable throughout ED course. I did not hear her cough a single time while here. Chest x-ray is clear and x-ray of the toe shows no acute fracture or dislocation. Given her history, I suspect she may be suffering from a viral upper respiratory infection. She will be given Tessalon Perles for her cough and discharged in stable condition. Lab Data Radiology Impressions Chest X-Ray 03/13/25 04:07 IMPRESSION: No acute findings. Toe X-Ray 03/13/25 04:07 IMPRESSION: Soft tissue calcifications near the D IP joint. This probably does not represent a fracture but correlate clinically. All radiology interpretation(s) finalized by discharge Discharge Plan Discharge Patient Disposition: Home Clinical Impression: Cough Condition: Stable Prescriptions: New benzonatate 100 mg capsule 100 mg PO TID PRN (Reason: cough) Qty: 30 0RF No Action norgestimate-ethinyl estradiol [Sprintec (28)] 0.25-35 mg-mcg tablet 1 tab PO DAILY Qty: 84 0RF levothyroxine 25 mcg tablet 25 mcg PO DAILY Qty: 90 1RF ondansetron HCl 4 mg tablet 4 mg PO Q8H PRN (Reason: nausea and vomiting) Qty: 14 0RF Discharge Orders: Discharge ED (Routine); Ordered 03/13/25 Ordered By: Bill Hernández Referrals: Holley Ratliff DO [Primary Care Provider, HEAVY FORGING MACHINE OPERATOR] Patient Instructions: Patient Portal & Shruti Instructions, Upper Respiratory Infection - Adult Activity Restrictions/Additional Instructions: Your x-ray is reassuring with no evidence of pneumonia. You do not have a fever. Antibiotics will not help you as your infection is caused by a virus which will get better with time. You are prescribed cough medicine. Please follow-up with your primary care doctor Print Language: Danish Coding Level of Care Code ED Loop Cutter for Ben Newby
== END 2025-03-13 05:46 | disposition home or self-care (01) ==
PROVIDERS: Emergency Provider Student in an Organized Health Care Education/Training Program; PCP Family Medicine
DX: R05.9 Cough, unspecified (principal)
CPT/HCPCS: 71046; 73660; 99284

== ENCOUNTER 2025-05-22 08:39 | Emergency (ER) | payer MEDICAID, SELFPAY ==
[2025-05-22 08:53] VITALS: BP 129/81; PULSE 92; RESP 18; TEMP 36.7; O2SAT 98; BMI 36.6
--- NOTE | 2025-05-22 08:58 | ED_ITS ---
HPI - Extremity Problem General: Chief complaint: Extremity Problem,Nontraumatic Stated complaint: L foot Pain Time Seen by Provider: 05/22/25 08:40 History of Present Illness: 24-year-old female presents emergency ro om left foot pain. This been going on for the last week she refers the pain more to the medial arch posteriorly radiating up to the medial malleolus. Nurses notes she had reported Achilles region pain however when I palpate that area she has no real significant pain. She is able to bear weight no trauma that Vick that she can recall no previous surgery or injury to the foot. Related Data Previous Rx's ?Medication ?Instructions ?Recorded norgestimate 0.25 mg-ethinyl 1 tab PO DAILY #84 tabs 1 10/02/23 estradiol 0.035 mg tablet (Sprintec (28)) ondansetron HCl 4 mg tablet 4 mg PO Q8H PRN nausea and 09/26/24 vomiting #14 tabs levothyroxine 25 mcg tablet 25 mcg PO DAILY #90 tabs 0 01/25/25 benzonatate 100 mg capsule 100 mg PO TID PRN cough #30 caps 03/13/25 diclofenac sodium 75 mg 75 mg PO Q12H PRN pain #20 t abs 05/22/25 tablet,delayed release Allergies Allergy/AdvReac Type Severity Reaction Status Date / Time No Known Allergies Allergy Verified 01/24/25 13:50 Review of Systems Musc: Reports: joint pain [facility] ED PFSH: Medical History Gestational diabetes Hyponatremia DAVID (acute kidney injury) Hypercalcemia Nausea & vomiting Post thyroiditis Prolonged rupture of membranes, greater than 24 hours, delivered, current hospitalization Gestational diabetes mellitus (GDM) Pre-eclampsia (normal spontaneous vaginal delivery) No pertinent family history Social History Smoking and tobacco/nicotine status: unknown if used tobacco/nicotine Physical Exam Extremity: OTHER: Examination of the left foot normal pulses sensation normal good capillary refill good dorsi and plantarflexion pain with palpation over the medial arch po steriorly and over the medial malleolus. Course Vital Signs: Vital signs: Vital Signs Temperature 98.1 F 05/22/25 08:53 Pulse Rate 87 05/22/25 09:41 Respiratory Rate 18 05/22/25 08:53 Blood Pressure 129/81 05/22/25 09:41 Pulse Oximetry 98 05/22/25 09:41 Oxygen Delivery Me thod Room Air 05/22/25 08:53 MDM - Extremity (Nontraumatic) Medical Decision Making No acute fractures on the x-ray. Start patient on anti-inflammatories. Ice and elevate as she is able avoid excessive activities. Follow-up with podiatry case management will make arrangements. Lab Data Radiology Impressions Foot X-Ray 05/22/25 08:58 Impression: Negative left foot. Ankle X-Ray 05/22/25 09:04 Impression: Negative left ankle. All radiology interpretation(s) finalized by discharge Discharge Plan Discharge Patient Disposition: Home Clinical Impression: Acute left ankle pain Condition: Stable Prescriptions: New diclofenac sodium 75 mg tablet,delayed release (DR/EC) 75 mg PO Q12H PRN (Reason: pain) Qty: 20 0RF No Action norgestimate-ethinyl estradiol [Sprintec (28)] 0.25-35 mg-mcg tablet 1 tab PO DAILY Qty: 84 0RF levothyroxine 25 mcg tablet 25 mcg PO DAILY Qty: 90 1RF ondansetron HCl 4 mg tablet 4 mg PO Q8H PRN (Reason: nausea and vomiting) Qty: 14 0RF benzonatate 100 mg capsule 100 mg PO TID PRN (Reason: cough) Qty: 30 0RF Discharge Orders: Discharge ED (Routine); Ordered 05/22/25 Ordered By: Jhon Condon Referrals: Holley Ratliff DO [Primary Care Provider, MAINTENANCE SERVICE TECHNICIAN] Discharge Diet: Usual diet Discharge Activity: Resume usual activity Patient Instructions: Opioid Safety, Pain Management, Patient Portal & Shruti Instructions Activity Restrictions/Additional Instructions: Thank you for choosing [facility] for your healthcare needs today. It is very important that you follow up as instructed or that you return to the Emergency Department should you have concerns or if your condition changes or worsens in any way. Emergency department visits are focused on emergent conditions, in some cases you may require further evaluation on an outpatient basis. You were seen in the emergency room with complaints of left foot and ankle pain. X-rays did not show any acute fracture. You are given a prescription for diclofenac and will make a follow-up appointment for you with podiatry to further evaluate. Ice and avoid excessive activity until you see podiatry. (Please note that included in your discharge packet is information concerning opioid safety and pain management. This information is given to all patients were discharged from the ER regardless of their discharge diagnosis or the medicines they usually take or are prescribed.) Print Language: Turkish Coding Level of Care Code ED Manager Summer for Ben Newby
--- NOTE | 2025-05-22 08:58 | XR_ITS ---
WS: [id number] Left foot, 3 views, 05/22/2025 Clinical Data: Pain Comparison: None. Findings: No fractures or dislocations are seen. No bone destruction or erosion is noted. The joint spaces and soft tissues are normal. There is minimal calcification adjacent to the DIP joint of the left third toe on the ulnar side. XR/XR foot LT min 3V* [id number] Impression: Negative left foot.
--- NOTE | 2025-05-22 09:04 | XR_ITS ---
WS: [id number] Left ankle, 3 views, 05/22/2025 Clinical Data: Pain Comparison: None. Findings: No fractures or dislocations are seen. The ankle mortise is normal. The talus and calcaneus are unremarkable. No soft tissue swelling over the medial or lateral malleolus is seen. XR/XR ankle LT min 3V* [id number] Impression: Negative left ankle.
[2025-05-22 09:41] VITALS: BP 129/81; PULSE 87; O2SAT 98
--- NOTE | 2025-05-23 07:36 | DCPLANNER ---
messaged podiatry for er f/u
== END 2025-05-22 09:44 | disposition home or self-care (01) ==
PROVIDERS: Emergency Provider Family Medicine; PCP Family Medicine
DX: M25.572 Pain in left ankle and joints of left foot (principal)
CPT/HCPCS: 73610; 73630; 99283

== ENCOUNTER 2025-08-30 09:09 | Outpatient (CLI) | payer MEDICAID, SELFPAY ==
[2025-08-30 10:10] LABS: Alanine Aminotransferase 25 U/L (0-33); Albumin Level 4.5 g/dL (3.5-5.2); Alkaline Phosphatase 60 U/L (35-105); Anion Gap 18.8 (5-19); Aspartate Amino Transferase 23 U/L (0-32); Blood Urea Nitrogen 10 mg/dL (6-20); Calcium 9.2 mg/dL (8.5-10.5); Carbon Dioxide 23 mmol/L (22-29); Chloride 101 mmol/L (98-107); Free T4 Free Thyroxine 1.01 ng/dL (0.82-1.77); Globulin 3.0 g/dL (1.3-4.6); Glucose 115 mg/dL (65-115); Osmolality Calculated 288 mOsm/kg (285-295); Potassium 3.8 mmol/L (3.5-5.1); Sodium 139 mmol/L (136-145); Thyroid Stimulating Hormone 2.68 uIU/mL (0.27-4.20); Total Protein 7.5 g/dL (6.6-8.7)
== END 2025-08-30 09:10 | disposition home or self-care (01) ==
LOC: LAB 09:12
PROVIDERS: PCP Family Medicine; Visit Provider Family Medicine
DX: E11.9 Type 2 diabetes mellitus without complications (principal); E06.3 Autoimmune thyroiditis
CPT/HCPCS: 36415; 80053; 84439; 84443